=== PATIENT | male | born 1960 | race Caucasian/White ===

== ENCOUNTER 2020-06-23 13:44 | Inpatient (IN) | payer BC ==
[2020-06-23] MEDS ORDERED: Iopamidol-370 76% 500 ML 1 ML ONE (14:12)
[2020-06-23] MEDS ORDERED: Magnevist 469MG/ML 20 ML VIAL ONE ×3 (14:25)
[2020-06-23] MEDS ORDERED: Ondansetron PF 4 MG/2 ML Vial ONE (15:15)
[2020-06-23] MEDS ORDERED: Morphine 4 MG/ML VIAL ONE ×2 (15:15→17:52)
[2020-06-23 15:18] LABS: Hemoglobin 12.7 g/dL (14.0-18.0); Mean Corpuscular HGB CONC 31.9 g/dL (32.0-36.0); Mean Corpuscular Hemoglobin 28.1 pg (27.0-31.0); Mean Corpuscular Volume 87.8 fL (78.0-98.0); Mean Platelet Volume 9.3 fL (7.4-10.4); Platelet Count 174 thou/uL (130-400); RBC Distribution Width 12.9 % (11.5-14.5); Red Blood Cell (RBC) Count 4.51 mill/uL (4.70-6.10); White Blood Cell (WBC) Count 19.5 thou/uL (4.8-10.8)
[2020-06-23 15:38] LABS: ALT (SGPT) 32 U/L (8-55); AST (SGOT) 22 U/L (5-34); Albumin 2.5 g/dL (3.5-5.0); Alkaline Phosphatase 239 U/L (40-110); Anion Gap 23 mmol/L (10-20); BUN (Urea Nitrogen) 29 mg/dL (8.4-25.7); CK (CPK) 50 U/L (30-200); Calc. Creatinine Clearance 0 mL/min (70-130); Calcium 8.9 mg/dL (7.8-10.44); Carbon Dioxide 19 mmol/L (22-29); Chloride 93 mmol/L (98-107); Globulin 3.8 g/dL (2.4-3.5); Glucose 502 mg/dL (70-105); Potassium 4.1 mmol/L (3.5-5.1); Protein, Total 6.3 g/dL (6.0-8.3); Sodium 131 mmol/L (136-145)
[2020-06-23 15:40] LABS: Band 62 % (5-11); Lymphocytes 3 % (21-51); MDiff Complete? YES; Monocytes 1 % (0-10); Neutrophil 31 % (42-75); Platelet Morphology Comment Appears Adequate; Polychromasia SLIGHT = 2-3 cells (100X) (0-2/hpf); Reactive Lymphocytes 3 % (0-10); Reflex for Review?? YES; Target Cells SLIGHT = 2-5 cells (100X) (0-1/hpf)
--- NOTE | 2020-06-23 15:50 | RAD ---
Exam: Chest one view HISTORY:Sepsis workup. Fall Comparison: 08/18/2010 FINDINGS: Cardiac silhouette: Normal Aorta: Unremarkable Pulmonary vessels: Normal Costophrenic angles: Clear LUNGS: No masses or consolidation. Pneumothorax: None Osseous abnormalities: No acute osseous abnormalities. Low-grade chondroid lesion in the proximal lef t humerus IMPRESSION: No acute cardiopulmonary process.
[2020-06-23] MEDS ORDERED: Cefepime 2 GM VIAL ONE (15:59)
--- NOTE | 2020-06-23 16:00 | RAD ---
XR Foot Lt 3 View STANDARD INDICATION: Fall with left great toe pain COMPARISON: None. FINDINGS: Bones: There is diffuse osteopenia. No displaced fracture is evident. There is enthesopathic change o ff the calcaneus. Joints: There is scattered osteoarthrosis of the midfoot and forefoot. There is an accessory ossicle seen adjacent to the navicular. Lisfranc alignment: Lisfranc alignment appears within normal limits. Soft tissues: There is prominent soft tissue swelling of the left great toe. IMPRESSION: Prominent great toe soft tissue swelling. No acute fracture or subluxation demonstrated.
[2020-06-23 16:21] LABS: INR-International Normal Ratio 1.2; PTT 30.9 sec (22.9-36.1); Prothrombin Time 15.1 sec (12.0-14.7)
[2020-06-23 16:37] LABS: Bacteria/HPF None Seen HPF (None Seen); Bilirubin Negative (Negative); Blood, Urine 1+ (Negative); Clarity Clear (Clear); Glucose, Urine (Dipstick) Greater than 1000 mg/dL (Negative); Ketone, Urine Greater than 150 mg/dL (Negative); Leukocyte Negative Leu/uL (Negative); Mucous/LPF Rare LPF (<2+); Nitrite Negative (Negative); Protein, Urine (Dipstick) 30 mg/dL (Neg-Trace); Specific Gravity, Urine 1.027 (1.002-1.036); Squamous Epithelial 0-3 HPF (0-3); Urobilinogen Normal mg/dL (Less than 2); WBC/HPF 0-3 HPF (0-3)
[2020-06-23] MEDS ORDERED: Heparin 1,000 UNITS/ML VIAL ONE (16:38)
[2020-06-23 16:50] LABS: CKMB 0.8 ng/mL (0-6.6)
--- NOTE | 2020-06-23 16:59 | CT ---
CT Brain WO Con: 06/23/2020 4:56 PM CLINICAL HISTORY: History of fall with head injury. IMAGING TECHNIQUE: Multiple CT images were obtained of the brain without IV contrast. COMPARISON: None. FINDINGS: BRAIN: Evidence of acute infarct: None. Evidence of chronic ischemic change:None. Evidence of intracranial hemorrhage: None. Evidence of brain volume loss:None. Evidence of midline shift: Third ventricle and septum pellucidum are midline. Ventricles: Normal. No hydrocephalus. SKULL: Intact. VISUALIZED PARANASAL SINUSES: Clear. MASTOID AIR CELLS: Clear. EXTRACRANIAL SOFT TISSUES: Normal. IMPRESSION: No acute intracranial abnormality.
--- NOTE | 2020-06-23 17:08 | CT ---
EXAM: CT of the thoracic spine without contrast HISTORY: Back pain after fall 5 days ago COMPARISON: None TECHNIQUE: Multiple contiguous axial images were obtained in a CT of the thoracic spine without contr ast. Sagittal and coronal reformats were performed. FINDINGS: Degenerative changes are seen throughout the thoracic spine with multiple bridging osteophy shoshana. Diffuse osteopenia is seen. The vertebral bodies and intervertebral discs demonstrate normal height and alignment without fracture or subluxation. . Atelectasis is seen in the dependent aspect of the lungs. The heart is enlarged. Calcifications are seen in the coronary arteries and aorta.. No prevertebral soft tissue swelling is seen. IMPRESSION: Degenerative changes without evidence of acute osseous abnormality of the thoracic spine.
[2020-06-23] MEDS ORDERED: Vancomycin 1.5 GRAM/300 ML BAG 1.5 GM in Premix Bag 1 BAG IVPB SCH (17:30)
--- NOTE | 2020-06-23 17:40 | CT ---
EXAM: CT neck with contrast HISTORY: Severe neck pain. Evaluate for abscess. COMPARISON: None TECHNIQUE: Multiple contiguous axial images were obtained and a CT of the neck with contrast. Sagitta l and coronal reformats were performed. FINDINGS: No mucosal abnormality is seen in the nasopharynx, oropharynx, hypopharynx, or subglottic regions. The parapharyngeal spaces are symmetric. No focal fluid collection is seen in the soft tissues of the neck. No cervical adenopathy is seen. The salivary glands are symmetric without focal abnormality. The thyroid is unremarkable. Moderate to severe degenerative changes are seen throughout cervical spine with multiple anterior mike dging osteophytes. There is no evidence of acute fracture or subluxation. The visualized intracranial structures are unremarkable. The lung apices are unremarkable. IMPRESSION: No significant soft tissue abnormality of the neck.
--- NOTE | 2020-06-23 18:00 | CT ---
EXAM: LUMBAR SPINE CT SCAN WITHOUT IV CONTRAST: 06/23/20 HISTORY: Pain following an injury, fall. FINDINGS: There is very severe bone demineralization. Fairly extensive multilevel disc osteophytosis and facet arthrosis changes. No evidence for acute lumbar spine fracture. There are several tiny punctate foci of gas adjacent to the left 11th rib probably related to a more superior adjacent rib fracture. Small right lobe of liver medial cyst. No significant lumbar spine significant canal, lateral recess, or f oraminal stenosis. IMPRESSION: Significant bone demineralization. Generalized spondylosis. No acute lumbar spine fracture or disloca tion or significant stenosis. POS: RRE
[2020-06-23] MEDS ORDERED: Lorazepam 2 MG/ML VIAL ONE (18:24)
--- NOTE | 2020-06-23 19:56 | PDOC.HHP ---
Hospitalist LEXI Back pain, weakness History of Present Illness: Patient is a 59 year old male with PMH DM who presents via EMS for back and neck pain. Patient spouse provided history to ED staff that patient had been weak recently and last weekend fell walking to restroom. Ambulation became more difficult over week and patient had to start using a walker. He reports hitting L ribs and foot when he fell 5 days ago. Neck pain and neck ROM has significantly worsened since falling. Patient reports he has difficulty using his arms and legs. He has He has had 1 episode of urinary incontinence. No reported fever or chills. He has reported some dizziness. Patient went to homeopathic doctor who tested patient positive for Saulo Tyson Virus. Patient described the weakness as ascending from feet upwards. He developed wound on foot 2 weeks ago which has progressed to involve the great toe and up to front of dorsum of foot. In ED, pulse 111, temperature 100.5. WBC 19.5, glucose elevated, CO2 low and anion gap elevated. UA positive for glucose and ketones. beta hydroxybutyrate positive. Patient to be admitted for sepsis, suspected secondary to toe osteomyelitis and also weakness. Allergies/Adverse Reactions: Allergy/AdvReac Type Severity Reaction Status Date / Time No Known Allergies Allergy Unverified 06/23/20 17:24 Past History: PMHx: no significant PMH PSHx: no significant PSH FHx: no significant FH Social: denies alcohol, drug, smoking history Hospitalist LEXI KLEIN Constitutional: reports: fever, chills, sweats, weakness, malaise Eyes: denies: pain, vision change, conjunctivae inflammation, eyelid inflammation, redness, other ENT: denies: ear pain, ear discharge, nose pain, nose discharge, nose congestion, mouth pain, mouth swelling, throat pain, throat swelling, other Respiratory: denies: cough, dry, shortness of breath, hemoptysis, SOB with excertion, pleuritic pain, sputum, wheezing, other Cardiovascular: denies: chest pain, palpitations, orthopnea, paroxysmal noc. dyspnea, edema, light headedness, other Genitourinary: reports: incontinence. denies: dysuria, frequency, hematuria, retention, other Musculoskeletal: reports: neck pain, shoulder pain, arm pain, back pain, leg pain Skin: reports: rash (L great tow), lesions Neurological: reports: weakness, numbness All other systems reviewed; all pertinent +/- noted in HPI/Subj Hospitalist Exam General Appearance: NAD, awake alert, ill appearing Eye: PERRL, anicteric sclera ENT: normocephalic atraumatic, no oropharyngeal lesions, moist mucosa Neck: supple, symmetric, no JVD, no thyromegaly, no lymphadenopathy, no carotid bruit Heart: RRR, no murmur, no gallops, no rubs, normal peripheral pulses Respiratory: CTAB, no wheezes, no rales, no ronchi, normal chest expansion, no tachypnea, normal percussion Gastrointestinal: soft, non-tender, non-distended, normal bowel sounds, no palpable masses, no hepatomegaly, no splenomegaly, no bruit Extremities: no cyanosis, no clubbing, no edema Skin: normal turgor Skin - other findings: 1cm ulcer L great toe w/ erythema to toe and foot Neurological: cranial nerve grossly intact, normal sensation to touch Neurological - other findings: flaccid paralysis of both legs, sensation preserved, arms 3/5 strength Musculoskeletal: normal tone, normal strength, no muscle wasting Psychiatric: normal affect, normal behavior, A&O x 3, lethargic Hospitalist Results Result Diagrams: 06/23/20 15:07 06/24/20 01:50 Lab results: Laboratory Last Values WBC 19.5 thou/uL (4.8-10.8) H 06/23/20 15:07 RBC 4.51 mill/uL (4.70-6.10) L 06/23/20 15:07 Hgb 12.7 g/dL (14.0-18.0) L 06/23/20 15:07 Hct 39.6 % (42.0-52.0) L 06/23/20 15:07 MCV 87.8 fL (78.0-98.0) 06/23/20 15:07 MCH 28.1 pg (27.0-31.0) 06/23/20 15:07 MCHC 31.9 g/dL (32.0-36.0) L 06/23/20 15:07 RDW 12.9 % (11.5-14.5) 06/23/20 15:07 Plt Count 174 thou/uL (130-400) 06/23/20 15:07 MPV 9.3 fL (7.4-10.4) 06/23/20 15:07 Neutrophils % (Manual) 31 % (42-75) L 06/23/20 15:07 Band Neuts % (Manual) 62 % (5-11) H 06/23/20 15:07 Lymphocytes % (Manual) 3 % (21-51) L 06/23/20 15:07 Reactive Lymphs % 3 % (0-10) 06/23/20 15:07 Monocytes % (Manual) 1 % (0-10) 06/23/20 15:07 Lymphocytes # Not Reportable 06/23/20 15:07 Plt Morphology Comment Appears Adequate 06/23/20 15:07 Polychromasia SLIGHT = 2-3 cells (100X) (0-2/hpf) 06/23/20 15:07 Target Cells SLIGHT = 2-5 cells (100X) (0-1/hpf) 06/23/20 15:07 ESR Westergren 68 mm/hr (Less than 20) H 06/23/20 15:51 PT 15.1 sec (12.0-14.7) H 06/23/20 15:51 INR 1.2 06/23/20 15:51 APTT 30.9 sec (22.9-36.1) 06/23/20 15:51 Sodium 131 mmol/L (136-145) L 06/23/20 15:08 Potassium 4.1 mmol/L (3.5-5.1) 06/23/20 15:08 Chloride 93 mmol/L (98-107) L 06/23/20 15:08 Carbon Dioxide 19 mmol/L (22-29) L 06/23/20 15:08 Anion Gap 23 mmol/L (10-20) H 06/23/20 15:08 BUN 29 mg/dL (8.4-25.7) H 06/23/20 15:08 Creatinine 0.95 mg/dL (0.7-1.3) 06/23/20 15:08 Estimated GFR (MDRD) 81 06/23/20 15:08 Glucose 502 mg/dL (70-105) H 06/23/20 15:08 POC Glucose 452 mg/dL (70-100) H 06/23/20 15:19 Lactic Acid 1.5 mmol/L (0.5-2.2) 06/23/20 15:07 Calcium 8.9 mg/dL (7.8-10.44) 06/23/20 15:08 Total Bilirubin 1.0 mg/dL (0.2-1.2) 06/23/20 15:08 AST 22 U/L (5-34) 06/23/20 15:08 ALT 32 U/L (8-55) 06/23/20 15:08 Alkaline Phosphatase 239 U/L (40-110) H 06/23/20 15:08 Creatine Kinase 50 U/L (30-200) 06/23/20 15:08 CK-MB (CK-2) 0.8 ng/mL (0-6.6) 06/23/20 15:51 Troponin I 0.087 ng/mL (< 0.028) H 06/23/20 15:51 C-Reactive Protein 30.52 mg/dL (= or < 0.5) H 06/23/20 15:51 Serum Total Protein 6.3 g/dL (6.0-8.3) 06/23/20 15:08 Albumin 2.5 g/dL (3.5-5.0) L 06/23/20 15:08 Globulin 3.8 g/dL (2.4-3.5) H 06/23/20 15:08 Albumin/Globulin Ratio 0.7 g/dL (1.2-2.2) L 06/23/20 15:08 Urine Color Light-Yellow (Yellow) 06/23/20 16:15 Urine Clarity Clear (Clear) 06/23/20 16:15 Urine pH 5.0 (5.0-9.0) 06/23/20 16:15 Ur Specific [place] 1.027 (1.002-1.036) 06/23/20 16:15 Urine Protein 30 mg/dL (Neg-Trace) A 06/23/20 16:15 Urine Glucose (UA) Greater than 1000 mg/dL (Negative) A 06/23/20 16:15 Urine Ketones Greater than 150 mg/dL (Negative) A 06/23/20 16:15 Urine Blood 1+ (Negative) A 06/23/20 16:15 Urine Nitrite Negative (Negative) 06/23/20 16:15 Urine Bilirubin Negative (Negative) 06/23/20 16:15 Urine Urobilinogen Normal mg/dL (Less than 2) 06/23/20 16:15 Ur Leukocyte Esterase Negative Az/uL (Negative) 06/23/20 16:15 Urine RBC 4-6 HPF (0-3) A 06/23/20 16:15 Urine WBC 0-3 HPF (0-3) 06/23/20 16:15 Ur Squamous Epith Cells 0-3 HPF (0-3) 06/23/20 16:15 Urine Bacteria None Seen HPF (None Seen) 06/23/20 16:15 Hyaline Casts 4-6 LPF (0-3) A 06/23/20 16:15 Urine Mucus Rare LPF (<2+) 06/23/20 16:15 B-Hydroxybutyrate 7.17 mmol/L (0.02-0.27) H 06/23/20 15:07 Blood Type O POSITIVE 06/23/20 16:14 Antibody Screen NEGATIVE 06/23/20 15:51 Additional comment: Radiology CT Thoracic Spine WO Con Observe DT: FriJun 23, 2020 15:30 IMPRESSION: Degenerative changes without evidence of acute osseous abnormality of the thoracic spine. CT Brain WO Con Observe DT: FriJun 23, 2020 15:30 IMPRESSION: No acute intracranial abnormality. XR Foot Lt 3 View STANDARD Observe DT: FriJun 23, 2020 15:27 IMPRESSION: Prominent great toe soft tissue swelling. No acute fracture or subluxation demonstrated. XR Chest 1 View Portable Observe DT: FriJun 23, 2020 15:22 IMPRESSION: No acute cardiopulmonary process. CT Neck Soft Tissue W Con Observe DT: FriJun 23, 2020 16:49 IMPRESSION: No significant soft tissue abnormality of the neck. L spine CT: no acute fx MRI w/ contrast of CTL spine: rib fractures, no evidence of epidural abscess EKG 107 sinus tachycardia FL 150 QTc [address] changes, no AVB Hospitalist H&P A/P Plan: Patient is a 59 year old male with PMH DM who presents via EMS for back and neck pain. # sepsis suspsected secondary to L 1st toe osteomyelitis - 2 weeks ago developed ulcer on L 1st toe, no pain, now w/ erythema extending up foot - consult orthopedic surgery - monitor vital signs - vancomycin/ceftriaxone - follow culture results # ascending flassid paralysis # recent dx of saulo tyson virus - patient had been weak recently, falling, had to start using a walker. patient positive for Saulo Tyson Virus this week. exam concerning for ascending paralysis which needs to be ruled out for guillain barre syndrome - discussed with Dr Gallagher and ED doctor, LP unsuccessful, IR order placed for LP, cultures/chemisries ordered - need to start empiric treatment with IVIG while awaiting LP in AM, ordered IVIG - neurology consult - RT to check vital capacity and NIF every 4 hours initially - consult critical care medicine in AM # L rib fracture - neurosurgery/orthopedics to consult, PRN pain medications # diabetes w/ DKA glucose elevated, CO2 low and anion gap elevated. UA positive for glucose and ketones. beta hydroxybutyrate positive - DKA protocol/insulin drip DVT/GI ppx 80 minutes critical care time
--- NOTE | 2020-06-23 20:13 | MRI ---
EXAM: MRI thoracic spine without and with contrast HISTORY: Back pain and fever COMPARISON: None TECHNIQUE: Multiplanar multisequence MR images were obtained of the thoracic spine without and with c ontrast. FINDINGS: Well-circumscribed foci of high T1 and T2 signal within the T4, T5, T8, and T9 vertebral bodies likel y represent hemangiomas. The vertebral bodies and intervertebral discs demonstrate normal height and alignment without fractur e or subluxation. The visualized cord demonstrates normal signal throughout. There is a small amount of soft tissue swelling surrounding the left posterior rib fractures seen on CT. There is a trace left pleural effusion. No paraspinal soft tissue abnormality is seen. No abnormal enhancement is seen in the central canal on this exam to suggest an epidural abscess. T1/2: No significant posterior bulge or protrusion. No posterior facet arthrosis. No central canal stenosis. No neural foraminal stenosis. T2/3: No significant posterior bulge or protrusion. No posterior facet arthrosis. No central canal stenosis. No neural foraminal stenosis. T3/4: No significant posterior bulge or protrusion. No posterior facet arthrosis. No central canal stenosis. No neural foraminal stenosis. T4/5: No significant posterior bulge or protrusion. No posterior facet arthrosis. No central canal stenosis. No neural foraminal stenosis. T5/6: No significant posterior bulge or protrusion. No posterior facet arthrosis. No central canal stenosis. No neural foraminal stenosis. T6/7: No significant posterior bulge or protrusion. No posterior facet arthrosis. No central canal stenosis. No neural foraminal stenosis. T7/8: No significant posterior bulge or protrusion. No posterior facet arthrosis. No central canal stenosis. No neural foraminal stenosis. T8/9: No significant posterior bulge or protrusion. No posterior facet arthrosis. No central canal stenosis. No neural foraminal stenosis. T9/10: No significant posterior bulge or protrusion. No posterior facet arthrosis. No central canal stenosis. No neural foraminal stenosis. T10/11: No significant posterior bulge or protrusion. No posterior facet arthrosis. No central nano l stenosis. No neural foraminal stenosis. T11/12: No significant posterior bulge or protrusion. No posterior facet arthrosis. No central nano l stenosis. No neural foraminal stenosis. T12/L1: No significant posterior bulge or protrusion. No posterior facet arthrosis. No central nano l stenosis. No neural foraminal stenosis. IMPRESSION: 1. No evidence of epidural abscess. 2. Left rib fractures with trace left pleural effusion
--- NOTE | 2020-06-23 20:14 | MRI ---
EXAM: MRI lumbar spine without and with contrast HISTORY: Back pain and fever COMPARISON: None TECHNIQUE: Multiple planar multisequence MR images were obtained of the lumbar spine without and with contrast. FINDINGS: The vertebral bodies and intervertebral discs demonstrate normal height and alignment without fractur e or subluxation. The prevertebral and paraspinal soft tissues are unremarkable. No marrow signal abnormality is present. The conus medullaris terminates normally at T12/L1. No abnormal enhancement is seen on this examination. T12/L1: No significant posterior bulge or protrusion. No posterior facet arthrosis. No central nano l stenosis. No neural foraminal stenosis L1/2: No significant posterior bulge or protrusion. No posterior facet arthrosis. No central canal stenosis. No neural foraminal stenosis L2/3: No significant posterior bulge or protrusion. No posterior facet arthrosis. No central canal stenosis. No neural foraminal stenosis L3/4: No significant posterior bulge or protrusion. No posterior facet arthrosis. No central canal stenosis. No neural foraminal stenosis L4/5: No significant posterior bulge or protrusion. No posterior facet arthrosis. No central canal stenosis. No neural foraminal stenosis L5/S1: No significant posterior bulge or protrusion. No posterior facet arthrosis. No central canal stenosis. No neural foraminal stenosis IMPRESSION: No evidence of epidural abscess in the lumbar spine
--- NOTE | 2020-06-23 20:18 | MRI ---
EXAM: MRI cervical spine without and with contrast HISTORY: Neck pain and fever COMPARISON: None TECHNIQUE: Multiplanar multisequence MR images were obtained of the cervical spine without and with c ontrast. FINDINGS: There is generalized disc desiccation in the cervical spine. Multiple bridging anterior osteophytes a re seen. The vertebral bodies and intervertebral discs demonstrate normal height and alignment without fractur e or subluxation. The visualized cord demonstrates normal signal throughout. The craniocervical junction is unremarkab le. No abnormal enhancement is seen on this examination. The prevertebral soft tissues are unremarkable. No paraspinal soft tissue abnormality is seen. C2/3: No significant posterior bulge or protrusion. No posterior facet arthrosis. No central canal stenosis. No neural foraminal stenosis. C3/4: No significant posterior bulge or protrusion. No posterior facet arthrosis. No central canal stenosis. No neural foraminal stenosis. C4/5: Small disc osteophyte complex. No posterior facet arthrosis. Mild central canal stenosis. No neural foraminal stenosis. C5/6: Small to moderate disc osteophyte complex. No posterior facet arthrosis. Moderate central can al stenosis. Mild bilateral neural foraminal stenosis. C6/7: Minimal discussed by complex. No posterior facet arthrosis. Mild central canal stenosis. No neural foraminal stenosis. C7/T1: No significant posterior bulge or protrusion. No posterior facet arthrosis. No central canal stenosis. No neural foraminal stenosis. IMPRESSION: 1. No evidence of epidural abscess in the cervical region. 2. Degenerative changes of the cervical spine as above
[2020-06-23] MEDS ORDERED: INSULIN REGULAR IN 0.9 % NACL 100 UNIT/100 ML BAG ONE (21:08)
[2020-06-23] MEDS ORDERED: Insulin Regular 300 UNITS/3 ML VIAL ONE (21:08)
[2020-06-23] MEDS ORDERED: hydrALAZINE 20 MG/ML VIAL SLOW IVP PRN (21:09)
[2020-06-23] MEDS ORDERED: Morphine 2 MG/ML VIAL SLOW IVP PRN (21:09)
[2020-06-23] MEDS ORDERED: cloNIDine 0.1 MG TAB PO PRN (21:09)
[2020-06-23] MEDS ORDERED: Labetalol HCl 100 MG/20 ML VIAL SLOW IVP PRN (21:09)
[2020-06-23] MEDS ORDERED: Acetaminophen 325 MG TAB PO PRN (21:09)
[2020-06-23] MEDS ORDERED: Guaifenesin DM 100-10/5 ML UDCUP PO PRN (21:09)
[2020-06-23] MEDS ORDERED: Promethazine HCl 12.5 MG in Sodium Chloride 0.9% 50 ML IVPB PRN (21:09)
[2020-06-23] MEDS ORDERED: Electrolyte Replacement Protocol 1 EACH FS SCH (21:15)
[2020-06-23] MEDS ORDERED: Electrolyte Replacement Protocol 1 EACH IVPB PRN (21:45)
[2020-06-23] MEDS ORDERED: D5 1/2 NS w/20 mEq KCL 1,000 ML IV PRN (21:45)
[2020-06-23] MEDS ORDERED: NS 0.9% w/ 20 MEQ KCL 1,000 ML IV PRN ×2 (21:45)
[2020-06-23] MEDS ORDERED: Sodium Chloride 0.9% 1,000 ML IV PRN ×4 (21:45)
[2020-06-23] MEDS ORDERED: HUMULIN R 100 UNITS in Sodium Chloride 0.9% 100 ML IVPB SCH (21:45)
[2020-06-23] MEDS ORDERED: Dextrose 5 %-0.45 % NaCl 1,000 ML IV PRN (21:45)
[2020-06-23] MEDS: Sodium Chloride 0.9% 1,000 ML IV SCH (21:47)
[2020-06-23] MEDS ORDERED: cefTRIAXone\\ROCEPHIN 2 GM in Sodium Chloride 0.9% 100 ML IVPB SCH (22:00)
[2020-06-23 22:25] LABS: Anion Gap 21 mmol/L (10-20); BUN (Urea Nitrogen) 32 mg/dL (8.4-25.7); Calc. Creatinine Clearance 0 mL/min (70-130); Calcium 8.5 mg/dL (7.8-10.44); Carbon Dioxide 18 mmol/L (22-29); Chloride 99 mmol/L (98-107); Glucose 476 mg/dL (70-105); Potassium 4.2 mmol/L (3.5-5.1); Sodium 134 mmol/L (136-145)
[2020-06-24 02:16] LABS: Anion Gap 13 mmol/L (10-20); BUN (Urea Nitrogen) 28 mg/dL (8.4-25.7); Calc. Creatinine Clearance 0 mL/min (70-130); Calcium 8.5 mg/dL (7.8-10.44); Carbon Dioxide 22 mmol/L (22-29); Chloride 104 mmol/L (98-107); Glucose 287 mg/dL (70-105); Potassium 3.8 mmol/L (3.5-5.1); Sodium 135 mmol/L (136-145)
[2020-06-24 05:04] LABS: Anion Gap 10 mmol/L (10-20); BUN (Urea Nitrogen) 28 mg/dL (8.4-25.7); Calc. Creatinine Clearance 0 mL/min (70-130); Calcium 8.4 mg/dL (7.8-10.44); Carbon Dioxide 22 mmol/L (22-29); Chloride 108 mmol/L (98-107); Glucose 197 mg/dL (70-105); Magnesium 1.5 mg/dL (1.6-2.6); Sodium 136 mmol/L (136-145)
[2020-06-24 05:13] LABS: Phosphorus 1.7 mg/dL (2.3-4.7)
[2020-06-24 06:04] LABS: SARS-CoV-2 NAA Rapid Test DETECTED (NotDetected)
[2020-06-24] MEDS: PHOS-NAK 1 PKT PACK PO SCH ×2 (06:15→12:51)
[2020-06-24 06:17] LABS: Band 23 % (5-11); Eosinophils 1 % (0-10); Hemoglobin 11.2 g/dL (14.0-18.0); Lymphocytes 9 % (21-51); MDiff Complete? YES; Mean Corpuscular HGB CONC 31.8 g/dL (32.0-36.0); Mean Corpuscular Hemoglobin 27.8 pg (27.0-31.0); Mean Corpuscular Volume 87.5 fL (78.0-98.0); Mean Platelet Volume 9.4 fL (7.4-10.4); Neutrophil 67 % (42-75); Platelet Count 156 thou/uL (130-400); RBC Distribution Width 12.9 % (11.5-14.5); Red Blood Cell (RBC) Count 4.01 mill/uL (4.70-6.10); White Blood Cell (WBC) Count 17.4 thou/uL (4.8-10.8)
[2020-06-24 06:51] LABS: Anion Gap 9 mmol/L (10-20); BUN (Urea Nitrogen) 27 mg/dL (8.4-25.7); Calc. Creatinine Clearance 0 mL/min (70-130); Calcium 8.4 mg/dL (7.8-10.44); Carbon Dioxide 25 mmol/L (22-29); Chloride 108 mmol/L (98-107); Glucose 171 mg/dL (70-105); Potassium 4.1 mmol/L (3.5-5.1); Sodium 138 mmol/L (136-145)
[2020-06-24 07:55] LABS: Anion Gap 10 mmol/L (10-20); BUN (Urea Nitrogen) 30 mg/dL (8.4-25.7); Calc. Creatinine Clearance 0 mL/min (70-130); Calcium 8.4 mg/dL (7.8-10.44); Carbon Dioxide 24 mmol/L (22-29); Chloride 108 mmol/L (98-107); Glucose 164 mg/dL (70-105); Potassium 4.2 mmol/L (3.5-5.1); Sodium 138 mmol/L (136-145)
[2020-06-24] MEDS ORDERED: Dextrose 5% in Water 1,000 ML IV PRN (09:00)
[2020-06-24] MEDS ORDERED: Insulin Glargine 15 UNITS in Pre-Filled Syringe 1 EACH SC SCH ×2 (09:00→21:00)
[2020-06-24] MEDS ORDERED: Dextrose 50% Abboject 50 ML SYRINGE SLOW IVP PRN (09:00)
[2020-06-24] MEDS ORDERED: Magnesium 2 GM/50 ML 2 GM in Premix Bag 1 BAG IVPB SCH (09:30)
[2020-06-24] MEDS ORDERED: Dexamethasone 4 mg/ml Vial SLOW IVP SCH (09:30)
[2020-06-24] MEDS ORDERED: VANCOMYCIN 1.75 GM/350 ML BAG 1.75 GM in Premix Bag 1 BAG IVPB SCH (10:00)
[2020-06-24] MEDS: Famotidine 20 MG TAB PO SCH ×2 (10:05→19:54)
[2020-06-24] MEDS: Sodium Chloride 0.9% 1,000 ML IV SCH ×2 (10:18→16:32)
--- NOTE | 2020-06-24 12:08 | MRI ---
MRI BRAIN WITH AND WITHOUT CONTRAST: DATE: 06/24/2020 HISTORY: 59-year-old male with "ascending weakness" At 12:02 PM, 06/24/2020 Dr. Powell reported the acute infarctions by telephone to nurse rose Valladares and COMPARISON: 08/21/2010 TECHNIQUE: Multiplanar, multisequence MRI of the brain performed pre- and post-IV injection of gadolinium based contrast agent. FINDINGS: New finding of multiple small foci of restricted diffusion representing acute infarctions, in the shelly ateral frontal and parietal cerebrum, in watershed zones between MCA and SYBIL. There is also a small acute infarction at the splenium of the corpus callosum, to the right of midline, as well as several in the right occipital lobe. There are also multiple small and tiny acute infarctions in the bilateral cerebellar hemispheres, rig ht greater than left. Many of these acute infarctions have mildly hyperintense signal intensity on FLAIR and T2 WI. No dural venous sinus thrombosis. No abnormal intra-axial enhancement, mass, mass effect, midline shift, obstructive hydrocephalus, or extra-axial fluid collection. No acute or remote intra-axial hemorrhage. Flow voids are grossly maintained in the central main arteries of [place] of [place]. IMPRESSION: 1) numerous small and tiny acute bilateral cerebral infarctions in watershed zones between middle cer ebral artery and anterior cerebral artery territories. 2) numerous small and tiny bilateral cerebellar acute infarctions.
[2020-06-24] MEDS: Polyethylene Glycol 3350 17 GM Packet PO SCH (12:48)
--- NOTE | 2020-06-24 13:07 | PDOC.HOSPP ---
- Subjective Subjective: Patient was seen examined at bedside. He complained of generalized weakness. His anion gap has closed. His blood glucose has been stable. Blood culture came back positive for strep. - Objective Vital Signs & Weight: Weight Weight 199 lb 8.293 oz Result Diagrams: 06/24/20 04:16 06/24/20 07:28 Additional Labs: Accuchecks 06/24/20 06/24/20 06/24/20 10:12 07:17 06:21 POC Glucose 193 H 145 H 151 H 06/24/20 06/24/20 06/24/20 05:04 04:15 03:03 POC Glucose 156 H 186 H 214 H 06/24/20 06/24/20 06/24/20 02:08 01:11 00:12 POC Glucose 244 H 283 H 317 H 06/23/20 06/23/20 06/23/20 22:22 21:16 15:19 POC Glucose 396 H 433 H 452 H Radiology Reviewed by me: Yes EKG Reviewed by me: Yes Hospitalist ROS - Medication Medications: Active Medications Generic Name Dose Route Start Last Admin Trade Name Freq PRN Reason Stop Dose Admin Famotidine 20 mg 06/24/20 09:00 06/24/20 10:05 Famotidine 20 Mg Tab PO 20 mg BID JULIÁN Administration Ceftriaxone Sodium 2 gm/ 100 mls @ 200 mls/hr 06/23/20 22:00 06/24/20 05:49 Sodium Chloride IVPB Not Given 2200 JULIÁN Sodium Chloride 1,000 mls @ 100 mls/hr 06/23/20 21:30 06/24/20 10:18 Normal Saline 0.9% IV 1,000 mls .Q10H JULIÁN Administration Insulin Glargine 15 units/ 0.15 mls @ 0 mls/hr 06/24/20 09:00 06/24/20 10:15 Miscellaneous Medication SC 0.15 mls QAM JULIÁN Administration Miscellaneous Medication 1 each 06/23/20 21:45 06/24/20 05:50 Electrolyte Replacement Protocol 1 Each IVPB 1 each PRN PRN Administration ELECTROLYTES Polyethylene Glycol 17 gm 06/24/20 09:00 06/24/20 12:48 Polyethylene Glycol 3350 17 Gm Packet PO Not Given DAILY JULIÁN Hospitalist Exam Vitals: Weight Weight 199 lb 8.293 oz General Appearance: NAD Eye: PERRL ENT: normocephalic atraumatic Neck: supple Heart: RRR Respiratory: CTAB Gastrointestinal: soft Extremities: no cyanosis Extremities - other findings: Left great toe ulcer. Skin: normal turgor Neurological - other findings: b/l LE weakness 2/5 Psychiatric: normal affect, normal behavior Hosp A/P - Plan Patient is a pleasant 59 years old gentleman who has significant past medical history of diabetes, who presented to ED with complaining of back and neck pain after status post fall about 5 days ago. He had problem with ambulation, and weakness over the past week. Acute CVA - concerned for septic emboli vs other etiology --cont tele monitor for arrhythmias --Continue with stroke work-up including CTA of the head and neck, 2D echo, PT/SP eval --Continue neurochecks. Neurology consult. --Check fasting lipid panel, hemoglobin A1c for further risk factor modifications Sepsis, POA, likely secondary to left great toe osteomyelitis --Continue Rocephin/vancomycin, add meropenem given history of uncontrolled diabetes --follow cultures --ID consult Strep bacterememia --check 2 Echo, may need ROBB --ID consult, mgt as above Left great toe osteomyelitis --Continue IV antibiotic as above. Ortho consult appreciated Acute hypoxic respiratory failure secondary to Covid 19 infection - unclear onset of symptoms, but weakness started about a week ago --Start Decadron, continue O2 supplement. Vitamin C/D/zinc. --Start convalescent plasma. Consult ID to see if patient is a candidate for remdesivir --cont Lovenox for DVT ppx Uncontrolled diabetes with DKA --Anion gap closed. Transition to subcu insulin. Monitor blood glucose closely as patient is on Decadron. --Check hemoglobin A1c Generalized weakness - ? Ascending paralysis --Initially there was concern for possible Guillain-Tyson syndrome given the fact that patient had history of EBV infection few months ago. --However, his MRI came back confirmed patient has CVA. Patient had a LP done, will follow culture and CSF analysis --Cont neurocheck.
[2020-06-24] MEDS ORDERED: MEROPENEM 1 GM/50 ML 1 GM in Premix Bag 1 BAG IVPB SCH (14:00)
[2020-06-24 14:14] LABS: CSF, Glucose 115 mg/dl (40-70); CSF, Protein 33 mg/dL (15-40)
[2020-06-24 14:28] VITALS: BMI 27.0
[2020-06-24] MEDS ORDERED: Iopamidol-370 76% 500 ML 1 ML ONE (14:34)
[2020-06-24] MEDS ORDERED: Magnevist 469MG/ML 20 ML VIAL ONE (14:44)
[2020-06-24 14:54] LABS: CSF Source CSF; Clarity Clear (Clear); Tube # 4
[2020-06-24 15:00] LABS: Cell Count Non Hematic 2 %; Lymphocytes 13 %; Segmented Neutrophils 85 %
[2020-06-24] MEDS ORDERED: OCTAGAM 10% 30 GM in Admixture Fee 1 EACH IVPB SCH (15:00)
--- NOTE | 2020-06-24 16:09 | CT ---
CT ANGIOGRAM NECK WITH CONTRAST CT ANGIOGRAM BRAIN WITH AND WITHOUT CONTRAST: DATE: 06/24/2020 HISTORY: 59-year-old male with acute watershed infarctions TECHNIQUE: After IV contrast injection, arterial bolus chasing technique scan performed from AP window to vertex of head. Coronal and sagittal 3-D MIP reconstructions. FINDINGS: No high-grade calcified atheromatous plaque visualized in any artery. Noncalcified mild plaque causing mild stenoses at origins of bilateral vertebral arteries. Otherwise, the rest of the bilateral vertebral, brachiocephalic, bilateral subclavian, bilateral comm on carotid, bilateral internal carotid, arteries, are normal. Minimal calcified plaque at bilateral carotid siphons without stenosis. The M1 and M2 segments of the bilateral MCAs, A1 and A2 segments of bilateral ACAs, basilar, bilatera l rehabilitation worker, arteries, are normal. Bilateral PICAs and AICAs are patent. Bilateral pleural effusions almost reached the apices. Nonspecific hazy groundglass densities in bilateral upper lobes. Small focal consolidations in upper lobes medially, left greater than right. Bridging osteophytes protruding the prevertebral space throughout almost the entire cervical spine. No dural venous sinus thrombosis. IMPRESSION: 1) please note that watershed infarctions are in general, due to drops in systemic blood pressure. 2) mild stenoses at origins of bilateral vertebral arteries. 3) Otherwise Essentially normal major arteries of head and neck 4) bilateral pleural effusions and nonspecific infiltrates at bilateral lung apices. 5.) DISH (diffuse idiopathic skeletal hyperostosis).
--- NOTE | 2020-06-24 16:46 | RAD ---
Radiograph left great toe 3 views: 06/24/2020 HISTORY: Soft tissue swelling of big toe FINDINGS: There is diffuse soft tissue swelling. No evidence of permeative, osteolytic, or osteoblastic lesion. Joint spaces are maintained without erosions or significant osteophytes. No periostitis or fracture. No subcutaneous emphysema or soft tissue calcification. IMPRESSION: 1. Diffuse soft tissue edema of the first digit of the left foot. 2. No destructive osseous lesion or fracture identified
--- NOTE | 2020-06-24 16:56 | CON ---
DATE OF CONSULTATION: 06/24/2020 Mr. Jett is a 59-year-old gentleman with a history of diabetes, who presented to the emergency department yesterday for increased weakness and difficulty walking. His weakness is reported throughout his extremities. He also has neck and back pain. Cranial and spinal CTs and MRIs were negative for obvious neurosurgical pathology. There was no significant stenosis or evidence of epidural hematoma seen on cervical, thoracic, or lumbar imaging. MRI of the thoracic spine demonstrated signal changes consistent with CSF pulsations, but again there was no evidence of epidural hematoma or spinal cord compression. CT of the brain was negative for acute intracranial abnormalities. There is no evidence of cranial or spinal source for infection, and there is no neurosurgical intervention indicated at this time. Job ID: [id number] [facility]
--- NOTE | 2020-06-24 17:16 | CON ---
NEUROLOGY CONSULTATION DATE OF CONSULTATION: 06/24/2020 REASON FOR CONSULTATION: Bilateral lower extremity weakness, back and neck pain. HISTORY OF PRESENT ILLNESS: Mr. Av Jett is a 59-year-old male with a history significant for diabetes mellitus, who presented to the emergency room with lower back and neck pain with inability to move the legs. History is obtained from the patient and also from review of the medical records. Per patient's spouse, the patient has been weaker recently since the last week and he fell while going to the restroom and since then, he has difficulty ambulation and he has started using a walker. He went to the homeopathic doctor and tested positive for Saulo Tyson virus. There was some concern about weakness in the feet and the legs since he was unable to raise both legs without urinary or bowel incontinence. In the emergency room, MRI of the spine was done, which includes cervical, thoracic and lumbar spine, which was essentially unremarkable. Urinalysis was positive for glucose and ketone, and the patient was admitted for sepsis, suspected secondary to osteomyelitis and also for bilateral lower extremity weakness. ALLERGIES: NO KNOWN DRUG ALLERGIES. PAST MEDICAL HISTORY: No significant past medical history. PAST SURGICAL HISTORY: No significant past surgical history. FAMILY HISTORY: No significant family history. SOCIAL HISTORY: , lives with his . Denies smoking, alcohol, or illegal drug use. REVIEW OF SYSTEMS: All systems reviewed and were negative except for the pertinent positives and negatives mentioned in the HPI. Vital Signs & Weight: Weight Weight 199 lb 8.293 oz Result Diagrams: 06/24/20 04:16 06/24/20 07:28 Additional Labs: Accuchecks 06/24/20 06/24/20 06/24/20 10:12 07:17 06:21 POC Glucose 193 H 145 H 151 H 06/24/20 06/24/20 06/24/20 05:04 04:15 03:03 POC Glucose 156 H 186 H 214 H 06/24/20 06/24/20 06/24/20 02:08 01:11 00:12 POC Glucose 244 H 283 H 317 H 06/23/20 06/23/20 06/23/20 22:22 21:16 15:19 POC Glucose 396 H 433 H 452 H Active Medications Generic Name Dose Route Start Last Admin Trade Name Freq PRN Reason Stop Dose Admin Famotidine 20 mg 06/24/20 09:00 06/24/20 10:05 Famotidine 20 Mg Tab PO 20 mg BID JULIÁN Administration Ceftriaxone Sodium 2 gm/ 100 mls @ 200 mls/hr 06/23/20 22:00 06/24/20 05:49 Sodium Chloride IVPB Not Given 2200 JULIÁN Sodium Chloride 1,000 mls @ 100 mls/hr 06/23/20 21:30 06/24/20 10:18 Normal Saline 0.9% IV 1,000 mls .Q10H JULIÁN Administration Insulin Glargine 15 units/ 0.15 mls @ 0 mls/hr 06/24/20 09:00 06/24/20 10:15 Miscellaneous Medication SC 0.15 mls QAM JULIÁN Administration Miscellaneous Medication 1 each 06/23/20 21:45 06/24/20 05:50 Electrolyte Replacement Protocol 1 Each IVPB 1 each PRN PRN Administration ELECTROLYTES Polyethylene Glycol 17 gm 06/24/20 09:00 06/24/20 12:48 Polyethylene Glycol 3350 17 Gm Packet PO Not Given DAILY JULIÁN PHYSICAL EXAMINATION: General Appearance: NAD, awake alert, ill appearing Eye: PERRL, anicteric sclera ENT: normocephalic atraumatic, no oropharyngeal lesions, moist mucosa Neck: supple, symmetric, no JVD, no thyromegaly, no lymphadenopathy, no carotid bruit Heart: RRR, no murmur, no gallops, no rubs, normal peripheral pulses Respiratory: CTAB, no wheezes, no rales, no ronchi, normal chest expansion, no tachypnea, normal percussion Gastrointestinal: soft, non-tender, non-distended, normal bowel sounds, no palpable masses, no hepatomegaly, no splenomegaly, no bruit Extremities: no cyanosis, no clubbing, no edema Skin: normal turgor Skin - other findings: 1cm ulcer L great toe w/ erythema to toe and foot Neurological: Mental status, the patient is alert and oriented to person, place, and time. Speech is clear. Cranial nerves 2 through 12 intact. Motor muscle tone is decreased in the lower extremity. Bulk is normal. Strength 3/5 in the upper extremity and 2/5 in the lower extremity. Cerebellar, finger-nose testing intact. Gait deferred due to the patient's safety. LABORATORY DATA: I reviewed the labs which are significant for white count of 19.5, hemoglobin of 12.7, hematocrit of 39.6, and mild hyponatremia at 135 and hyperglycemia at 287 glucose. Further testing included Radiology, which was essentially unremarkable. EKG showed sinus tachycardia. Laboratory Last Values WBC 19.5 thou/uL (4.8-10.8) H 06/23/20 15:07 RBC 4.51 mill/uL (4.70-6.10) L 06/23/20 15:07 Hgb 12.7 g/dL (14.0-18.0) L 06/23/20 15:07 Hct 39.6 % (42.0-52.0) L 06/23/20 15:07 MCV 87.8 fL (78.0-98.0) 06/23/20 15:07 MCH 28.1 pg (27.0-31.0) 06/23/20 15:07 MCHC 31.9 g/dL (32.0-36.0) L 06/23/20 15:07 RDW 12.9 % (11.5-14.5) 06/23/20 15:07 Plt Count 174 thou/uL (130-400) 06/23/20 15:07 MPV 9.3 fL (7.4-10.4) 06/23/20 15:07 Neutrophils % (Manual) 31 % (42-75) L 06/23/20 15:07 Band Neuts % (Manual) 62 % (5-11) H 06/23/20 15:07 Lymphocytes % (Manual) 3 % (21-51) L 06/23/20 15:07 Reactive Lymphs % 3 % (0-10) 06/23/20 15:07 Monocytes % (Manual) 1 % (0-10) 06/23/20 15:07 Lymphocytes # Not Reportable 06/23/20 15:07 Plt Morphology Comment Appears Adequate 06/23/20 15:07 Polychromasia SLIGHT = 2-3 cells (100X) (0-2/hpf) 06/23/20 15:07 Target Cells SLIGHT = 2-5 cells (100X) (0-1/hpf) 06/23/20 15:07 ESR Westergren 68 mm/hr (Less than 20) H 06/23/20 15:51 PT 15.1 sec (12.0-14.7) H 06/23/20 15:51 INR 1.2 06/23/20 15:51 APTT 30.9 sec (22.9-36.1) 06/23/20 15:51 Sodium 131 mmol/L (136-145) L 06/23/20 15:08 Potassium 4.1 mmol/L (3.5-5.1) 06/23/20 15:08 Chloride 93 mmol/L (98-107) L 06/23/20 15:08 Carbon Dioxide 19 mmol/L (22-29) L 06/23/20 15:08 Anion Gap 23 mmol/L (10-20) H 06/23/20 15:08 BUN 29 mg/dL (8.4-25.7) H 06/23/20 15:08 Creatinine 0.95 mg/dL (0.7-1.3) 06/23/20 15:08 Estimated GFR (MDRD) 81 06/23/20 15:08 Glucose 502 mg/dL (70-105) H 06/23/20 15:08 POC Glucose 452 mg/dL (70-100) H 06/23/20 15:19 Lactic Acid 1.5 mmol/L (0.5-2.2) 06/23/20 15:07 Calcium 8.9 mg/dL (7.8-10.44) 06/23/20 15:08 Total Bilirubin 1.0 mg/dL (0.2-1.2) 06/23/20 15:08 AST 22 U/L (5-34) 06/23/20 15:08 ALT 32 U/L (8-55) 06/23/20 15:08 Alkaline Phosphatase 239 U/L (40-110) H 06/23/20 15:08 Creatine Kinase 50 U/L (30-200) 06/23/20 15:08 CK-MB (CK-2) 0.8 ng/mL (0-6.6) 06/23/20 15:51 Troponin I 0.087 ng/mL (< 0.028) H 06/23/20 15:51 C-Reactive Protein 30.52 mg/dL (= or < 0.5) H 06/23/20 15:51 Serum Total Protein 6.3 g/dL (6.0-8.3) 06/23/20 15:08 Albumin 2.5 g/dL (3.5-5.0) L 06/23/20 15:08 Globulin 3.8 g/dL (2.4-3.5) H 06/23/20 15:08 Albumin/Globulin Ratio 0.7 g/dL (1.2-2.2) L 06/23/20 15:08 Urine Color Light-Yellow (Yellow) 06/23/20 16:15 Urine Clarity Clear (Clear) 06/23/20 16:15 Urine pH 5.0 (5.0-9.0) 06/23/20 16:15 Ur Specific Walls 1.027 (1.002-1.036) 06/23/20 16:15 Urine Protein 30 mg/dL (Neg-Trace) A 06/23/20 16:15 Urine Glucose (UA) Greater than 1000 mg/dL (Negative) A 06/23/20 16:15 Urine Ketones Greater than 150 mg/dL (Negative) A 06/23/20 16:15 Urine Blood 1+ (Negative) A 06/23/20 16:15 Urine Nitrite Negative (Negative) 06/23/20 16:15 Urine Bilirubin Negative (Negative) 06/23/20 16:15 Urine Urobilinogen Normal mg/dL (Less than 2) 06/23/20 16:15 Ur Leukocyte Esterase Negative Az/uL (Negative) 06/23/20 16:15 Urine RBC 4-6 HPF (0-3) A 06/23/20 16:15 Urine WBC 0-3 HPF (0-3) 06/23/20 16:15 Ur Squamous Epith Cells 0-3 HPF (0-3) 06/23/20 16:15 Urine Bacteria None Seen HPF (None Seen) 06/23/20 16:15 Hyaline Casts 4-6 LPF (0-3) A 06/23/20 16:15 Urine Mucus Rare LPF (<2+) 06/23/20 16:15 B-Hydroxybutyrate 7.17 mmol/L (0.02-0.27) H 06/23/20 15:07 Blood Type O POSITIVE 06/23/20 16:14 Antibody Screen NEGATIVE 06/23/20 15:51 Additional comment: Radiology CT Thoracic Spine WO Con Observe DT: FriJun 23, 2020 15:30 IMPRESSION: Degenerative changes without evidence of acute osseous abnormality of the thoracic spine. CT Brain WO Con Observe DT: FriJun 23, 2020 15:30 IMPRESSION: No acute intracranial abnormality. XR Foot Lt 3 View STANDARD Observe DT: FriJun 23, 2020 15:27 IMPRESSION: Prominent great toe soft tissue swelling. No acute fracture or subluxation demonstrated. XR Chest 1 View Portable Observe DT: FriJun 23, 2020 15:22 IMPRESSION: No acute cardiopulmonary process. CT Neck Soft Tissue W Con Observe DT: FriJun 23, 2020 16:49 IMPRESSION: No significant soft tissue abnormality of the neck. L spine CT: no acute fx MRI w/ contrast of CTL spine: rib fractures, no evidence of epidural abscess EKG 107 sinus tachycardia SC 150 QTc [address] changes, no AVB ASSESSMENT AND PLAN: Mr. Av Jett is a 59-year-old male, who presented via EMS because of lower back and neck pain and bilateral lower extremity via lower extremity weakness and pain in the first toe secondary to left first toe osteomyelitis and was admitted for sepsis. There was a concern about ascending flaccid paralysis, so he received one dose of IVIG empirically. MRI of the spine did not reveal any structural abnormalities or acute process. MRI of the brain reviewed which shows multiple embolic infarcts in the middle cerebral artery and anterior cerebral artery distribution, which may explain his symptoms. The patient was also tested positive for COVID. Discontinue IVIG. LP done. We will follow up on the results. ID has already been contacted regarding further recommendations. We will proceed with stroke workup including 2D echocardiogram. CTA of the head and neck did not reveal hemodynamically significant stenosis, and the chest x-ray did show bilateral pleural effusion. Continue medical treatment per primary team and ID. 2D echo pending to evaluate for cardioembolic source for stroke. Neuro checks every 4 hours. Telemetry to rule out arrhythmias. Permissive control of blood pressure at this time. Strict control of blood glucose. PT/speech. We will continue medical management per primary team and ID. We will continue to follow. Thank you for the consult. Plan discussed in detail with the patient. Job ID: [id number] [facility]
--- NOTE | 2020-06-24 17:48 | OP ---
DATE OF PROCEDURE: 06/24/2020 PREPROCEDURAL DIAGNOSIS: Diffuse neuromuscular deterioration with COVID-19 infection active as well as concerns over encephalitis/meningitis. PROCEDURE PERFORMED: Diagnostic lumbar puncture with manometry. [employer] CONSULTANT: DONTE Sosa FINDINGS: Approximately 3 mL of clear CSF fluid were removed in four separate containers labeled #1, #2, #3, and #4. Diagnostics will be ordered by Dr. Martinez. DRAINS: None. BLOOD LOSS: Negligible. ANESTHESIA: 1% Xylocaine. Skin wheal anesthesia in the midline. DESCRIPTION OF PROCEDURE: After informed consent was obtained, the patient was positioned appropriately in the right lateral decubitus position. The low back was then prepped and draped in usual sterile fashion. Landmarks were identified. The midline was identified, and anesthesia was then administered into the interlaminar space. A 22-gauge beveled-tip needle was then introduced into the interlaminar space, advanced slowly, encountering the ligamentum flavum clinically and advanced approximately another centimeter until a release was felt. The stylus was removed. We had immediate return of clear CSF fluid. Four specimen bottles were filled after obtaining manometry with an opening pressure of 24 cm of water. After the appropriate specimens were obtained, the needle was withdrawn. Again, this was a single try and did not require repetitive attempts. Sterile dressing was applied. The procedure was terminated without any complication. The patient tolerated well. He did complain of some neck pain and back pain upon removal of CSF fluid, but he tolerated this well, and upon recheck approximately an hour later, was still doing well. PLAN: 1. Empiric antibiotics to include meropenem and vancomycin per Dr. Martinez. 2. We will recheck the patient tomorrow. Plain radiographs will be obtained of the toe. Job ID: [id number]
[2020-06-24] MEDS: Atorvastatin Calcium 40 MG TAB PO SCH (19:54)
[2020-06-24] MEDS: Enoxaparin Sodium 40 MG/0.4 ML SYRINGE SC SCH (19:54)
[2020-06-24] MEDS: Penicillin G Potassium 4 MILL.UNITS in Sodium Chloride 0.9% 100 ML IVPB SCH (19:54)
[2020-06-24] MEDS ORDERED: OCTAGAM 10% 40 GM in Premix Bag 1 BAG IVPB SCH (20:00)
--- NOTE | 2020-06-24 21:09 | CON ---
DATE OF CONSULTATION: 06/24/2020 REQUESTING PHYSICIAN: Umair Martinez M.D. CONSULTING PHYSICIAN: Gt Caal MD REASON FOR CONSULTATION: Left great toe cellulitis and infection accompanying other constitutional symptoms which appeared to be neuromuscular in origin. Concerns for epidural abscess and other septic process. BRIEF CLINICAL HISTORY: Av is a 59-year-old male, who was in his usual state of high functioning health for his age until about a week and a half ago he started with little dysarthria according to his who accompanies him. Symptoms progressed to profound weakness subacutely and he has been unable to walk. Therefore, he was brought to [facility] where the Medicine team has admitted the patient for further workup and evaluation of what appears to be a very debilitating profound diffuse muscular weakness and dysarthria as well as stiffness in the neck and back. He has had fevers, chills, sweats, malaise, and weakness. His COVID test came back positive today while still in the ER. White blood cell count was 19.5 with a temperature of over 100 degrees. His left foot has had an ulcer on the plantar aspect. They have been treating this at home. It has not been seen by a physician. PHYSICAL EXAMINATION: Visual inspection of the patient demonstrates him to be supine in the hospital bed. He speaks and converses, but he does have profound dysarthria. He is difficult to understand. He cannot fully open his mouth or protrude the tongue in the midline. He does not have a deviating gaze or nystagmus. I see no fasciculations grossly. Motor strength both upper and lower extremities demonstrate profound weakness, but he has full range of motion but with 3/5 strength in all extremities. Bilateral resident medical officer strength is weakened also. Wolfe's is negative bilaterally. Again, no hyperreflexia is identified, but more of a flaccid weakness throughout both upper and lower extremities and centrally. He cannot rotate the neck back and forth, but he has provocative concordant pain with maneuvers of this . His Kernig's sign is strongly positive as well. Otherwise normal muscular build for a man of his age is noted, but again he has very poor muscle tone throughout. There is no limitation of range of motion. No spasticity identified. Grossly nonfocal on his cranial nerves and he converses appropriately and there was good cognition and global function appreciated. I see no nystagmus. The left toe does have an ulcer and it is circumferentially erythematous and appears to be infected. I do not know if it has osteomyelitis underlying this, but certainly circumferential swelling is appreciated with exfoliation around the cuticle and also limited range of motion with provocative discomfort. IMPRESSION: 1. Diffuse neuromuscular weakness with profound flaccidity in an otherwise healthy man. 2. Coronavirus disease 2019 positive. This may be the underlying issue, but he did have Streptococcus in both blood cultures. 3. Microvascular changes noted on brain MRI. PLAN: 1. The risks, benefits, options, alternatives, and rationale proceeding with a lumbar puncture for specimen and diagnostics has been explained in great detail with the patient and his and they are ready to proceed. All questions were answered. No guarantee of outcome has been stated or implied. 2. I have discussed the plan with Dr. Martinez and due to the patient being COVID negative, the lumbar puncture will be performed by myself on the floor and please see procedure note. Otherwise, the infected toe, we will treat with empiric antibiotics. Also, Dr. Fang will be consulted for evaluation. 3. For sake of thoroughness, we will go ahead and obtain radiographs of the great toe, but I have been concerned this has very little do with the patient's overall severe clinical condition and deterioration of neurological status. We will proceed with lumbar puncture for diagnostic purposes and treat the toe closed with antibiotics but I do not think that amputation at this point for 59-year-old male is in his best interest currently. We will recheck the patient tomorrow. Please see procedure note. Job ID: [id number]
[2020-06-24] MEDS: Clindamycin/D5W 900 MG in Premix Bag 1 BAG IVPB SCH (21:41)
[2020-06-24] MEDS: HumaLOG 300 UNITS/3 ML VIAL SC PRN (22:03)
[2020-06-24] MEDS: OCTAGAM 10% 40 GM in Premix Bag 1 BAG IVPB SCH (22:04)
--- NOTE | 2020-06-24 23:16 | CON ---
DATE OF CONSULTATION: 06/24/2020 REASON: COVID-19, leukocytosis, fever. HISTORY OF PRESENT ILLNESS: A 59-year-old whom I had seen many years ago when he had an episode of Staphylococcus aureus bacteremia. At that time, he was treated with protracted antimicrobial therapy, unfortunately the databases have been changed to ASYM III, and he had been admitted to [facility] at that time, so I do not have access to that information. I have not seen him in many years, and he presented yesterday to the hospital with a 1-week to 2-week history of progressively worsening fever, chills, general malaise, and myalgias, particularly in the back area and neck to the point that he is having difficulty in walking and staying upright. He denies any headaches. No visual symptoms, sore throat, odynophagia, or dysphagia. No dyspnea or cough. No abdominal pain. Voiding without difficulty. No diarrhea. Movement of his lower extremities elicits a lot of pain in the back area. He also has pain in the neck area and in the shoulders. He has been started on broad-spectrum antimicrobial coverage, and cultures are pending, actually some of the cultures resulted as noted below. PAST MEDICAL HISTORY: Includes type 2 diabetes, MSSA bacteremia many years ago, treated with protracted antimicrobial therapy. He has chronic heart murmur and apparently had diagnosed episode of endocarditis in the past, but that has to be confirmed. PAST SURGICAL HISTORY: Negative. SOCIAL HISTORY: He denies smoking. He is and is employed. ALLERGIES: NONE. CURRENT MEDICATION LIST: Includes, 1. Vitamin C. 2. Ecotrin. 3. Lipitor. 4. Had been on vancomycin, meropenem, and Rocephin, those antimicrobials have been discontinued and have been switched to clindamycin, penicillin. He is also on Decadron and has been started on immunoglobulin as well. 5. Insulin. 6. Labetalol. PHYSICAL EXAMINATION: VITAL SIGNS: Temperature 97.5, BP 130/70, heart rate 87, O2 sats 93, now 99, 2 L nasal cannula. SKIN: Normal. The patient has a peripheral IV access. No Castorena catheter. No lymphadenopathy. HEENT: Ocular movements conjugate. MUSCULOSKELETAL: Marked limitation of range of motion of neck, torso, lower back, and lower extremities due to pain elicited whenever he moves those segments. LUNGS: Clear to auscultation and percussion. HEART: S1, S2 with a very harsh, 3 to 4/6 murmur at the aortic area, possible diastolic murmur as well. ABDOMEN: Soft, not distended or tender. No ascites. No bladder distention. EXTREMITIES: No joint inflammatory activity. He has marked limitation of range of motion of lower extremity because it elicits pain in the lower back muscles. He has tenderness in the right sternoclavicular joint. There is marked limitation of range of motion of the neck. NEUROLOGIC: Cognitive function appears to be intact though. He recognized me from prior treatment. LABORATORY STUDIES: White cell count on arrival 19.5 and now 17.4, hemoglobin 12.7, platelets 174, 62% bands, now 22%. INR is 1.2. Chemistry with sodium 138, creatinine 0.65, and liver profile, alkaline phosphatase 239. Transaminases and bilirubin normal. Albumin 2.5. CRP 30. Troponin 0.087, globulin 3.8. Urinalysis, 0-3 wbcs'. Glucose greater than 1000, ketones greater than 150. The patient had spinal fluid taken out and it showed total nucleated cells of 40 with predominance of 2 segmented neutrophils. Glucose 115 and protein 33. SARS-CoV-2 detected. Beta-hydroxybutyrate 7.17. We have 2 sets of blood cultures, had Streptococcus pyogenes isolated by the time that I went to see the patient. He has had a brain MRI and MRI of the entire spine. Brain MRI showed numerous small and acute bilateral cerebral infarctions and watershed zones between middle cerebral artery, anterior cerebral artery territory, bilateral cerebellar acute infarctions as well. Lumbar, cervical, and thoracic spine MRI done did not show any evidence of diskitis or osteomyelitis. No epidural abscess either. Did have some rib fractures, they are old, that he sustained because of this current illness. He also has a toe ulcer in the left first toe bottom aspect. X-ray did not show any osteolytic lesions. The opening pressure was 240 mm of water of the CSF procedure. ASSESSMENT: 1. Type 2 diabetes, prior episode of MSSA bacteremia many years ago, possible endocarditis. Records are not available at this time. Treatment was carried out at [facility], but due to change in the EMR system, the previous records have not been made available. 2. New onset of fever, chills with group A strep bacteremia with likely myositis, which is diffuse, may be concentrated in the paraspinal musculature. There is also evidence of sternoclavicular joint involvement or at least sternoclavicular muscle on the right side. There is evidence of multiple areas of infarction in the brain, which could be embolic phenomena from likely endocarditis as the mechanism and pathophysiology, an intraabdominal inflammatory process is not apparent at this time, seems to be able to eliminate, no other joint inflammatory process is noted. At this point, we will switch him to clindamycin and penicillin G high doses and add gammaglobulin. Continue Decadron. With COVID-19, I think it is playing less of a role in his clinical presentation at this time, although it is uncertain what the duration of illness is. We will submit SARS-CoV-2 antibody profile to help determine duration of illness. Job ID: [id number] MTDD
[2020-06-25] MEDS: Penicillin G Potassium 4 MILL.UNITS in Sodium Chloride 0.9% 100 ML IVPB SCH ×6 (00:54→20:54)
[2020-06-25] MEDS: Sodium Chloride 0.9% 1,000 ML IV SCH ×3 (04:43→09:55)
[2020-06-25] MEDS: Clindamycin/D5W 900 MG in Premix Bag 1 BAG IVPB SCH ×3 (05:43→23:39)
[2020-06-25] MEDS: HumaLOG 300 UNITS/3 ML VIAL SC PRN ×2 (05:50→21:01)
[2020-06-25 06:06] LABS: #Monocytes 0.7 thou/uL (0.11-0.59); #Neutrophils 9.2 thou/uL (1.40-6.50); %Basophils 0.2 % (0.0-1.0); %Eosinophils 0.1 % (0.0-10.0); %Lymphocytes 9.3 % (21.0-51.0); %Monocytes 6.3 % (0.0-10.0); %Neutrophils 84.1 % (42.0-75.0); Hemoglobin 10.5 g/dL (14.0-18.0); Mean Corpuscular HGB CONC 32.2 g/dL (32.0-36.0); Mean Corpuscular Hemoglobin 28.5 pg (27.0-31.0); Mean Corpuscular Volume 88.6 fL (78.0-98.0); Mean Platelet Volume 9.5 fL (7.4-10.4); Platelet Count 167 thou/uL (130-400); RBC Distribution Width 13.2 % (11.5-14.5); Red Blood Cell (RBC) Count 3.69 mill/uL (4.70-6.10); White Blood Cell (WBC) Count 10.9 thou/uL (4.8-10.8)
[2020-06-25 06:11] LABS: Hemoglobin A1c 13.5 % (4.0-6.0)
[2020-06-25 06:26] LABS: Anion Gap 13 mmol/L (10-20); BUN (Urea Nitrogen) 28 mg/dL (8.4-25.7); Calc. Creatinine Clearance 127 mL/min (70-130); Calcium 8.5 mg/dL (7.8-10.44); Carbon Dioxide 19 mmol/L (22-29); Chloride 104 mmol/L (98-107); Glucose 413 mg/dL (70-105); Magnesium 1.7 mg/dL (1.6-2.6); Potassium 4.9 mmol/L (3.5-5.1); Sodium 131 mmol/L (136-145)
[2020-06-25 06:32] LABS: CRP (Inflammatory) 17.99 mg/dL (= or < 0.5); Cholesterol 92 mg/dl (< 200 Desired); HDL Cholesterol Less than 8 mg/dL (>60 Neg Risk); Triglycerides 114 mg/dL (Less than 150)
[2020-06-25] MEDS ORDERED: Magnesium 2 GM/50 ML 2 GM in Premix Bag 1 BAG IVPB SCH (06:45)
[2020-06-25] MEDS: Ascorbic Acid 500 mg Chewable Tablet PO SCH (07:52)
[2020-06-25] MEDS: Aspirin 81 mg Enteric Coated Tablet PO SCH (07:53)
[2020-06-25] MEDS: Dexamethasone 4 mg/ml Vial SLOW IVP SCH (07:53)
[2020-06-25] MEDS: Cholecalciferol (Vitamin D3) 400 UNITS TAB PO SCH (07:53)
[2020-06-25] MEDS: Famotidine 20 MG TAB PO SCH ×2 (07:54→20:53)
[2020-06-25] MEDS: Zinc Sulfate 220 MG CAP PO SCH (07:55)
[2020-06-25] MEDS: Polyethylene Glycol 3350 17 GM Packet PO SCH (07:55)
[2020-06-25] MEDS ORDERED: Lidocaine 5% Patch TD SCH (09:00)
[2020-06-25] MEDS: HYDROcodone/Acetaminophen 5/325 mg Tablet PO PRN (10:00)
[2020-06-25] MEDS: Insulin Glargine 30 UNITS in Pre-Filled Syringe 1 EACH SC SCH ×2 (10:00→20:54)
--- NOTE | 2020-06-25 10:50 | PDOC.HOSPP ---
- Subjective Subjective: Patient was seen examined at bedside. No acute events overnight. Patient stated she is feeling better. His strength is much better, he is able to raise his legs off the table, and also his upper extremity strength much improved. No fever. Appreciate input from other specialist. - Objective Vital Signs & Weight: Vital Signs (12 hours) Temp Pulse Resp BP Pulse Ox 06/25/20 10:00 97.7 F 95 17 138/69 95 06/25/20 08:15 97.7 F 96 17 142/75 H 94 L 06/25/20 06:00 98.3 F 98 18 133/84 96 06/25/20 03:31 97.4 F L 100 18 139/73 92 L 06/25/20 02:00 98.3 F 102 H 20 128/77 95 06/24/20 23:30 97.6 F 101 H 25 H 137/70 92 L Weight Admit Weight 199 lb 8.293 oz Weight 199 lb 8.293 oz I&O: 06/24/20 06/25/20 06/26/20 06:59 06:59 06:59 Intake Total 3380 Output Total 3075 Balance 305 Result Diagrams: 06/25/20 05:54 06/25/20 05:54 Additional Labs: Accuchecks 06/25/20 06/25/20 06/24/20 10:37 05:32 20:49 POC Glucose 356 H 367 H 380 H 06/24/20 17:08 POC Glucose 287 H Radiology Reviewed by me: Yes EKG Reviewed by me: Yes Hospitalist ROS - Medication Medications: Active Medications Generic Name Dose Route Start Last Admin Trade Name Freq PRN Reason Stop Dose Admin Hydrocodone Bitart/Acetaminophen 1 tab 06/23/20 21:09 06/25/20 10:00 Hydrocodone/Acetaminophen 5/325 Mg Tablet PO 1 tab Q4H PRN Administration Moderate Pain (4-6) Ascorbic Acid 1,000 mg 06/25/20 09:00 06/25/20 07:52 Ascorbic Acid 500 Mg Chewable Tablet PO 1,000 mg DAILY JULIÁN Administration Aspirin 81 mg 06/25/20 09:00 06/25/20 07:53 Aspirin 81 Mg Enteric Coated Tablet PO 81 mg DAILY JULIÁN Administration Atorvastatin Calcium 40 mg 06/24/20 21:00 06/24/20 19:54 Atorvastatin Calcium 40 Mg Tab PO 40 mg HS JULIÁN Administration Cholecalciferol 400 units 06/25/20 09:00 06/25/20 07:53 Cholecalciferol (Vitamin D3) 400 Units Tab PO 400 units DAILY JULIÁN Administration Dexamethasone 6 mg 06/25/20 09:00 06/25/20 07:53 Dexamethasone 4 Mg/Ml Vial SLOW IVP 6 mg DAILY JULIÁN Administration Enoxaparin Sodium 40 mg 06/24/20 21:00 06/24/20 19:54 Enoxaparin Sodium 40 Mg/0.4 Ml Syringe SC 40 mg 2100 JULIÁN Administration Famotidine 20 mg 06/24/20 09:00 06/25/20 07:54 Famotidine 20 Mg Tab PO 20 mg BID JULIÁN Administration Penicillin G Potassium 4 mill. 100 mls @ 200 mls/hr 06/24/20 21:00 06/25/20 10:00 units/ Sodium Chloride IVPB 100 mls Q4HR JULIÁN Administration Clindamycin Phosphate/Dextrose 50 mls @ 100 mls/hr 06/24/20 22:00 06/25/20 05:43 900 mg/ Device IVPB 50 mls Q8HR JULIÁN Administration Immune Globulin 40 gm/ Device 400 mls @ 0 mls/hr 06/24/20 22:00 06/24/20 22:04 IVPB 06/26/20 22:01 400 mls 2200 JULIÁN Administration As Directed Insulin Glargine 30 units/ 0.3 mls @ 0 mls/hr 06/25/20 09:00 06/25/20 10:00 Miscellaneous Medication SC 0.3 mls QAM JULIÁN Administration Sodium Chloride 1,000 mls @ 50 mls/hr 06/25/20 08:32 06/25/20 09:55 Normal Saline 0.9% IV Not Given .Q20H JULIÁN Insulin Human Lispro 0 units 06/24/20 09:00 06/25/20 05:50 Humalog 300 Units/3 Ml Vial SC 13 units .AGGRESSIVE SLIDING PRN Administration Aggressive Correctional Scale Insulin Human Lispro 0 units 06/24/20 21:34 06/24/20 22:03 Humalog 300 Units/3 Ml Vial SC 5 unit .BEDTIME SLIDING SC PRN Administration Bedtime Correctional Scale Lidocaine 2 patch 06/25/20 09:00 06/25/20 10:00 Lidocaine 5% Patch TD 06/25/20 21:00 2 patch DAILY JULIÁN Administration Miscellaneous Medication 1 each 06/23/20 21:45 06/24/20 05:50 Electrolyte Replacement Protocol 1 Each IVPB 1 each PRN PRN Administration ELECTROLYTES Polyethylene Glycol 17 gm 06/24/20 09:00 06/25/20 07:55 Polyethylene Glycol 3350 17 Gm Packet PO 17 gm DAILY JULIÁN Administration Zinc Sulfate 220 mg 06/25/20 09:00 06/25/20 07:55 Zinc Sulfate 220 Mg Cap PO 220 mg DAILY JULIÁN Administration Hospitalist Exam Vitals: Vital Signs (12 hours) Temp Pulse Resp BP Pulse Ox 06/25/20 10:00 97.7 F 95 17 138/69 95 06/25/20 08:15 97.7 F 96 17 142/75 H 94 L 06/25/20 06:00 98.3 F 98 18 133/84 96 06/25/20 03:31 97.4 F L 100 18 139/73 92 L 06/25/20 02:00 98.3 F 102 H 20 128/77 95 06/24/20 23:30 97.6 F 101 H 25 H 137/70 92 L Weight Admit Weight 199 lb 8.293 oz Weight 199 lb 8.293 oz General Appearance: NAD Eye: PERRL ENT: normocephalic atraumatic Neck: supple Heart: RRR Respiratory: CTAB Gastrointestinal: soft Extremities: no cyanosis Skin: normal turgor Neurological - other findings: Bilateral lower extremity weakness, 3/5 in strength Musculoskeletal: normal tone, generalized weakness Psychiatric: normal affect, normal behavior, A&O x 3 Hosp A/P - Plan Patient is a pleasant 59 years old gentleman who has significant past medical history of diabetes, who presented to ED with complaining of back and neck pain after status post fall about 5 days ago. He had problem with ambula tion, and weakness over the past week. Acute CVA - concerned for septic emboli vs other etiology --cont tele monitor for arrhythmias - no evidence of arrhythmias so far --CTA reviewed - no significant stenosis. Echo pending. Cont PT/OT/SP --Continue neurochecks. Neurology consult. --Cont ASA/Statin. tight glycemic control Sepsis, POA, likely secondary to left great toe osteomyelitis --Abx changed to Pen G and Clinda. Appreciate ID input Strep bacterememia --check 2 Echo, may need ROBB --ID consult, mgt as above Left great toe osteomyelitis --Continue IV antibiotic as above. Ortho consult appreciated Acute hypoxic respiratory failure secondary to Covid 19 infection - unclear onset of symptoms, but weakness started about a week ago --cont Decadron, continue O2 supplement. Vitamin C/D/zinc. --s/p convalescent plasma. --cont Lovenox for DVT ppx Uncontrolled diabetes with DKA --Anion gap closed. Transition to subcu insulin. Monitor blood glucose closely as patient is on Decadron. --A1C 13. Adjust basal insulin, add prandial insulin, cont ISS Generalized weakness - much improved. may have component of myositis --Initially there was concern for possible Guillain-Tyson syndrome given the fact that patient had history of EBV infection few months ago. --However, his MRI came back confirmed patient has CVA. Patient had a LP done, will follow culture and CSF analysis --Cont neurocheck. --PT jos
[2020-06-25] MEDS: HumaLOG 300 UNITS/3 ML VIAL SC SCH ×2 (12:11→16:55)
[2020-06-25 15:37] LABS: SARS-CoV-2 IgG Ab Reactive (NonReactive); SARS-CoV-2 IgG Index 1.86 S/CO (< 1.40)
--- NOTE | 2020-06-25 17:55 | PRG ---
DATE OF SERVICE: 06/25/2020 SUBJECTIVE: Av is a 59-year-old male we were consulted on yesterday for evaluation of great toe ulcer on the left. Radiographs did not demonstrate any osteomyelitis. Dr. Fang has also been consulted and was noted. CSF studies were essentially positive for neutrophils, but otherwise did not demonstrate a bacterial encephalitis. Cultures are pending. OBJECTIVE: GENERAL: He is responsive. He still has dysarthria, but overall he since I saw him yesterday. VITAL SIGNS: Temperature 97.2, pulse 97, respiratory rate 14, O2 saturation is 95% on 2 L nasal cannula, blood pressure 144/71. NEUROLOGIC: He is alert, responsive, and appropriate examiner and still has dysarthria, profound weakness in all four extremities. IMPRESSION: 1. This is a 59-year-old male with profound weakness, etiology unclear at this time. 2. Ulcer cellulitis, left great toe but with negative x-ray for osteomyelitis. PLAN: Continue current care. Continue to follow. We will recheck on the patient tomorrow. Job ID: [id number]
[2020-06-25] MEDS: Atorvastatin Calcium 40 MG TAB PO SCH (20:52)
[2020-06-25] MEDS: Enoxaparin Sodium 40 MG/0.4 ML SYRINGE SC SCH (20:53)
[2020-06-25] MEDS ORDERED: Transdermal Patch Removal TOP SCH (21:00)
[2020-06-25] MEDS: OCTAGAM 10% 40 GM in Premix Bag 1 BAG IVPB SCH (22:16)
[2020-06-26] MEDS: Penicillin G Potassium 4 MILL.UNITS in Sodium Chloride 0.9% 100 ML IVPB SCH ×6 (01:32→20:52)
[2020-06-26] MEDS: Sodium Chloride 0.9% 1,000 ML IV SCH (04:14)
[2020-06-26] MEDS: HumaLOG 300 UNITS/3 ML VIAL SC PRN ×2 (05:00→21:14)
[2020-06-26] MEDS: HYDROcodone/Acetaminophen 5/325 mg Tablet PO PRN ×2 (05:07→08:16)
[2020-06-26 05:16] LABS: #Monocytes 0.7 thou/uL (0.11-0.59); #Neutrophils 9.6 thou/uL (1.40-6.50); %Basophils 0.1 % (0.0-1.0); %Eosinophils 0.3 % (0.0-10.0); %Lymphocytes 9.2 % (21.0-51.0); %Monocytes 5.8 % (0.0-10.0); %Neutrophils 84.6 % (42.0-75.0); Hemoglobin 10.8 g/dL (14.0-18.0); Mean Corpuscular HGB CONC 31.2 g/dL (32.0-36.0); Mean Corpuscular Hemoglobin 27.6 pg (27.0-31.0); Mean Corpuscular Volume 88.5 fL (78.0-98.0); Mean Platelet Volume 9.6 fL (7.4-10.4); Platelet Count 173 thou/uL (130-400); RBC Distribution Width 13.2 % (11.5-14.5); Red Blood Cell (RBC) Count 3.93 mill/uL (4.70-6.10); White Blood Cell (WBC) Count 11.3 thou/uL (4.8-10.8)
[2020-06-26 05:27] LABS: ALT (SGPT) 20 U/L (8-55); AST (SGOT) 18 U/L (5-34); Albumin 1.9 g/dL (3.5-5.0); Alkaline Phosphatase 132 U/L (40-110); Anion Gap 9 mmol/L (10-20); BUN (Urea Nitrogen) 22 mg/dL (8.4-25.7); Bilirubin, Total 0.7 mg/dL (0.2-1.2); Calc. Creatinine Clearance 127 mL/min (70-130); Calcium 8.4 mg/dL (7.8-10.44); Carbon Dioxide 26 mmol/L (22-29); Chloride 102 mmol/L (98-107); Globulin 5.6 g/dL (2.4-3.5); Glucose 392 mg/dL (70-105); Magnesium 1.8 mg/dL (1.6-2.6); Potassium 4.3 mmol/L (3.5-5.1); Protein, Total 7.5 g/dL (6.0-8.3); Sodium 133 mmol/L (136-145)
[2020-06-26] MEDS ORDERED: Magnesium 2 GM/50 ML 2 GM in Premix Bag 1 BAG IVPB SCH (06:00)
[2020-06-26] MEDS: Clindamycin/D5W 900 MG in Premix Bag 1 BAG IVPB SCH ×3 (06:06→22:08)
[2020-06-26] MEDS: HumaLOG 300 UNITS/3 ML VIAL SC SCH ×4 (07:56→18:09)
[2020-06-26] MEDS: Ascorbic Acid 500 mg Chewable Tablet PO SCH (07:57)
[2020-06-26] MEDS: Cholecalciferol (Vitamin D3) 400 UNITS TAB PO SCH (07:58)
[2020-06-26] MEDS: Aspirin 81 mg Enteric Coated Tablet PO SCH (07:58)
[2020-06-26] MEDS: Dexamethasone 4 mg/ml Vial SLOW IVP SCH (07:58)
[2020-06-26] MEDS: Famotidine 20 MG TAB PO SCH ×2 (08:00→20:01)
[2020-06-26] MEDS: Insulin Glargine 30 UNITS in Pre-Filled Syringe 1 EACH SC SCH ×3 (08:01→22:00)
[2020-06-26] MEDS: Polyethylene Glycol 3350 17 GM Packet PO SCH ×2 (08:05→08:58)
[2020-06-26] MEDS: Zinc Sulfate 220 MG CAP PO SCH (08:16)
[2020-06-26 08:36] LABS: Base Excess-Venous -4.5 mmol/L (-2.0 to 3.0); Bicarbonate (HCO3v) 21.1 mmol/L (22.0-28.0); Chloride 96 mmol/L (98-107); Hemoglobin - Calc 12.6 g/dL (14.0-18.0); Sodium 130 mmol/L (138-145); T. Carbon Dioxide 22.3 mmol/L (22.0-28.0); vO2 Saturation-calc 86.2 % (60.0-85.0)
[2020-06-26 08:37] LABS: Calcium, Ionized 1.24 mmol/L (1.15-1.33)
--- NOTE | 2020-06-26 11:18 | CON ---
DATE OF CONSULTATION: HISTORY OF PRESENT ILLNESS: Av Jett is a 59-year-old male patient, knew he had diabetes, but had been trying to treat it on his own. He is admitted without any medications. Apparently, he took a fall, tripped over some exercise equipment and has been able to walk since that time. During this hospitalization, he has been admitted 06/23/2020, had MRI of the brain, CT scan of the brain, CT scan and MRIs of the cervical and thoracolumbar spine without evident findings. CT [place] [facility] [place] [facility]io was unremarkable. Spinal tap has been performed. Dr. Fang is seeing the patient. Neurosurgery, Dr. Owens and STEPHEN Montesinos are seeing the patient. Etiologies weakness that is uncertain to point. No neurosurgical intervention was noted. Dr. Fang saw the patient and with his group A strep bacteremia, fever, chills, myositis with concern about paraspinal musculature problem. Rapid COVID test PCR is positive 06/24/2020, probably playing a less of a role in this process. I have been asked to see him regarding his left great toe. He has an ulceration. X-rays do not reveal osteomyelitis, but he has an ulcer with tracking into the joint of the phalanx. Recommendation would be amputation of left great toe with wound VAC application. We will plan that today. ALLERGIES: NONE. SOCIAL HISTORY: Tobacco: None. Alcohol: Rarely. MEDICATIONS: None on admission. Antibiotics in diabetes control medications currently. PAST SURGICAL HISTORY: Noncontributory. PAST MEDICAL HISTORY: Diabetes, weakness, bacteremia as noted above. REVIEW OF SYSTEMS: Noncontributory. FAMILY HISTORY: Noncontributory. PHYSICAL EXAMINATION: VITAL SIGNS: 6 feet, 199 pounds, 27 BMI. 97.5, 23, 150/88. LUNGS: Clear to auscultation. CARDIAC: Regular rate and rhythm without murmur or gallop. ABDOMEN: Soft. EXTREMITIES: Palpable pedal pulses. Ulceration, plantar neuropathic. Left great toe reveals an ulceration extending down to the phalanx. LABORATORY DATA: White count 11, hemoglobin 10.8. Hemoglobin A1c 13, 133 sodium, potassium 4.3, BUN 22, creatinine 0.79. ASSESSMENT AND PLAN: 1. Neuropathic ulcer left great toe from poorly controlled diabetes. We would recommend amputation of the left great toe, healing by second intention with a wound VAC. He does have palpable pulses without evidence of pedal edema. 2. Generalized weakness. Workup per Medical and Dr. Fang. 3. Complete MRI, CAT scan brain and cervical thoracic lumbar spine performed without evident etiology of his weakness. 4. Noncompliant diabetes. Job ID: [id number]
--- NOTE | 2020-06-26 11:34 | CT ---
CT ANGIOGRAM NECK WITH CONTRAST CT ANGIOGRAM BRAIN WITH AND WITHOUT CONTRAST: DATE: 06/24/2020 HISTORY: 59-year-old male with acute watershed infarctions TECHNIQUE: After IV contrast injection, arterial bolus chasing technique scan performed from AP window to vertex of head. Coronal and sagittal 3-D MIP reconstructions. FINDINGS: No high-grade calcified atheromatous plaque visualized in any artery. Noncalcified mild plaque causing mild stenoses at origins of bilateral vertebral arteries. Otherwise, the rest of the bilateral vertebral, brachiocephalic, bilateral subclavian, bilateral comm on carotid, bilateral internal carotid, arteries, are normal. Minimal calcified plaque at bilateral carotid siphons without stenosis. The M1 and M2 segments of the bilateral MCAs, A1 and A2 segments of bilateral ACAs, basilar, bilatera l end polisher, arteries, are normal. Bilateral PICAs and AICAs are patent. Bilateral pleural effusions almost reached the apices. Nonspecific hazy groundglass densities in bilateral upper lobes. Small focal consolidations in upper lobes medially, left greater than right. Bridging osteophytes protruding the prevertebral space throughout almost the entire cervical spine. No dural venous sinus thrombosis. IMPRESSION: 1) please note that watershed infarctions are in general, due to drops in systemic blood pressure. 2) mild stenoses at origins of bilateral vertebral arteries. 3) Otherwise Essentially normal major arteries of head and neck 4) bilateral pleural effusions and nonspecific infiltrates at bilateral lung apices. 5.) DISH (diffuse idiopathic skeletal hyperostosis). Transcribed Date/Time: 06/26/2020 11:34 AM
[2020-06-26] MEDS ORDERED: Midazolam HCl 2 mg/2 ml Vial ONE (14:19)
[2020-06-26] MEDS ORDERED: Fentanyl 100 MCG/2 ML VIAL ONE (14:19)
[2020-06-26] MEDS ORDERED: PROPOFOL 40 ML ONE (14:20)
[2020-06-26] MEDS ORDERED: traMADol HCl 50 MG TAB PO PRN (14:52)
[2020-06-26] MEDS ORDERED: Naloxone HCl 0.4 mg/ml Vial ONE (15:48)
[2020-06-26] MEDS ORDERED: Ondansetron HCl/PF 4 MG/2 ML Vial IVP PRN (15:51)
[2020-06-26] MEDS ORDERED: Promethazine HCl 25 MG/ML VIAL IM PRN (15:51)
[2020-06-26] MEDS ORDERED: Promethazine HCl 25 MG/ML VIAL SLOW IVP PRN (15:51)
--- NOTE | 2020-06-26 15:57 | PDOC.HOSPP ---
- Subjective Subjective: Patient was seen examined at bedside. No acute events overnight. Patient complained of back pain. Patient was seen by splinter surgery today. Recommend toe amputation. No fever. Patient remained in normal sinus rhythm. Blood culture positive for strep biology. He is currently is on clindamycin and penicillin G. ID is following. I have updated his on the phone. - Objective Vital Signs & Weight: Vital Signs (12 hours) Temp Pulse Resp BP Pulse Ox 06/26/20 14:20 97.5 F L 85 20 125/73 96 06/26/20 12:00 97.6 F 85 20 123/73 95 06/26/20 09:57 91 19 150/88 H 95 06/26/20 08:05 94 L 06/26/20 08:00 97.5 F L 97 23 H 149/79 H 94 L 06/26/20 06:48 94 L 06/26/20 05:48 98.7 F 96 22 H 150/88 H 94 L 06/26/20 04:00 98.5 F 95 20 145/81 H 94 L Weight Admit Weight 199 lb 8.293 oz Weight 199 lb 8.293 oz I&O: 06/25/20 06/26/20 06/27/20 06:59 06:59 06:59 Intake Total 3380 3320 0 Output Total 3071 3797 680 Balance 227 -311 -245 Result Diagrams: 06/26/20 04:53 06/26/20 04:53 Additional Labs: Accuchecks 06/26/20 06/26/20 06/25/20 12:17 04:52 20:58 POC Glucose 264 H 299 H 379 H 06/25/20 16:50 POC Glucose 355 H Radiology Reviewed by me: Yes EKG Reviewed by me: Yes Hospitalist ROS - Medication Medications: Active Medications Generic Name Dose Route Start Last Admin Trade Name Freq PRN Reason Stop Dose Admin Hydrocodone Bitart/Acetaminophen 1 tab 06/23/20 21:09 06/26/20 08:16 Hydrocodone/Acetaminophen 5/325 Mg Tablet PO 1 tab Q4H PRN Administration Moderate Pain (4-6) Ascorbic Acid 1,000 mg 06/25/20 09:00 06/26/20 07:57 Ascorbic Acid 500 Mg Chewable Tablet PO 1,000 mg DAILY JULIÁN Administration Aspirin 81 mg 06/25/20 09:00 06/26/20 07:58 Aspirin 81 Mg Enteric Coated Tablet PO 81 mg DAILY JULIÁN Administration Atorvastatin Calcium 40 mg 06/24/20 21:00 06/25/20 20:52 Atorvastatin Calcium 40 Mg Tab PO 40 mg HS JULIÁN Administration Cholecalciferol 400 units 06/25/20 09:00 06/26/20 07:58 Cholecalciferol (Vitamin D3) 400 Units Tab PO 400 units DAILY JULIÁN Administration Dexamethasone 6 mg 06/25/20 09:00 06/26/20 07:58 Dexamethasone 4 Mg/Ml Vial SLOW IVP 6 mg DAILY JULIÁN Administration Enoxaparin Sodium 40 mg 06/24/20 21:00 06/25/20 20:53 Enoxaparin Sodium 40 Mg/0.4 Ml Syringe SC 40 mg 2100 JULIÁN Administration Famotidine 20 mg 06/24/20 09:00 06/26/20 08:00 Famotidine 20 Mg Tab PO 20 mg BID JULIÁN Administration Penicillin G Potassium 4 mill. 100 mls @ 200 mls/hr 06/24/20 21:00 06/26/20 13:26 units/ Sodium Chloride IVPB 100 mls Q4HR JULIÁN Administration Clindamycin Phosphate/Dextrose 50 mls @ 100 mls/hr 06/24/20 22:00 06/26/20 14:10 900 mg/ Device IVPB 50 mls Q8HR JULIÁN Administration Insulin Glargine 30 units/ 0.3 mls @ 0 mls/hr 06/25/20 21:00 06/25/20 20:54 Miscellaneous Medication SC 0.3 mls HS JULIÁN Administration Insulin Glargine 30 units/ 0.3 mls @ 0 mls/hr 06/25/20 09:00 06/26/20 08:58 Miscellaneous Medication SC Not [facility] [place] Sodium Chloride 1,000 mls @ 50 mls/hr 06/25/20 08:32 06/26/20 04:14 Normal Saline 0.9% IV Not Given .Q20H JULIÁN Insulin Human Lispro 0 units 06/24/20 09:00 06/26/20 05:00 Humalog 300 Units/3 Ml Vial SC 9 units .AGGRESSIVE SLIDING PRN Administration Aggressive Correctional Scale Insulin Human Lispro 0 units 06/24/20 21:34 06/25/20 21:01 Humalog 300 Units/3 Ml Vial SC 5 unit .BEDTIME SLIDING SC PRN Administration Bedtime Correctional Scale Insulin Human Lispro 8 units 06/25/20 12:00 06/26/20 11:10 Humalog 300 Units/3 Ml Vial SC Not Given TID-WM JULIÁN Miscellaneous Medication 1 each 06/23/20 21:45 06/24/20 05:50 Electrolyte Replacement Protocol 1 Each IVPB 1 each PRN PRN Administration ELECTROLYTES Polyethylene Glycol 17 gm 06/24/20 09:00 06/26/20 08:58 Polyethylene Glycol 3350 17 Gm Packet PO Not Given DAILY JULIÁN Zinc Sulfate 220 mg 06/25/20 09:00 06/26/20 08:16 Zinc Sulfate 220 Mg Cap PO 220 mg DAILY JULIÁN Administration Hospitalist Exam Vitals: Vital Signs (12 hours) Temp Pulse Resp BP Pulse Ox 06/26/20 14:20 97.5 F L 85 20 125/73 96 06/26/20 12:00 97.6 F 85 20 123/73 95 06/26/20 09:57 91 19 150/88 H 95 06/26/20 08:05 94 L 06/26/20 08:00 97.5 F L 97 23 H 149/79 H 94 L 06/26/20 06:48 94 L 06/26/20 05:48 98.7 F 96 22 H 150/88 H 94 L 06/26/20 04:00 98.5 F 95 20 145/81 H 94 L Weight Admit Weight 199 lb 8.293 oz Weight 199 lb 8.293 oz General Appearance: NAD, awake alert Eye: PERRL ENT: normocephalic atraumatic Neck: supple Heart: RRR Respiratory: CTAB Gastrointestinal: soft Extremities: no cyanosis Skin: normal turgor Neurological: cranial nerve grossly intact Psychiatric: normal affect, normal behavior, A&O x 3 Hosp A/P - Plan Patient is a pleasant 59 years old gentleman who has significant past medical history of diabetes, who presented to ED with complaining of back and neck pain after status post fall about 5 days ago. He had problem with ambulation, and weakness over the past week. Acute CVA - concerned for septic emboli vs other etiology --cont tele monitor for arrhythmias - no evidence of arrhythmias so far --CTA reviewed - no significant stenosis. Echo pending. Cont PT/OT/SP --Continue neurochecks. Neurology consult. --Cont ASA/Statin. tight glycemic control Sepsis, POA, likely secondary to left great toe osteomyelitis --Abx changed to Pen G and Clinda. Appreciate ID input Strep bacterememia --check 2 Echo, may need ROBB --ID consult, mgt as above --rpt cultures in AM Left great toe osteomyelitis --Continue IV antibiotic as above. Ortho consult appreciated --plan for amputation this pm. Acute hypoxic respiratory failure secondary to Covid 19 infection - unclear onset of symptoms, but weakness started about a week ago --cont Decadron, continue O2 supplement. Vitamin C/D/zinc. --s/p convalescent plasma. --cont Lovenox for DVT ppx Uncontrolled diabetes with DKA --Anion gap closed. Transition to subcu insulin. Monitor blood glucose closely as patient is on Decadron. --A1C 13. Adjust basal insulin, add prandial insulin, cont ISS Generalized weakness - much improved. may have component of myositis --Initially there was concern for possible Guillain-Tyson syndrome given the fact that patient had history of EBV infection few months ago. --However, his MRI came back confirmed patient has CVA. Patient had a LP done, CSF analysis - elevated nutrophils but no WBC. Culture so far no growth --Cont neurocheck. --PT eval
[2020-06-26] MEDS ORDERED: Naloxone HCl 0.4 mg/ml Vial IV SCH (16:00)
[2020-06-26 16:22] LABS: Base Excess (BEa) 2.3 mEq/L (-2.0 to +3.0); Calcium, Ionized (arterial) 1.29 mmol/L (1.12-1.30); Carboxyhemoglobin (COHb) 1.1 gm% (0.0-3.0); Hemoglobin (Hb) 11.9 g/dL (14.0-18.0); O2 Tension (PaO2), arterial 91.3 mmHg (> 80.0); Potassium - ABG Lab 4.83 mmol/L (3.70-5.30)
[2020-06-26 16:24] LABS: CO2 Tension 62.2 mmHg (35.0-45.0)
[2020-06-26 16:25] LABS: Puncture Site RRA
--- NOTE | 2020-06-26 17:56 | PRG ---
DATE OF SERVICE: 06/26/2020 SUBJECTIVE: The patient had toe amputation, developed some respiratory difficulty, most likely due to opioids reverse with Narcan, still in PACU, but getting better. OBJECTIVE: VITAL SIGNS: Saturating 96% on nasal cannula, he has been afebrile, and blood pressure 120/73. LUNGS: Clear. HEART: S1 and S2, regular rate. ABDOMEN: Soft. EXTREMITIES: Toe is dressed. LABORATORY DATA: White cell count is 11.3, bands are down, and hemoglobin 10.8. Creatinine is holding at 0.79. Group A strep is present in the hand abscess in 2 sets of blood cultures. ASSESSMENT AND DISCUSSION: Type 2 diabetes and group A strep invasive infection with bacteremia, likely myositis, and abscess in the right hand. His toe has been amputated. He also probably has sternoclavicular joint involvement on the right side. We may have to re-image him depending on the persistence of areas of localized pain. Go ahead and I discontinue Decadron. Job ID: [id number] [facility]
[2020-06-26 18:13] LABS: VDRL, CSF Non Reactive (Non Rea:<1:1)
[2020-06-26] MEDS: Enoxaparin Sodium 40 MG/0.4 ML SYRINGE SC SCH (20:01)
[2020-06-26] MEDS: Atorvastatin Calcium 40 MG TAB PO SCH (20:01)
[2020-06-27] MEDS: Penicillin G Potassium 4 MILL.UNITS in Sodium Chloride 0.9% 100 ML IVPB SCH ×7 (00:05→23:58)
[2020-06-27] MEDS: Sodium Chloride 0.9% 1,000 ML IV SCH ×2 (00:56→22:06)
[2020-06-27] MEDS: HYDROcodone/Acetaminophen 5/325 mg Tablet PO PRN (03:57)
[2020-06-27 05:14] LABS: #Eosinphils 0.1 thou/uL (0.0-0.7); #Lymphocytes 1.2 thou/uL (1.20-3.40); #Monocytes 0.6 thou/uL (0.11-0.59); #Neutrophils 8.4 thou/uL (1.40-6.50); %Basophils 0.2 % (0.0-1.0); %Eosinophils 0.6 % (0.0-10.0); %Lymphocytes 11.2 % (21.0-51.0); Hemoglobin 11.3 g/dL (14.0-18.0); Mean Corpuscular HGB CONC 31.3 g/dL (32.0-36.0); Mean Corpuscular Hemoglobin 27.9 pg (27.0-31.0); Mean Corpuscular Volume 89.1 fL (78.0-98.0); Mean Platelet Volume 9.8 fL (7.4-10.4); Platelet Count 173 thou/uL (130-400); RBC Distribution Width 13.2 % (11.5-14.5); Red Blood Cell (RBC) Count 4.06 mill/uL (4.70-6.10); White Blood Cell (WBC) Count 10.2 thou/uL (4.8-10.8)
[2020-06-27] MEDS: Clindamycin/D5W 900 MG in Premix Bag 1 BAG IVPB SCH ×3 (05:30→21:01)
[2020-06-27] MEDS: HumaLOG 300 UNITS/3 ML VIAL SC PRN (05:32)
[2020-06-27 08:38] LABS: Myelin Basic Protein, CSF 2.9 ng/mL (0.0-4.7)
--- NOTE | 2020-06-27 08:42 | OP ---
DATE OF PROCEDURE: 06/26/2020 PREOPERATIVE DIAGNOSES: Diabetic infection, left great toe; neuropathic plantar ulcer; osteomyelitis; COVID illness. POSTOPERATIVE DIAGNOSES: Diabetic infection, left great toe; neuropathic plantar ulcer; osteomyelitis; COVID illness. PROCEDURES PERFORMED: Amputation of left great toe through the proximal phalanx, wound left open for healing by secondary intention. Wound Care placed a wound VAC intraop. INDICATIONS: 59-year-old male, noncompliant, diabetic, admitted, found to be COVID positive with diffuse weakness, undergoing CAT scan. MRI scan of brain, cervical, thoracic, lumbar spine is noted to be negative, awaiting further evaluation. Has a neuropathic ulcer of left plantar toe tracking into the phalanx. Note; good bleeding, palpable pedal pulses. DESCRIPTION OF PROCEDURE: The patient was taken to the operating room, where under intravenous sedation, left foot was prepared with Betadine and draped in routine fashion. Left great toe amputated through the proximal phalanx, resecting the phalanx proximally with rongeurs after cutting with bone cutters. Good hemostasis noted. Good bleeding occurred in the soft tissue. Connective tissue debrided. Wound Care Team arrived to place a wound VAC. Patient tolerated the procedure well. Job ID: [id number]
[2020-06-27] MEDS: Insulin Glargine 30 UNITS in Pre-Filled Syringe 1 EACH SC SCH ×2 (09:04→22:15)
[2020-06-27] MEDS: Cholecalciferol (Vitamin D3) 400 UNITS TAB PO SCH (09:05)
[2020-06-27] MEDS: Ascorbic Acid 500 mg Chewable Tablet PO SCH (09:05)
[2020-06-27] MEDS: HumaLOG 300 UNITS/3 ML VIAL SC SCH ×3 (09:05→16:55)
[2020-06-27] MEDS: Polyethylene Glycol 3350 17 GM Packet PO SCH (09:05)
[2020-06-27] MEDS: Famotidine 20 MG TAB PO SCH ×2 (09:06→20:07)
[2020-06-27] MEDS: Zinc Sulfate 220 MG CAP PO SCH (09:06)
[2020-06-27] MEDS: Aspirin 81 mg Enteric Coated Tablet PO SCH (09:06)
--- NOTE | 2020-06-27 14:46 | PDOC.HOSPP ---
- Subjective Subjective: Patient was seen examined at bedside. Patient appeared to be slightly more lethargic today. He remained comfortable on 4 L via nasal cannula. Blood pressure stable. Patient underwent left toe amputation yesterday. Patient tolerated procedure well. His leukocytosis resolved. Patient had no fever. - Objective Vital Signs & Weight: Vital Signs (12 hours) Temp Pulse Resp BP BP BP BP 06/27/20 11:00 97.6 F 88 16 147/82 H 06/27/20 10:14 150/86 H 147/82 H 06/27/20 09:15 97.6 F 89 16 145/77 H 06/27/20 08:13 06/27/20 06:00 98.2 F 90 18 144/85 H 06/27/20 04:00 98.0 F 89 18 147/85 H Pulse Ox Pulse Ox Pulse Ox 06/27/20 11:00 96 06/27/20 10:14 91 L 94 L 06/27/20 09:15 94 L 06/27/20 08:13 95 06/27/20 06:00 92 L 06/27/20 04:00 93 L Weight Admit Weight 199 lb 8.293 oz Weight 199 lb 8.293 oz I&O: 06/26/20 06/27/20 06/28/20 06:59 06:59 06:59 Intake Total 3320 180 113 Output Total 3597 1475 Balance -277 -1295 113 Result Diagrams: 06/27/20 04:35 06/26/20 04:53 Additional Labs: Accuchecks 06/27/20 06/27/20 06/26/20 11:21 05:29 21:12 POC Glucose 109 H 200 H 274 H 06/26/20 20:54 POC Glucose 273 H Radiology Reviewed by me: Yes EKG Reviewed by me: Yes Hospitalist ROS - Medication Medications: Active Medications Generic Name Dose Route Start Last Admin Trade Name Freq PRN Reason Stop Dose Admin Hydrocodone Bitart/Acetaminophen 1 tab 06/23/20 21:09 06/27/20 03:57 Hydrocodone/Acetaminophen 5/325 Mg Tablet PO 1 tab Q4H PRN Administration Moderate Pain (4-6) Ascorbic Acid 1,000 mg 06/25/20 09:00 06/27/20 09:05 Ascorbic Acid 500 Mg Chewable Tablet PO 1,000 mg DAILY JULIÁN Administration Aspirin 81 mg 06/25/20 09:00 06/27/20 09:06 Aspirin 81 Mg Enteric Coated Tablet PO 81 mg DAILY JULIÁN Administration Atorvastatin Calcium 40 mg 06/24/20 21:00 06/26/20 20:01 Atorvastatin Calcium 40 Mg Tab PO 40 mg HS JULIÁN Administration Cholecalciferol 400 units 06/25/20 09:00 06/27/20 09:05 Cholecalciferol (Vitamin D3) 400 Units Tab PO 400 units DAILY JULIÁN Administration Enoxaparin Sodium 40 mg 06/24/20 21:00 06/26/20 20:01 Enoxaparin Sodium 40 Mg/0.4 Ml Syringe SC 40 mg 2100 JULIÁN Administration Famotidine 20 mg 06/24/20 09:00 06/27/20 09:06 Famotidine 20 Mg Tab PO 20 mg BID JULIÁN Administration Penicillin G Potassium 4 mill. 100 mls @ 200 mls/hr 06/24/20 21:00 06/27/20 13:10 units/ Sodium Chloride IVPB 100 mls Q4HR JULIÁN Administration Clindamycin Phosphate/Dextrose 50 mls @ 100 mls/hr 06/24/20 22:00 06/27/20 05:30 900 mg/ Device IVPB 50 mls Q8HR JULIÁN Administration Insulin Glargine 30 units/ 0.3 mls @ 0 mls/hr 06/25/20 21:00 06/26/20 22:00 Miscellaneous Medication SC 0.3 mls HS JULIÁN Administration Insulin Glargine 30 units/ 0.3 mls @ 0 mls/hr 06/25/20 09:00 06/27/20 09:04 Miscellaneous Medication SC 0.3 mls QA JULIÁN Administration Sodium Chloride 1,000 mls @ 50 mls/hr 06/25/20 08:32 06/27/20 00:56 Normal Saline 0.9% IV Not Given .Q20H JULIÁN Insulin Human Lispro 0 units 06/24/20 09:00 06/27/20 05:32 Humalog 300 Units/3 Ml Vial SC 3 units .AGGRESSIVE SLIDING PRN Administration Aggressive Correctional Scale Insulin Human Lispro 0 units 06/24/20 21:34 06/26/20 21:14 Humalog 300 Units/3 Ml Vial SC 3 unit .BEDTIME SLIDING SC PRN Administration Bedtime Correctional Scale Insulin Human Lispro 8 units 06/25/20 12:00 06/27/20 13:07 Humalog 300 Units/3 Ml Vial SC Not Given TID-WM JULIÁN Miscellaneous Medication 1 each 06/23/20 21:45 06/24/20 05:50 Electrolyte Replacement Protocol 1 Each IVPB 1 each PRN PRN Administration ELECTROLYTES Polyethylene Glycol 17 gm 06/24/20 09:00 06/27/20 09:05 Polyethylene Glycol 3350 17 Gm Packet PO 17 gm DAILY JULIÁN Administration Zinc Sulfate 220 mg 06/25/20 09:00 06/27/20 09:06 Zinc Sulfate 220 Mg Cap PO 220 mg DAILY JULIÁN Administration Hospitalist Exam Vitals: Vital Signs (12 hours) Temp Pulse Resp BP BP BP BP 06/27/20 11:00 97.6 F 88 16 147/82 H 06/27/20 10:14 150/86 H 147/82 H 06/27/20 09:15 97.6 F 89 16 145/77 H 06/27/20 08:13 06/27/20 06:00 98.2 F 90 18 144/85 H 06/27/20 04:00 98.0 F 89 18 147/85 H Pulse Ox Pulse Ox Pulse Ox 06/27/20 11:00 96 06/27/20 10:14 91 L 94 L 06/27/20 09:15 94 L 06/27/20 08:13 95 06/27/20 06:00 92 L 06/27/20 04:00 93 L Weight Admit Weight 199 lb 8.293 oz Weight 199 lb 8.293 oz General Appearance: NAD Eye: PERRL ENT: normocephalic atraumatic Neck: supple Heart: RRR Respiratory: CTAB Gastrointestinal: soft Extremities: no cyanosis Extremities - other findings: left foot with wound vac in place Skin: normal turgor Musculoskeletal: normal tone, generalized weakness Psychiatric: normal affect, normal behavior, A&O x 3 Hosp A/P - Plan Patient is a pleasant 59 years old gentleman who has significant past medical history of diabetes, who presented to ED with complaining of back and neck pain after status post fall about 5 days ago. He had problem with ambulation, and weakness over the past week. Acute CVA - concerned for septic emboli vs other etiology --cont tele monitor for arrhythmias - no evidence of arrhythmias so far --CTA reviewed - no significant stenosis. Echo pending. Cont PT/OT/SP --Continue neurochecks. Neurology consult. --Cont ASA/Statin. tight glycemic control Sepsis, POA, likely secondary to left great toe osteomyelitis, s/p amputation on 06/26/20 --Abx changed to Pen G and Clinda. Appreciate ID input Strep bacterememia --check 2 Echo, may need ROBB --ID consult, mgt as above --rpt cultures in AM Left great toe osteomyelitis --Continue IV antibiotic as above. Ortho consult appreciated --s/p amputation on 06/26 - wound vac in place. cont routine post cares Acute hypoxic respiratory failure secondary to Covid 19 infection - unclear onset of symptoms, but weakness started about a week ago --continue O2 supplement. Vitamin C/D/zinc. Decadron was discontinued by ID --s/p convalescent plasma. --cont Lovenox for DVT ppx Uncontrolled diabetes with DKA --Anion gap closed. Transition to subcu insulin. Monitor blood glucose closely as patient is on Decadron. --A1C 13. Adjust basal insulin, add prandial insulin, cont ISS Generalized weakness - much improved. may have component of myositis --Initially there was concern for possible Guillain-Tyson syndrome given the fact that patient had history of EBV infection few months ago. --However, his MRI came back confirmed patient has CVA. Patient had a LP done, CSF analysis - elevated nutrophils but no WBC. Culture so far no growth --Cont neurocheck. --PT jos
--- NOTE | 2020-06-27 15:11 | RAD ---
Exam: Chest one view HISTORY:Worsening dyspnea. Altered mental status. COVID. Comparison: 06/23/2020 FINDINGS: Cardiac silhouette: Normal Aorta: Unremarkable Pulmonary vessels: Normal Costophrenic angles: Small bilateral effusions LUNGS: Worsening bilateral interstitial and alveolar opacities. Pneumothorax: None Osseous abnormalities: None IMPRESSION: Worsening bilateral interstitial and alveolar opacities. Bilateral effusions. Progression COVID pneumonia.
--- NOTE | 2020-06-27 15:19 | CT ---
Exam: Head CT without contrast HISTORY: Head neck and back pain. Increased NIH score. COMPARISON: 06/23/2020 FINDINGS: Hemorrhage: No intraparenchymal hemorrhage or extra-axial hematoma. Brain parenchyma: Cortical willard-white matter differentiation is preserved. No mass effect or midline shift. Basilar cisterns are patent. Ventricular system: Ventricles and sulci are patent and symmetric. Calvarium: Intact. Sinuses and mastoid air cells: Adequate aeration. IMPRESSION: No acute intracranial process.
[2020-06-27] MEDS: Ondansetron PF 4 MG/2 ML Vial IVP PRN (15:24)
--- NOTE | 2020-06-27 15:59 | PRG ---
DATE OF SERVICE: 06/27/2020 SUBJECTIVE: Feeling better today. He is still with pain in the neck in the right side but not as much as before. No abdominal pain. He was able to eat breakfast and lunch. Appetite is fair. OBJECTIVE: VITAL SIGNS: He is afebrile. His sat is 96 on 4 L. GENERAL: He does not appear in distress. LUNGS: Symmetric air entry. HEART: Still with that loud 3/6 to 4/6 murmur at the left parasternal border. ABDOMEN: Soft, not distended. No bladder distention. EXTREMITIES: Foot dressing not removed. LABORATORY DATA: His SARS-CoV-2 IgG antibody was 1.86. He is probably right around 10 days or so of illness approximately. White cell count 10.2, hemoglobin 11.3, platelets 173. Creatinine 0.79. Liver profile normal. Cultures with beta-hemolytic strep and all the different samples submitted. He had a chest x-ray with COVID pneumonia that seems to be some worsening. ASSESSMENT AND DISCUSSION: Type 2 diabetes, group A strep invasive infection, bacteremia and likely myositis in multiple sites, sternoclavicular joint is a concern. Endocarditis is a concern as well. He is going to need an echocardiogram as soon as we can clear him from the COVID regarding the echocardiogram tech. Now, he is on Cleocin and penicillin. I think we need to restart Decadron vis-a-vis his COVID. Job ID: [id number] [facility]
[2020-06-27] MEDS: Enoxaparin Sodium 40 MG/0.4 ML SYRINGE SC SCH (20:07)
[2020-06-27] MEDS: Atorvastatin Calcium 40 MG TAB PO SCH (20:07)
[2020-06-27] MEDS: Lidocaine 5% Patch TD SCH (22:05)
[2020-06-28] MEDS: Clindamycin/D5W 900 MG in Premix Bag 1 BAG IVPB SCH ×3 (07:53→21:38)
[2020-06-28] MEDS: Penicillin G Potassium 4 MILL.UNITS in Sodium Chloride 0.9% 100 ML IVPB SCH ×5 (07:53→22:54)
[2020-06-28 08:28] LABS: #Eosinphils 0.1 thou/uL (0.0-0.7); #Monocytes 0.6 thou/uL (0.11-0.59); #Neutrophils 12.3 thou/uL (1.40-6.50); %Basophils 0.1 % (0.0-1.0); %Eosinophils 0.6 % (0.0-10.0); %Lymphocytes 6.9 % (21.0-51.0); %Monocytes 4.1 % (0.0-10.0); %Neutrophils 88.3 % (42.0-75.0); Mean Corpuscular HGB CONC 30.4 g/dL (32.0-36.0); Mean Corpuscular Hemoglobin 27.2 pg (27.0-31.0); Mean Corpuscular Volume 89.5 fL (78.0-98.0); Mean Platelet Volume 9.8 fL (7.4-10.4); Platelet Count 187 thou/uL (130-400); RBC Distribution Width 13.3 % (11.5-14.5); White Blood Cell (WBC) Count 13.9 thou/uL (4.8-10.8)
[2020-06-28] MEDS: HumaLOG 300 UNITS/3 ML VIAL SC SCH ×2 (09:03→12:37)
[2020-06-28] MEDS: Cholecalciferol (Vitamin D3) 400 UNITS TAB PO SCH (09:07)
[2020-06-28] MEDS: Famotidine 20 MG TAB PO SCH (09:07)
[2020-06-28] MEDS: Zinc Sulfate 220 MG CAP PO SCH (09:07)
[2020-06-28] MEDS: Ascorbic Acid 500 mg Chewable Tablet PO SCH (09:07)
[2020-06-28] MEDS: Dexamethasone 4 mg/ml Vial SLOW IVP SCH (09:08)
[2020-06-28] MEDS: Polyethylene Glycol 3350 17 GM Packet PO SCH (09:08)
[2020-06-28] MEDS: Aspirin 81 mg Enteric Coated Tablet PO SCH (09:08)
[2020-06-28] MEDS: Insulin Glargine 30 UNITS in Pre-Filled Syringe 1 EACH SC SCH (11:29)
[2020-06-28] MEDS: Transdermal Patch Removal TOP SCH (12:06)
[2020-06-28] MEDS ORDERED: tiZANidine HCl 4 MG TAB PO SCH ×2 (12:45→21:00)
--- NOTE | 2020-06-28 12:46 | PDOC.HOSPP ---
- Subjective Subjective: Patient was seen examined at bedside. Patient stated he is doing better today. He still complaining of shoulder pain, and back pain. He appeared to be stable from his respiratory whyte on 4 L via nasal cannula. Patient was reevaluated by Dr. Fang last night restart him back on. - Objective Vital Signs & Weight: Vital Signs (12 hours) Temp Pulse Resp BP Pulse Ox 06/28/20 12:25 98.3 F 94 16 149/76 H 100 06/28/20 11:35 97.6 F 90 18 158/74 H 96 06/28/20 09:05 97.4 F L 92 16 143/73 H 98 Weight Admit Weight 199 lb 8.293 oz Weight 199 lb 8.293 oz I&O: 06/27/20 06/28/20 06/29/20 06:59 06:59 06:59 Intake Total 180 113 600 Output Total 1475 1100 500 Balance -1295 -987 100 Result Diagrams: 06/28/20 04:34 06/26/20 04:53 Additional Labs: Accuchecks 06/28/20 06/28/20 06/27/20 10:32 08:32 19:39 POC Glucose 91 72 106 H 06/27/20 16:48 POC Glucose 91 Radiology Reviewed by me: Yes EKG Reviewed by me: Yes Hospitalist ROS - Medication Medications: Active Medications Generic Name Dose Route Start Last Admin Trade Name Freq PRN Reason Stop Dose Admin Hydrocodone Bitart/Acetaminophen 1 tab 06/23/20 21:09 06/27/20 03:57 Hydrocodone/Acetaminophen 5/325 Mg Tablet PO 1 tab Q4H PRN Administration Moderate Pain (4-6) Ascorbic Acid 1,000 mg 06/25/20 09:00 06/28/20 09:07 Ascorbic Acid 500 Mg Chewable Tablet PO 1,000 mg DAILY JULIÁN Administration Aspirin 81 mg 06/25/20 09:00 06/28/20 09:08 Aspirin 81 Mg Enteric Coated Tablet PO 81 mg DAILY JULIÁN Administration Atorvastatin Calcium 40 mg 06/24/20 21:00 06/27/20 20:07 Atorvastatin Calcium 40 Mg Tab PO 40 mg HS JULIÁN Administration Cholecalciferol 400 units 06/25/20 09:00 06/28/20 09:07 Cholecalciferol (Vitamin D3) 400 Units Tab PO 400 units DAILY JULIÁN Administration Dexamethasone 6 mg 06/28/20 09:00 06/28/20 09:08 Dexamethasone 4 Mg/Ml Vial SLOW IVP 6 mg DAILY JULIÁN Administration Enoxaparin Sodium 40 mg 06/24/20 21:00 06/27/20 20:07 Enoxaparin Sodium 40 Mg/0.4 Ml Syringe SC 40 mg 2100 JULIÁN Administration Penicillin G Potassium 4 mill. 100 mls @ 200 mls/hr 06/24/20 21:00 06/28/20 09:08 units/ Sodium Chloride IVPB 100 mls Q4HR JULIÁN Administration Clindamycin Phosphate/Dextrose 50 mls @ 100 mls/hr 06/24/20 22:00 06/28/20 07:53 900 mg/ Device IVPB Not Given Q8HR JULIÁN Sodium Chloride 1,000 mls @ 50 mls/hr 06/25/20 08:32 06/27/20 22:06 Normal Saline 0.9% IV 1,000 mls .Q20H JULIÁN Administration Insulin Human Lispro 0 units 06/24/20 09:00 06/27/20 05:32 Humalog 300 Units/3 Ml Vial SC 3 units .AGGRESSIVE SLIDING PRN Administration Aggressive Correctional Scale Insulin Human Lispro 0 units 06/24/20 21:34 06/26/20 21:14 Humalog 300 Units/3 Ml Vial SC 3 unit .BEDTIME SLIDING SC PRN Administration Bedtime Correctional Scale Lidocaine 1 patch 06/27/20 22:00 06/27/20 22:05 Lidocaine 5% Patch TD 1 patch 2200 JULIÁN Administration Miscellaneous Medication 1 each 06/23/20 21:45 06/24/20 05:50 Electrolyte Replacement Protocol 1 Each IVPB 1 each PRN PRN Administration ELECTROLYTES Miscellaneous Medication 1 each 06/28/20 10:00 06/28/20 12:06 Lidocaine Patch Removal 1 Each TOP 1 each 1000 JULIÁN Administration Ondansetron HCl 4 mg 06/23/20 21:09 06/27/20 15:24 Ondansetron Pf 4 Mg/2 Ml Vial IVP 4 mg Q6H PRN Administration Nausea/Vomiting use 1st Polyethylene Glycol 17 gm 06/24/20 09:00 06/28/20 09:08 Polyethylene Glycol 3350 17 Gm Packet PO 17 gm DAILY JULIÁN Administration Zinc Sulfate 220 mg 06/25/20 09:00 06/28/20 09:07 Zinc Sulfate 220 Mg Cap PO 220 mg DAILY JULIÁN Administration Hospitalist Exam Vitals: Vital Signs (12 hours) Temp Pulse Resp BP Pulse Ox 06/28/20 12:25 98.3 F 94 16 149/76 H 100 06/28/20 11:35 97.6 F 90 18 158/74 H 96 06/28/20 09:05 97.4 F L 92 16 143/73 H 98 Weight Admit Weight 199 lb 8.293 oz Weight 199 lb 8.293 oz General Appearance: NAD Eye: PERRL ENT: normocephalic atraumatic Neck: supple Heart: RRR Respiratory: CTAB Gastrointestinal: soft Extremities: no cyanosis Skin: normal turgor Skin - other findings: Left foot wrapped in Roderick bandage, wound VAC in place Musculoskeletal: generalized weakness Hosp A/P - Plan Patient is a pleasant 59 years old gentleman who has significant past medical history of diabetes, who presented to ED with complaining of back and neck pain after status post fall about 5 days ago. He had problem with ambulation, and weakness over the past week. Strep bacterememia --check 2 Echo - pending, may need ROBB --ID consult, mgt as above --rpt cultures in AM Acute CVA - likely d/t septic emboli --cont tele monitor for arrhythmias - no evidence of arrhythmias so far --CTA reviewed - no significant stenosis. Echo pending. Cont PT/OT/SP --Continue neurochecks. Neurology consult appreciated. --Cont ASA/Statin. tight glycemic control Sepsis, POA, likely secondary to left great toe osteomyelitis, s/p amputation on 06/26/20 --Abx changed to Pen G and Clinda. Appreciate ID input Left great toe osteomyelitis --Continue IV antibiotic as above. Ortho consult appreciated --s/p amputation on 06/26 - wound vac in place. cont routine post cares Acute hypoxic respiratory failure secondary to Covid 19 infection - unclear onset of symptoms, but weakness started about a week ago --continue O2 supplement. Vitamin C/D/zinc, and Decadron --s/p convalescent plasma. --cont Lovenox for DVT ppx Uncontrolled diabetes with DKA --Anion gap closed. Transition to subcu insulin. Monitor blood glucose closely as patient is on Decadron. --A1C 13. He has episode of hypoglycemia. will hold of on basal for now and continue ISS Generalized weakness - much improved. may have component of myositis --Initially there was concern for possible Guillain-Tyson syndrome given the fact that patient had history of EBV infection few months ago. --However, his MRI came back confirmed patient has CVA. Patient had a LP done, CSF analysis - elevated nutrophils but no WBC. Culture so far no growth --Cont neurocheck. --PT eval
--- NOTE | 2020-06-28 15:23 | PRG ---
DATE OF SERVICE: 06/28/2020 Av Jett is a 59-year-old male patient, followed up today after undergoing amputation on 06/26/2020 two days ago. Amputation of left great toe to the proximal phalanx wound, left open for healing by secondary intention. Wound Care placed a wound VAC. At this point, the wound VAC was changed. The wound is granulating and looks healthy. It should heal without problems. At this point, the patient can be discharged home on oral antibiotics. Cultures grew out Streptococcus. I can see him in my office in 2 to 3 weeks. Outpatient wound VAC will be arranged. I will see him as needed this hospitalization. Job ID: [id number]
[2020-06-28] MEDS: HumaLOG 300 UNITS/3 ML VIAL SC PRN ×2 (17:40→21:01)
[2020-06-28] MEDS: Acetaminophen 500 MG TAB PO PRN (17:42)
[2020-06-28] MEDS: Sodium Chloride 0.9% 1,000 ML IV SCH (17:43)
[2020-06-28] MEDS: Atorvastatin Calcium 40 MG TAB PO SCH (20:35)
[2020-06-28] MEDS: Enoxaparin Sodium 40 MG/0.4 ML SYRINGE SC SCH (20:35)
[2020-06-28 20:36] LABS: Neuron Specific Enolase-CSF 2.2 ug/L (1.0-7.0)
[2020-06-28] MEDS: Lidocaine 5% Patch TD SCH (21:16)
[2020-06-28] MEDS ORDERED: Lidocaine 5% Patch TD SCH (22:00)
[2020-06-28] MEDS: HYDROcodone/Acetaminophen 5/325 mg Tablet PO PRN (22:57)
[2020-06-29] MEDS: Penicillin G Potassium 4 MILL.UNITS in Sodium Chloride 0.9% 100 ML IVPB SCH ×6 (01:13→20:31)
[2020-06-29 05:00] LABS: #Eosinphils 0.1 thou/uL (0.0-0.7); #Lymphocytes 0.8 thou/uL (1.20-3.40); #Monocytes 0.7 thou/uL (0.11-0.59); #Neutrophils 11.9 thou/uL (1.40-6.50); %Basophils 0.1 % (0.0-1.0); %Eosinophils 0.8 % (0.0-10.0); %Monocytes 4.8 % (0.0-10.0); %Neutrophils 88.3 % (42.0-75.0); Hemoglobin 11.3 g/dL (14.0-18.0); Mean Corpuscular HGB CONC 31.5 g/dL (32.0-36.0); Mean Platelet Volume 9.1 fL (7.4-10.4); Platelet Count 217 thou/uL (130-400); RBC Distribution Width 13.3 % (11.5-14.5); Red Blood Cell (RBC) Count 4.03 mill/uL (4.70-6.10); White Blood Cell (WBC) Count 13.5 thou/uL (4.8-10.8)
[2020-06-29] MEDS: HumaLOG 300 UNITS/3 ML VIAL SC PRN ×3 (05:32→17:37)
[2020-06-29 05:48] LABS: Anion Gap 7 mmol/L (10-20); BUN (Urea Nitrogen) 16 mg/dL (8.4-25.7); Calc. Creatinine Clearance 162 mL/min (70-130); Calcium 8.2 mg/dL (7.8-10.44); Carbon Dioxide 36 mmol/L (22-29); Chloride 94 mmol/L (98-107); Glucose 234 mg/dL (70-105); Magnesium 1.6 mg/dL (1.6-2.6); Potassium 4.6 mmol/L (3.5-5.1); Sodium 132 mmol/L (136-145)
[2020-06-29] MEDS: Clindamycin/D5W 900 MG in Premix Bag 1 BAG IVPB SCH ×3 (06:06→22:04)
[2020-06-29] MEDS: Cholecalciferol (Vitamin D3) 400 UNITS TAB PO SCH (08:55)
[2020-06-29] MEDS: Dexamethasone 4 mg/ml Vial SLOW IVP SCH (08:55)
[2020-06-29] MEDS: Ascorbic Acid 500 mg Chewable Tablet PO SCH (08:55)
[2020-06-29] MEDS: Zinc Sulfate 220 MG CAP PO SCH (08:55)
[2020-06-29] MEDS: Aspirin 81 mg Enteric Coated Tablet PO SCH (08:55)
[2020-06-29] MEDS: Polyethylene Glycol 3350 17 GM Packet PO SCH (08:57)
[2020-06-29] MEDS: Transdermal Patch Removal TOP SCH (08:57)
[2020-06-29] MEDS: Sodium Chloride 0.9% 1,000 ML IV SCH (11:22)
[2020-06-29] MEDS: Ondansetron PF 4 MG/2 ML Vial IVP PRN (13:18)
[2020-06-29] MEDS: Acetaminophen 500 MG TAB PO PRN (14:46)
--- NOTE | 2020-06-29 15:42 | PDOC.HOSPP ---
- Subjective Subjective: Patient was seen examined at bedside. Patient stated he is feeling better. Pain is better controlled, he actually sitting up working with physical therapy. No fever. Repeat blood cultures so far no growth. He remained normal sinus rhythm. He is satting well on 3 L. - Objective Vital Signs & Weight: Vital Signs (12 hours) Temp Pulse Pulse Pulse Resp BP BP 06/29/20 13:31 06/29/20 11:46 97.4 F L 94 18 06/29/20 10:35 94 94 167/83 H 155/86 H 06/29/20 09:10 97.5 F L 88 18 06/29/20 04:00 98.0 F 91 18 BP BP Pulse Ox 06/29/20 13:31 151/82 H 06/29/20 11:46 167/85 H 92 L 06/29/20 10:35 06/29/20 09:10 145/82 H 95 06/29/20 04:00 139/75 95 Weight Admit Weight 199 lb 8.293 oz Weight 199 lb 8.293 oz I&O: 06/28/20 06/29/20 06/30/20 06:59 06:59 06:59 Intake Total 113 2023 107 Output Total 1100 1550 300 Balance -987 473 -193 Result Diagrams: 06/29/20 04:52 06/29/20 04:52 Additional Labs: Accuchecks 06/29/20 06/29/20 06/28/20 10:58 05:17 20:35 POC Glucose 183 H 224 H 204 H 06/28/20 16:50 POC Glucose 235 H Radiology Reviewed by me: Yes EKG Reviewed by me: Yes Hospitalist ROS - Medication Medications: Active Medications Generic Name Dose Route Start Last Admin Trade Name Freq PRN Reason Stop Dose Admin Acetaminophen 1,000 mg 06/26/20 14:52 06/29/20 14:46 Acetaminophen 500 Mg Tab PO 1,000 mg Q6H PRN Administration Mild Pain (1-3) Hydrocodone Bitart/Acetaminophen 1 tab 06/23/20 21:09 06/28/20 22:57 Hydrocodone/Acetaminophen 5/325 Mg Tablet PO 1 tab Q4H PRN Administration Moderate Pain (4-6) Ascorbic Acid 1,000 mg 06/25/20 09:00 06/29/20 08:55 Ascorbic Acid 500 Mg Chewable Tablet PO 1,000 mg DAILY JULIÁN Administration Aspirin 81 mg 06/25/20 09:00 06/29/20 08:55 Aspirin 81 Mg Enteric Coated Tablet PO 81 mg DAILY JULIÁN Administration Atorvastatin Calcium 40 mg 06/24/20 21:00 06/28/20 20:35 Atorvastatin Calcium 40 Mg Tab PO 40 mg HS JULIÁN Administration Cholecalciferol 400 units 06/25/20 09:00 06/29/20 08:55 Cholecalciferol (Vitamin D3) 400 Units Tab PO 400 units DAILY JULIÁN Administration Dexamethasone 6 mg 06/28/20 09:00 06/29/20 08:55 Dexamethasone 4 Mg/Ml Vial SLOW IVP 6 mg DAILY JULIÁN Administration Enoxaparin Sodium 40 mg 06/24/20 21:00 06/28/20 20:35 Enoxaparin Sodium 40 Mg/0.4 Ml Syringe SC 40 mg 2100 JULIÁN Administration Penicillin G Potassium 4 mill. 100 mls @ 200 mls/hr 06/24/20 21:00 06/29/20 13:08 units/ Sodium Chloride IVPB 100 mls Q4HR JULIÁN Administration Clindamycin Phosphate/Dextrose 50 mls @ 100 mls/hr 06/24/20 22:00 06/29/20 14:31 900 mg/ Device IVPB 50 mls Q8HR JULIÁN Administration Sodium Chloride 1,000 mls @ 50 mls/hr 06/25/20 08:32 06/29/20 11:22 Normal Saline 0.9% IV 1,000 mls .Q20H JULIÁN Administration Insulin Human Lispro 0 units 06/24/20 09:00 06/29/20 11:22 Humalog 300 Units/3 Ml Vial SC 3 units .AGGRESSIVE SLIDING PRN Administration Aggressive Correctional Scale Insulin Human Lispro 0 units 06/24/20 21:34 06/28/20 21:01 Humalog 300 Units/3 Ml Vial SC 2 unit .BEDTIME SLIDING SC PRN Administration Bedtime Correctional Scale Lidocaine 1 patch 06/27/20 22:00 06/28/20 21:16 Lidocaine 5% Patch TD 1 patch 2200 JULIÁN Administration Miscellaneous Medication 1 each 06/23/20 21:45 06/24/20 05:50 Electrolyte Replacement Protocol 1 Each IVPB 1 each PRN PRN Administration ELECTROLYTES Miscellaneous Medication 1 each 06/28/20 10:00 06/29/20 08:57 Lidocaine Patch Removal 1 Each TOP 1 each 1000 JULIÁN Administration Ondansetron HCl 4 mg 06/23/20 21:09 06/29/20 13:18 Ondansetron Pf 4 Mg/2 Ml Vial IVP 4 mg Q6H PRN Administration Nausea/Vomiting use 1st Pantoprazole Sodium 40 mg 06/29/20 09:00 06/29/20 08:55 Pantoprazole 40 Mg Tab PO 40 mg DAILY JULIÁN Administration Polyethylene Glycol 17 gm 06/24/20 09:00 06/29/20 08:57 Polyethylene Glycol 3350 17 Gm Packet PO 17 gm DAILY JULIÁN Administration Zinc Sulfate 220 mg 06/25/20 09:00 06/29/20 08:55 Zinc Sulfate 220 Mg Cap PO 220 mg DAILY JULIÁN Administration Hospitalist Exam Vitals: Vital Signs (12 hours) Temp Pulse Pulse Pulse Resp BP BP 06/29/20 13:31 06/29/20 11:46 97.4 F L 94 18 06/29/20 10:35 94 94 167/83 H 155/86 H 06/29/20 09:10 97.5 F L 88 18 06/29/20 04:00 98.0 F 91 18 BP BP Pulse Ox 06/29/20 13:31 151/82 H 06/29/20 11:46 167/85 H 92 L 06/29/20 10:35 06/29/20 09:10 145/82 H 95 06/29/20 04:00 139/75 95 Weight Admit Weight 199 lb 8.293 oz Weight 199 lb 8.293 oz General Appearance: NAD Eye: PERRL ENT: normocephalic atraumatic Neck: supple Heart: RRR Respiratory: CTAB Extremities: no cyanosis Musculoskeletal: generalized weakness Psychiatric: normal affect, normal behavior, A&O x 3 Hosp A/P - Plan Patient is a pleasant 59 years old gentleman who has significant past medical history of diabetes, who presented to ED with complaining of back and neck pain after status post fall about 5 days ago. He had problem with ambulation, and weakness over the past week. Strep bacterememia --check 2 Echo - pending, may need ROBB --Cont IV abx as per ID with Pen G and Clindamycin - pending duration. --rpt blood culture no growth so far Acute CVA - likely d/t septic emboli --cont tele monitor for arrhythmias - no evidence of arrhythmias so far --CTA reviewed - no significant stenosis. Echo pending. Cont PT/OT/SP --Continue neurochecks. Neurology consult appreciated. --Cont ASA/Statin. tight glycemic control Sepsis, POA, likely secondary to left great toe osteomyelitis, s/p amputation on 06/26/20 --Abx changed to Pen G and Clinda. Appreciate ID input Left great toe osteomyelitis --Continue IV antibiotic as above. Ortho consult appreciated --s/p amputation on 06/26 - wound vac in place. cont routine post cares. Follow up with Dr. Chiang for post op follow up kina 2-3 wks Acute hypoxic respiratory failure secondary to Covid 19 infection - unclear onset of symptoms, but weakness started about a week ago --continue O2 supplement. Vitamin C/D/zinc, and Decadron --s/p convalescent plasma. --cont Lovenox for DVT ppx Uncontrolled diabetes with DKA --Anion gap closed. Transition to subcu insulin. Monitor blood glucose closely as patient is on Decadron. --A1C 13. He has episode of hypoglycemia. will hold of on basal for now and continue ISS Generalized weakness - much improved. may have component of myositis --Initially there was concern for possible Guillain-Tyson syndrome given the fact that patient had history of EBV infection few months ago. --However, his MRI came back confirmed patient has CVA. Patient had a LP done, CSF analysis - elevated nutrophils but no WBC. Culture so far no growth. No evidence of meningitsi --Cont neurocheck. --Cont PT
--- NOTE | 2020-06-29 16:05 | PRG ---
DATE OF SERVICE: 06/29/2020 SUBJECTIVE: He was able to stand up today, but feels very exhausted right now. He is not coughing. Still with the same limitation in range of motion of the right sternocleidomastoid area and sternoclavicular joint and does not have headaches. He is able to swallow without problems. No abdominal pain. He is voiding in the urinal. OBJECTIVE: VITAL SIGNS: His temperature is normal, blood pressure 150/82, heart rate 94, respirations 18, and O2 saturation 92% to 95% on nasal cannula O2 at 3 L. LUNGS: Symmetric air entry. Few crackles at the bases. HEART: S1 and S2, regular rate. ABDOMEN: Soft. Not distended. EXTREMITIES: He has trouble moving the right upper extremity due to pain mostly. I think it is related to the sternoclavicular joint inflammatory process. He is able to move the other extremities well. LABORATORY DATA: White cell count 13.5, hemoglobin 11, platelets 217, 88% neutrophils. Creatinine 0.62. His COVID antibody again was 1.86. ASSESSMENT AND DISCUSSION: Type 2 diabetes, group A strep invasive infection with bacteremia, myositis, mostly centered around the right sternoclavicular joint and muscle. Endocarditis is a concern and he is going to need an echocardiogram as soon as possible and he is on Decadron. We will go ahead and repeat this chest x-ray since his COVID may be worsening right now. Job ID: [id number]
--- NOTE | 2020-06-29 19:11 | RAD ---
PORTABLE CHEST: 06/29/20 HISTORY: COVID follow-up. COMPARISON: 06/27/20 study. Heart size is enlarged. Bilateral lung infiltrates are fairly similar to the prior exam. Some of the right upper lobe parenchymal changes appear slightly improved. Pleural effusions are unchanged. IMPRESSION: Minimal improvement to the infiltrative changes specifically some very slight improvement to the righ t upper lobe changes. POS: XAVIER
[2020-06-29] MEDS: Atorvastatin Calcium 40 MG TAB PO SCH (20:31)
[2020-06-29] MEDS: Enoxaparin Sodium 40 MG/0.4 ML SYRINGE SC SCH (20:32)
[2020-06-29] MEDS: traMADol HCl 50 MG TAB PO PRN (22:04)
[2020-06-29] MEDS: Lidocaine 5% Patch TD SCH (22:04)
[2020-06-30] MEDS: Penicillin G Potassium 4 MILL.UNITS in Sodium Chloride 0.9% 100 ML IVPB SCH ×6 (00:14→21:21)
[2020-06-30] MEDS: Clindamycin/D5W 900 MG in Premix Bag 1 BAG IVPB SCH ×3 (05:57→21:54)
[2020-06-30] MEDS: HumaLOG 300 UNITS/3 ML VIAL SC PRN ×4 (05:57→21:22)
[2020-06-30] MEDS ORDERED: Electrolyte Replacement Protocol FS PRN (07:30)
[2020-06-30] MEDS ORDERED: Magnesium 2 GM/50 ML 2 GM in Premix Bag 1 BAG IVPB SCH (08:00)
[2020-06-30] MEDS: Insulin Glargine 15 UNITS in Pre-Filled Syringe 1 EACH SC SCH ×2 (09:40→21:21)
[2020-06-30] MEDS: Aspirin 81 mg Enteric Coated Tablet PO SCH (09:40)
[2020-06-30] MEDS: Cholecalciferol (Vitamin D3) 400 UNITS TAB PO SCH (09:40)
[2020-06-30] MEDS: Ascorbic Acid 500 mg Chewable Tablet PO SCH (09:40)
[2020-06-30] MEDS: Zinc Sulfate 220 MG CAP PO SCH (09:40)
[2020-06-30] MEDS: Dexamethasone 4 mg/ml Vial SLOW IVP SCH (09:40)
[2020-06-30] MEDS: Sodium Chloride 0.9% 1,000 ML IV SCH (09:40)
[2020-06-30] MEDS: Transdermal Patch Removal TOP SCH (09:40)
[2020-06-30] MEDS: Polyethylene Glycol 3350 17 GM Packet PO SCH (10:43)
--- NOTE | 2020-06-30 14:13 | PDOC.HOSPP ---
- Subjective Subjective: He is feeling better today, pain is better control. working with PT. His O2 requirement weaned down to 3L. CXR showed improvement. Updated his on the phone. - Objective Vital Signs & Weight: Vital Signs (12 hours) Temp Pulse Resp BP Pulse Ox 06/30/20 12:00 96.1 F L 86 24 H 136/74 96 06/30/20 04:59 97.8 F 87 18 138/75 94 L Weight Admit Weight 199 lb 8.293 oz Weight 199 lb 8.293 oz I&O: 06/29/20 06/30/20 07/01/20 06:59 06:59 06:59 Intake Total 2022 2102 Output Total 1550 1650 Balance 473 453 Result Diagrams: 06/29/20 04:52 06/29/20 04:52 Additional Labs: Accuchecks 06/30/20 06/29/20 06/29/20 06:00 20:34 16:10 POC Glucose 240 H 193 H 194 H Radiology Reviewed by me: Yes EKG Reviewed by me: Yes Hospitalist ROS - Medication Medications: Active Medications Generic Name Dose Route Start Last Admin Trade Name Freq PRN Reason Stop Dose Admin Acetaminophen 1,000 mg 06/26/20 14:52 06/29/20 14:46 Acetaminophen 500 Mg Tab PO 1,000 mg Q6H PRN Administration Mild Pain (1-3) Hydrocodone Bitart/Acetaminophen 1 tab 06/23/20 21:09 06/28/20 22:57 Hydrocodone/Acetaminophen 5/325 Mg Tablet PO 1 tab Q4H PRN Administration Moderate Pain (4-6) Ascorbic Acid 1,000 mg 06/25/20 09:00 06/30/20 09:40 Ascorbic Acid 500 Mg Chewable Tablet PO 1,000 mg DAILY JULIÁN Administration Aspirin 81 mg 06/25/20 09:00 06/30/20 09:40 Aspirin 81 Mg Enteric Coated Tablet PO 81 mg DAILY JULIÁN Administration Atorvastatin Calcium 40 mg 06/24/20 21:00 06/29/20 20:31 Atorvastatin Calcium 40 Mg Tab PO 40 mg HS JULIÁN Administration Cholecalciferol 400 units 06/25/20 09:00 06/30/20 09:40 Cholecalciferol (Vitamin D3) 400 Units Tab PO 400 units DAILY JULIÁN Administration Dexamethasone 6 mg 06/28/20 09:00 06/30/20 09:40 Dexamethasone 4 Mg/Ml Vial SLOW IVP 6 mg DAILY JULIÁN Administration Enoxaparin Sodium 40 mg 06/24/20 21:00 06/29/20 20:32 Enoxaparin Sodium 40 Mg/0.4 Ml Syringe SC 40 mg 2100 JULIÁN Administration Penicillin G Potassium 4 mill. 100 mls @ 200 mls/hr 06/24/20 21:00 06/30/20 12:47 units/ Sodium Chloride IVPB 100 mls Q4HR JULIÁN Administration Clindamycin Phosphate/Dextrose 50 mls @ 100 mls/hr 06/24/20 22:00 06/30/20 05:57 900 mg/ Device IVPB 50 mls Q8HR JULIÁN Administration Sodium Chloride 1,000 mls @ 50 mls/hr 06/25/20 08:32 06/30/20 09:40 Normal Saline 0.9% IV 1,000 mls .Q20H JULIÁN Administration Insulin Glargine 15 units/ 0.15 mls @ 0 mls/hr 06/30/20 09:00 06/30/20 09:40 Miscellaneous Medication SC 0.15 mls QAM JULIÁN Administration Insulin Human Lispro 0 units 06/24/20 09:00 06/30/20 05:57 Humalog 300 Units/3 Ml Vial SC 6 units .AGGRESSIVE SLIDING PRN Administration Aggressive Correctional Scale Insulin Human Lispro 0 units 06/24/20 21:34 06/28/20 21:01 Humalog 300 Units/3 Ml Vial SC 2 unit .BEDTIME SLIDING SC PRN Administration Bedtime Correctional Scale Lidocaine 1 patch 06/27/20 22:00 06/29/20 22:04 Lidocaine 5% Patch TD 1 patch 2200 JULIÁN Administration Miscellaneous Medication 1 each 06/28/20 10:00 06/30/20 09:40 Lidocaine Patch Removal 1 Each TOP 1 each 1000 JULIÁN Administration Ondansetron HCl 4 mg 06/23/20 21:09 06/29/20 13:18 Ondansetron Pf 4 Mg/2 Ml Vial IVP 4 mg Q6H PRN Administration Nausea/Vomiting use 1st Pantoprazole Sodium 40 mg 06/29/20 09:00 06/30/20 09:40 Pantoprazole 40 Mg Tab PO 40 mg DAILY JULIÁN Administration Polyethylene Glycol 17 gm 06/24/20 09:00 06/30/20 10:43 Polyethylene Glycol 3350 17 Gm Packet PO 17 gm DAILY JULIÁN Administration Tramadol HCl 50 mg 06/26/20 14:52 06/29/20 22:04 Tramadol Hcl 50 Mg Tab PO 50 mg Q6H PRN Administration Moderate Pain (4-6) Zinc Sulfate 220 mg 06/25/20 09:00 06/30/20 09:40 Zinc Sulfate 220 Mg Cap PO 220 mg DAILY JULIÁN Administration Hospitalist Exam Vitals: Vital Signs (12 hours) Temp Pulse Resp BP Pulse Ox 06/30/20 12:00 96.1 F L 86 24 H 136/74 96 06/30/20 04:59 97.8 F 87 18 138/75 94 L Weight Admit Weight 199 lb 8.293 oz Weight 199 lb 8.293 oz General Appearance: NAD Eye: PERRL ENT: normocephalic atraumatic Neck: supple Heart: RRR Respiratory: rhonchi Gastrointestinal: soft Extremities: no cyanosis Skin: normal turgor Neurological - other findings: b/l weakness Musculoskeletal: generalized weakness Psychiatric: normal affect, normal behavior, A&O x 3 Hosp A/P (1) Acute CVA (cerebrovascular accident) Code(s): I63.9 - CEREBRAL INFARCTION, UNSPECIFIED Status: Acute (2) Bacteremia Code(s): R78.81 - BACTEREMIA Status: Acute (3) DM type 2 (diabetes mellitus, type 2) Status: Acute (4) Myositis Code(s): M60.9 - MYOSITIS, UNSPECIFIED Status: Acute (5) Osteomyelitis of toe Code(s): M86.9 - OSTEOMYELITIS, UNSPECIFIED Status: Acute (6) Pneumonia due to COVID-19 virus Code(s): U07.1 - COVID-19; J12.82 - PNEUMONIA DUE TO CORONAVIRUS DISEASE 2019 Status: Acute (7) Acute respiratory failure due to COVID-19 Code(s): U07.1 - COVID-19; J96.00 - ACUTE RESPIRATORY FAILURE, UNSP W HYPOXIA OR HYPERCAPNIA Status: Acute - Plan Patient is a pleasant 59 years old gentleman who has significant past medical history of diabetes, who presented to ED with complaining of back and neck pain after status post fall about 5 days ago. He had problem with ambulation, and weakness over the past week. Strep bacterememia --check 2 Echo - pending, may need ROBB; unable to obtain until out of isolation. Waiting for Dr Fang to clear --Cont IV abx as per ID with Pen G and Clindamycin - pending duration. --rpt blood culture no growth so far Acute CVA - likely d/t septic emboli --cont tele monitor for arrhythmias - no evidence of arrhythmias so far --CTA reviewed - no significant stenosis. Echo pending. Cont PT/OT/SP --Continue neurochecks. Neurology consult appreciated. --Cont ASA/Statin. tight glycemic control --Cont PT Sepsis, POA, likely secondary to left great toe osteomyelitis, s/p amputation on 06/26/20 --Abx changed to Pen G and Clinda. Appreciate ID input Left great toe osteomyelitis --Continue IV antibiotic as above. Ortho consult appreciated --s/p amputation on 06/26 - wound vac in place. cont routine post cares. Follow up with Dr. Chiang for post op follow up kina 2-3 wks Acute hypoxic respiratory failure secondary to Covid 19 infection - unclear onset of symptoms, but weakness started about a week ago --continue O2 supplement. Vitamin C/D/zinc, and Decadron --s/p convalescent plasma. --cont Lovenox for DVT ppx Uncontrolled diabetes with DKA --Anion gap closed. Transition to subcu insulin. Monitor blood glucose closely as patient is on Decadron. --A1C 13. He has episodes of hypoglycemia. Now eating better, will resume basal insulin and monitor BG/adjust prn Generalized weakness - much improved. may have component of myositis --Initially there was concern for possible Guillain-Tyson syndrome given the fact that patient had history of EBV infection few months ago. --However, his MRI came back confirmed patient has CVA. Patient had a LP done, CSF analysis - elevated nutrophils but no WBC. Culture so far no growth. No evidence of meningitis --Cont neurocheck. --Cont PT, likely need inpt rehab - pending duration of abx from ID HTN, essential --start Norvasc
[2020-06-30] MEDS ORDERED: Amlodipine 10 MG TAB PO SCH (14:15)
[2020-06-30] MEDS: Enoxaparin Sodium 40 MG/0.4 ML SYRINGE SC SCH (21:21)
[2020-06-30] MEDS: Atorvastatin Calcium 40 MG TAB PO SCH (21:21)
[2020-06-30] MEDS: Lidocaine 5% Patch TD SCH (21:24)
[2020-06-30] MEDS: Acetaminophen 500 MG TAB PO PRN (21:36)
[2020-06-30] MEDS: Melatonin 3 MG TAB PO PRN (23:24)
[2020-07-01] MEDS: Penicillin G Potassium 4 MILL.UNITS in Sodium Chloride 0.9% 100 ML IVPB SCH ×6 (01:07→20:12)
[2020-07-01] MEDS: traMADol HCl 50 MG TAB PO PRN (01:14)
[2020-07-01] MEDS: Clindamycin/D5W 900 MG in Premix Bag 1 BAG IVPB SCH ×3 (06:29→22:13)
[2020-07-01] MEDS ORDERED: Magnesium 2 GM/50 ML 2 GM in Premix Bag 1 BAG IVPB SCH ×2 (06:30→08:00)
[2020-07-01] MEDS: HumaLOG 300 UNITS/3 ML VIAL SC PRN ×3 (06:31→20:11)
[2020-07-01] MEDS: Ascorbic Acid 500 mg Chewable Tablet PO SCH (09:29)
[2020-07-01] MEDS: Polyethylene Glycol 3350 17 GM Packet PO SCH (09:29)
[2020-07-01] MEDS: Zinc Sulfate 220 MG CAP PO SCH (09:29)
[2020-07-01] MEDS: Dexamethasone 4 mg/ml Vial SLOW IVP SCH (09:30)
[2020-07-01] MEDS: Aspirin 81 mg Enteric Coated Tablet PO SCH (09:30)
[2020-07-01] MEDS: Amlodipine 5 MG TAB PO SCH (09:30)
[2020-07-01] MEDS: Cholecalciferol (Vitamin D3) 400 UNITS TAB PO SCH (09:30)
[2020-07-01] MEDS: Insulin Glargine 15 UNITS in Pre-Filled Syringe 1 EACH SC SCH ×2 (09:30→20:11)
[2020-07-01] MEDS: Transdermal Patch Removal TOP SCH (09:31)
[2020-07-01] MEDS: Sodium Chloride 0.9% 1,000 ML IV SCH ×2 (12:35→20:12)
[2020-07-01] MEDS ORDERED: Bisacodyl 5 MG TAB PO PRN (13:29)
--- NOTE | 2020-07-01 17:23 | PDOC.HOSPP ---
- Subjective Encounter Date: 07/01/20 Encounter Time: 07:30 Subjective: Patient seen for follow-up regarding CVA. He reports pain over the right side of his neck. - Objective Vital Signs & Weight: Vital Signs (12 hours) Temp Pulse Resp BP BP BP Pulse Ox 07/01/20 16:13 96.8 F L 91 20 142/76 H 92 L 07/01/20 12:02 96.7 F L 85 18 126/69 95 07/01/20 10:38 138/79 138/76 07/01/20 09:45 97.6 F 89 20 135/71 92 L Weight Admit Weight 199 lb 8.293 oz Weight 199 lb 8.293 oz I&O: 06/30/20 07/01/20 07/02/20 06:59 06:59 06:59 Intake Total 2103 2894 Output Total 1650 2100 400 Balance 453 794 -400 Result Diagrams: 06/29/20 04:52 06/29/20 04:52 Additional Labs: Accuchecks 07/01/20 07/01/20 06/30/20 16:04 10:40 20:05 POC Glucose 212 H 143 H 295 H I reviewed patient's labs and MAR EKG Reviewed by me: Yes (Normal sinus rhythm on telemetry) Hospitalist ROS - Review of Systems Cardiovascular: denies: chest pain, palpitations, orthopnea, paroxysmal noc. dyspnea, edema, light headedness Gastrointestinal: denies: nausea, vomiting, abdominal pain, diarrhea, constipation, melena, hematochezia Musculoskeletal: reports: neck pain - Medication Medications: Active Medications Generic Name Dose Route Start Last Admin Trade Name Mikyq PRN Reason Stop Dose Admin Acetaminophen 1,000 mg 06/26/20 14:52 06/30/20 21:36 Acetaminophen 500 Mg Tab PO 1,000 mg Q6H PRN Administration Mild Pain (1-3) Hydrocodone Bitart/Acetaminophen 1 tab 06/23/20 21:09 06/28/20 22:57 Hydrocodone/Acetaminophen 5/325 Mg Tablet PO 1 tab Q4H PRN Administration Moderate Pain (4-6) Amlodipine Besylate 5 mg 07/01/20 09:00 07/01/20 09:30 Amlodipine 5 Mg Tab PO 5 mg DAILY JULIÁN Administration Ascorbic Acid 1,000 mg 06/25/20 09:00 07/01/20 09:29 Ascorbic Acid 500 Mg Chewable Tablet PO 1,000 mg DAILY JULIÁN Administration Aspirin 81 mg 06/25/20 09:00 07/01/20 09:30 Aspirin 81 Mg Enteric Coated Tablet PO 81 mg DAILY JULIÁN Administration Atorvastatin Calcium 40 mg 06/24/20 21:00 06/30/20 21:21 Atorvastatin Calcium 40 Mg Tab PO 40 mg HS JULIÁN Administration Cholecalciferol 400 units 06/25/20 09:00 07/01/20 09:30 Cholecalciferol (Vitamin D3) 400 Units Tab PO 400 units DAILY JULIÁN Administration Dexamethasone 6 mg 06/28/20 09:00 07/01/20 09:30 Dexamethasone 4 Mg/Ml Vial SLOW IVP 6 mg DAILY JULIÁN Administration Enoxaparin Sodium 40 mg 06/24/20 21:00 06/30/20 21:21 Enoxaparin Sodium 40 Mg/0.4 Ml Syringe SC 40 mg 2100 JULIÁN Administration Penicillin G Potassium 4 mill. 100 mls @ 200 mls/hr 06/24/20 21:00 07/01/20 12:36 units/ Sodium Chloride IVPB 100 mls Q4HR JULIÁN Administration Clindamycin Phosphate/Dextrose 50 mls @ 100 mls/hr 06/24/20 22:00 07/01/20 06:29 900 mg/ Device IVPB 50 mls Q8HR JULIÁN Administration Sodium Chloride 1,000 mls @ 50 mls/hr 06/25/20 08:32 07/01/20 12:35 Normal Saline 0.9% IV Not Given .Q20H JULIÁN Insulin Glargine 15 units/ 0.15 mls @ 0 mls/hr 06/30/20 09:00 07/01/20 09:30 Miscellaneous Medication SC 0.15 mls QAM JULIÁN Administration Insulin Glargine 15 units/ 0.15 mls @ 0 mls/hr 06/30/20 21:00 06/30/20 21:21 Miscellaneous Medication SC 0.15 mls HS JULIÁN Administration Insulin Human Lispro 0 units 06/24/20 09:00 07/01/20 06:31 Humalog 300 Units/3 Ml Vial SC 6 units .AGGRESSIVE SLIDING PRN Administration Aggressive Correctional Scale Insulin Human Lispro 0 units 06/24/20 21:34 06/30/20 21:22 Humalog 300 Units/3 Ml Vial SC 3 unit .BEDTIME SLIDING SC PRN Administration Bedtime Correctional Scale Lidocaine 1 patch 06/27/20 22:00 06/30/20 21:24 Lidocaine 5% Patch TD 1 patch 2200 JULIÁN Administration Melatonin 6 mg 06/30/20 23:08 06/30/20 23:24 Melatonin 3 Mg Tab PO 6 mg HS PRN Administration Insomnia Miscellaneous Medication 1 each 06/28/20 10:00 07/01/20 09:31 Lidocaine Patch Removal 1 Each TOP 1 each 1000 JULIÁN Administration Ondansetron HCl 4 mg 06/23/20 21:09 06/29/20 13:18 Ondansetron Pf 4 Mg/2 Ml Vial IVP 4 mg Q6H PRN Administration Nausea/Vomiting use 1st Pantoprazole Sodium 40 mg 06/29/20 09:00 07/01/20 09:30 Pantoprazole 40 Mg Tab PO 40 mg DAILY JULIÁN Administration Polyethylene Glycol 17 gm 06/24/20 09:00 07/01/20 09:29 Polyethylene Glycol 3350 17 Gm Packet PO 17 gm DAILY JULIÁN Administration Tramadol HCl 50 mg 06/26/20 14:52 07/01/20 01:14 Tramadol Hcl 50 Mg Tab PO 50 mg Q6H PRN Administration Moderate Pain (4-6) Zinc Sulfate 220 mg 06/25/20 09:00 07/01/20 09:29 Zinc Sulfate 220 Mg Cap PO 220 mg DAILY JULIÁN Administration Hospitalist Exam Vitals: Vital Signs (12 hours) Temp Pulse Resp BP BP BP Pulse Ox 07/01/20 16:13 96.8 F L 91 20 142/76 H 92 L 07/01/20 12:02 96.7 F L 85 18 126/69 95 07/01/20 10:38 138/79 138/76 07/01/20 09:45 97.6 F 89 20 135/71 92 L Weight Admit Weight 199 lb 8.293 oz Weight 199 lb 8.293 oz General Appearance: awake alert Eye: anicteric sclera ENT: moist mucosa Neck: supple Heart: RRR Respiratory: CTAB Gastrointestinal: soft, non-tender Skin: no rashes Psychiatric: normal affect, normal behavior Hosp A/P - Plan -Assessment (1) Acute CVA (cerebrovascular accident) Code(s): I63.9 - CEREBRAL INFARCTION, UNSPECIFIED Status: Acute (2) Bacteremia Code(s): R78.81 - BACTEREMIA Status: Acute (3) DM type 2 (diabetes mellitus, type 2) Status: Acute (4) Myositis Code(s): M60.9 - MYOSITIS, UNSPECIFIED Status: Acute (5) Osteomyelitis of toe Code(s): M86.9 - OSTEOMYELITIS, UNSPECIFIED Status: Acute (6) Pneumonia due to COVID-19 virus Code(s): U07.1 - COVID-19; J12.82 - PNEUMONIA DUE TO CORONAVIRUS DISEASE 2019 Status: Acute (7) Acute respiratory failure due to COVID-19 Code(s): U07.1 - COVID-19; J96.00 - ACUTE RESPIRATORY FAILURE, UNSP W HYPOXIA OR HYPERCAPNIA Status: Acute - Plan Strep bacterememia --Continue clindamycin and penicillin G. --2D echo pending. --rpt blood culture no growth so far Acute CVA - likely d/t septic emboli --Cont ASA/Statin. tight glycemic control --Cont PT Sepsis, POA, likely secondary to left great toe osteomyelitis, s/p amputation on 06/26/20 --Continue penicillin G and clindamycin Left great toe osteomyelitis --Continue penicillin G and clindamycin --s/p amputation on 06/26 - wound vac in place. cont routine post cares. Follow up with Dr. Chiang for post op follow up kina 2-3 wks Acute hypoxic respiratory failure secondary to Covid 19 infection - unclear onset of symptoms, but weakness started about a week ago --continue O2 supplement. Vitamin C/D/zinc, and Decadron --s/p convalescent plasma. --cont Lovenox for DVT ppx Uncontrolled diabetes with DKA --Continue insulin sliding scale Generalized weakness - much improved. may have component of myositis HTN, essential --Continue Norvasc
[2020-07-01] MEDS ORDERED: Digoxin 0.5 MG/2 ML AMP SLOW IVP SCH ×2 (18:45→19:15)
[2020-07-01] MEDS: Enoxaparin Sodium 40 MG/0.4 ML SYRINGE SC SCH (20:12)
[2020-07-01] MEDS: Atorvastatin Calcium 40 MG TAB PO SCH (20:13)
[2020-07-01] MEDS: Lidocaine 5% Patch TD SCH (20:13)
[2020-07-01 21:32] LABS: ALT (SGPT) 17 U/L (8-55); AST (SGOT) 26 U/L (5-34); Albumin 1.8 g/dL (3.5-5.0); Alkaline Phosphatase 120 U/L (40-110); Bilirubin, Direct 0.3 mg/dL (0.1-0.3); Bilirubin, Total 0.4 mg/dL (0.2-1.2); Potassium 4.9 mmol/L (3.5-5.1); Protein, Total 6.4 g/dL (6.0-8.3)
[2020-07-01] MEDS ORDERED: Amiodarone 150 MG in Dextrose 5% in Water 100 ML IVPB SCH (21:45)
[2020-07-02] MEDS: Penicillin G Potassium 4 MILL.UNITS in Sodium Chloride 0.9% 100 ML IVPB SCH ×6 (01:04→20:44)
[2020-07-02] MEDS: Amiodarone 450 MG in Dextrose 5% in Water 250 ML IVPB SCH ×2 (05:14→21:56)
[2020-07-02] MEDS: Clindamycin/D5W 900 MG in Premix Bag 1 BAG IVPB SCH ×3 (05:14→20:46)
[2020-07-02] MEDS: HYDROcodone/Acetaminophen 5/325 mg Tablet PO PRN ×2 (05:20→12:17)
[2020-07-02] MEDS ORDERED: Magnesium 2 GM/50 ML 2 GM in Premix Bag 1 BAG IVPB SCH (07:30)
[2020-07-02] MEDS: Insulin Glargine 15 UNITS in Pre-Filled Syringe 1 EACH SC SCH ×2 (09:37→20:45)
[2020-07-02] MEDS: Polyethylene Glycol 3350 17 GM Packet PO SCH (09:38)
[2020-07-02] MEDS: Dexamethasone 4 mg/ml Vial SLOW IVP SCH (09:44)
[2020-07-02] MEDS: Cholecalciferol (Vitamin D3) 400 UNITS TAB PO SCH (09:45)
[2020-07-02] MEDS: Aspirin 81 mg Enteric Coated Tablet PO SCH (09:45)
[2020-07-02] MEDS: Amlodipine 5 MG TAB PO SCH (09:45)
[2020-07-02] MEDS: Transdermal Patch Removal TOP SCH (09:45)
[2020-07-02] MEDS: Ascorbic Acid 500 mg Chewable Tablet PO SCH (09:45)
[2020-07-02] MEDS: Zinc Sulfate 220 MG CAP PO SCH (09:45)
--- NOTE | 2020-07-02 11:58 | PDOC.HOSPP ---
- Subjective Encounter Date: 07/02/20 Encounter Time: 07:00 Subjective: Patient seen in follow-up for acute ischemic cerebrovascular accident. He denies chest pain or shortness of breath. - Objective Vital Signs & Weight: Vital Signs (12 hours) Temp Pulse Resp BP Pulse Ox 07/02/20 09:45 84 07/02/20 07:40 97.9 F 84 20 150/71 H 99 07/02/20 04:00 97.6 F 88 20 144/78 H 94 L 07/02/20 00:00 94 L Weight Admit Weight 199 lb 8.293 oz Weight 199 lb 8.293 oz I&O: 07/01/20 07/02/20 07/03/20 06:59 06:59 06:59 Intake Total 2894 2480 537 Output Total 2100 2200 Balance 794 280 537 Result Diagrams: 06/29/20 04:52 07/01/20 20:54 Additional Labs: Accuchecks 07/02/20 07/02/20 07/01/20 10:48 05:00 16:04 POC Glucose 108 H 107 H 212 H Labs and MAR reviewed by me EKG Reviewed by me: Yes (Normal sinus rhythm on telemetry) Hospitalist ROS - Review of Systems Genitourinary: denies: dysuria, frequency, incontinence, hematuria, retention Musculoskeletal: reports: neck pain Skin: denies: rash, lesions, jose, bruising - Medication Medications: Active Medications Generic Name Dose Route Start Last Admin Trade Name Freq PRN Reason Stop Dose Admin Acetaminophen 1,000 mg 06/26/20 14:52 06/30/20 21:36 Acetaminophen 500 Mg Tab PO 1,000 mg Q6H PRN Administration Mild Pain (1-3) Hydrocodone Bitart/Acetaminophen 1 tab 06/23/20 21:09 07/02/20 05:20 Hydrocodone/Acetaminophen 5/325 Mg Tablet PO 1 tab Q4H PRN Administration Moderate Pain (4-6) Amlodipine Besylate 5 mg 07/01/20 09:00 07/02/20 09:45 Amlodipine 5 Mg Tab PO 5 mg DAILY JULIÁN Administration Ascorbic Acid 1,000 mg 06/25/20 09:00 07/02/20 09:45 Ascorbic Acid 500 Mg Chewable Tablet PO 1,000 mg DAILY JULIÁN Administration Aspirin 81 mg 06/25/20 09:00 07/02/20 09:45 Aspirin 81 Mg Enteric Coated Tablet PO 81 mg DAILY JULIÁN Administration Atorvastatin Calcium 40 mg 06/24/20 21:00 07/01/20 20:13 Atorvastatin Calcium 40 Mg Tab PO 40 mg HS JULIÁN Administration Cholecalciferol 400 units 06/25/20 09:00 07/02/20 09:45 Cholecalciferol (Vitamin D3) 400 Units Tab PO 400 units DAILY JULIÁN Administration Dexamethasone 6 mg 06/28/20 09:00 07/02/20 09:44 Dexamethasone 4 Mg/Ml Vial SLOW IVP 6 mg DAILY JULIÁN Administration Enoxaparin Sodium 40 mg 06/24/20 21:00 07/01/20 20:12 Enoxaparin Sodium 40 Mg/0.4 Ml Syringe SC 40 mg 2100 JULIÁN Administration Penicillin G Potassium 4 mill. 100 mls @ 200 mls/hr 06/24/20 21:00 07/02/20 09:34 units/ Sodium Chloride IVPB 100 mls Q4HR JULIÁN Administration Clindamycin Phosphate/Dextrose 50 mls @ 100 mls/hr 06/24/20 22:00 07/02/20 05:14 900 mg/ Device IVPB 50 mls Q8HR JULIÁN Administration Sodium Chloride 1,000 mls @ 50 mls/hr 06/25/20 08:32 07/01/20 20:12 Normal Saline 0.9% IV 1,000 mls .Q20H JULIÁN Administration Insulin Glargine 15 units/ 0.15 mls @ 0 mls/hr 06/30/20 09:00 07/02/20 09:37 Miscellaneous Medication SC 0.15 mls QAM JULIÁN Administration Insulin Glargine 15 units/ 0.15 mls @ 0 mls/hr 06/30/20 21:00 07/01/20 20:11 Miscellaneous Medication SC 0.15 mls HS JULIÁN Administration Amiodarone HCl 450 mg/ 259 mls @ 0 mls/hr 07/01/20 20:00 07/02/20 05:14 Dextrose/Water IVPB 259 mls INF JULIÁN Administration Protocol Per Protocol Insulin Human Lispro 0 units 06/24/20 09:00 07/01/20 17:24 Humalog 300 Units/3 Ml Vial SC 6 units .AGGRESSIVE SLIDING PRN Administration Aggressive Correctional Scale Insulin Human Lispro 0 units 06/24/20 21:34 07/01/20 20:11 Humalog 300 Units/3 Ml Vial SC 3 unit .BEDTIME SLIDING SC PRN Administration Bedtime Correctional Scale Lidocaine 1 patch 06/27/20 22:00 07/01/20 20:13 Lidocaine 5% Patch TD 1 patch 2200 JULIÁN Administration Melatonin 6 mg 06/30/20 23:08 06/30/20 23:24 Melatonin 3 Mg Tab PO 6 mg HS PRN Administration Insomnia Miscellaneous Medication 1 each 06/28/20 10:00 07/02/20 09:45 Lidocaine Patch Removal 1 Each TOP 1 each 1000 JULIÁN Administration Ondansetron HCl 4 mg 06/23/20 21:09 06/29/20 13:18 Ondansetron Pf 4 Mg/2 Ml Vial IVP 4 mg Q6H PRN Administration Nausea/Vomiting use 1st Pantoprazole Sodium 40 mg 06/29/20 09:00 07/02/20 09:45 Pantoprazole 40 Mg Tab PO 40 mg DAILY JULIÁN Administration Polyethylene Glycol 17 gm 06/24/20 09:00 07/02/20 09:38 Polyethylene Glycol 3350 17 Gm Packet PO 17 gm DAILY JULIÁN Administration Tramadol HCl 50 mg 06/26/20 14:52 07/01/20 01:14 Tramadol Hcl 50 Mg Tab PO 50 mg Q6H PRN Administration Moderate Pain (4-6) Zinc Sulfate 220 mg 06/25/20 09:00 07/02/20 09:45 Zinc Sulfate 220 Mg Cap PO 220 mg DAILY JULIÁN Administration Hospitalist Exam Vitals: Vital Signs (12 hours) Temp Pulse Resp BP Pulse Ox 07/02/20 09:45 84 07/02/20 07:40 97.9 F 84 20 150/71 H 99 07/02/20 04:00 97.6 F 88 20 144/78 H 94 L 07/02/20 00:00 94 L Weight Admit Weight 199 lb 8.293 oz Weight 199 lb 8.293 oz General Appearance: awake alert Eye: anicteric sclera ENT: moist mucosa Neck: supple Heart: RRR Respiratory: CTAB, no wheezes Gastrointestinal: soft, non-tender Skin: normal turgor, no rashes Psychiatric: normal affect, normal behavior Hosp A/P - Plan -Assessment (1) Acute CVA (cerebrovascular accident) Code(s): I63.9 - CEREBRAL INFARCTION, UNSPECIFIED Status: Acute (2) Bacteremia Code(s): R78.81 - BACTEREMIA Status: Acute (3) DM type 2 (diabetes mellitus, type 2) Status: Chronic (4) Myositis Code(s): M60.9 - MYOSITIS, UNSPECIFIED Status: Acute (5) Osteomyelitis of toe Code(s): M86.9 - OSTEOMYELITIS, UNSPECIFIED Status: Acute (6) Pneumonia due to COVID-19 virus Code(s): U07.1 - COVID-19; J12.82 - PNEUMONIA DUE TO CORONAVIRUS DISEASE 2018 Status: Acute (7) Acute respiratory failure due to COVID-19 Code(s): U07.1 - COVID-19; J96.00 - ACUTE RESPIRATORY FAILURE, UNSP W HYPOXIA OR HYPERCAPNIA Status: Acute (8) a. fib with RVR Status: Acute - Plan Strep bacterememia --Patient is on clindamycin and penicillin G. --rpt blood culture no growth so far Acute CVA - likely d/t septic emboli --Cont ASA/Statin. --Cont PT Sepsis, POA, likely secondary to left great toe osteomyelitis, s/p amputation on 06/26/20 --continue penicillin G and clindamycin Left great toe osteomyelitis --Continue penicillin G and clindamycin --s/p amputation on 06/26 - wound vac in place. cont routine post cares. Follow up with Dr. Chiang for post op follow up kina 2-3 wks Acute hypoxic respiratory failure secondary to Covid 19 infection - unclear onset of symptoms, but weakness started about a week ago --continue O2 supplement. --Vitamin C/D/zinc, and Decadron --s/p convalescent plasma. --cont Lovenox for DVT ppx Uncontrolled diabetes with DKA --Continue insulin sliding scale Generalized weakness - much improved. HTN, essential --Continue Norvasc A. fib with RVR --Patient had an episode of A. fib with RVR yesterday, now resolved. Currently on amiodarone drip.
--- NOTE | 2020-07-02 13:28 | CON ---
DATE OF CONSULTATION: HISTORY OF PRESENT ILLNESS: Av Jett is a 59-year-old male, who has been followed by Dr. Bourgeois since February 1998. He has had a long history of atypical chest discomfort with negative noninvasive studies. He was last seen in May 2016. He most recently has been followed for severe mitral valve prolapse and severe mitral regurgitation. Most recent echo in May 2016 revealed ejection fraction of 60% to 65%, normal left atrial size, myxomatous degeneration of the mitral valve, severe mitral valve prolapse, severe mitral regurgitation and mild tricuspid regurgitation. He now is admitted for back and neck pain and has been found to have multiple problems. He is COVID positive and has been treated with Decadron. He apparently has toe osteomyelitis, and blood cultures have been positive for group A strep. He also has had leg weakness and underwent brain MRI which revealed numerous small and tiny acute bilateral cerebral infarctions and watershed zone between the middle cerebral artery and the anterior cerebral artery territories. There are numerous small bilateral cerebellar acute infarcts. Cerebral vessel CTA revealed mild stenosis at the origin of both vertebral arteries, but otherwise unremarkable. [place] of Shankar angio was unremarkable. He then had an episode of atrial fibrillation last night with fast ventricular response with EKG showing a rate of 153 per minute. He was treated with digoxin 0.5 mg IV, then 0.25 mg IV and placed on amiodarone drip. He has since converted back to sinus rhythm. At the present time, he has no complaints. PAST MEDICAL HISTORY: Severe mitral regurgitation, severe mitral valve prolapse on echocardiograms in the past. SOCIAL HISTORY: He does not smoke or drink. FAMILY HISTORY: Negative for coronary artery disease. REVIEW OF SYSTEMS: Otherwise unremarkable. PHYSICAL EXAMINATION: VITAL SIGNS: Blood pressure 150/71, pulse of 84. Physical exam is deferred due to COVID. LABORATORY DATA: Hemoglobin 11.3, hematocrit 35.8, white count 08515, platelets 217,000. On June 26, pH was 7.30, pCO2 of 62.2, PO2 of 91.3. TSH is normal. Sodium 132, potassium 4.6, chloride 94, carbon dioxide 36, BUN 16, creatinine 0.62. IMPRESSION: 1. New onset atrial fibrillation with heart rates in the 150s, which is converted with intravenous digoxin and intravenous amiodarone. 2. Multiple small bilateral cerebral infarcts seen on MRI. 3. COVID positive. 4. Beta-hemolytic strep positive. Echocardiogram certainly needs to be repeated once he is out of COVID protocol due to his mitral valvular disease. 5. History of severe mitral valve prolapse and severe mitral regurgitation. PLAN: The patient will be maintained on intravenous amiodarone at this time and will be transitioned to p.o. in 1 or 2 days. Also with finding of bilateral infarcts and new onset atrial fibrillation, I will start him on Lovenox 1 mg/kg b.i.d. and this can later be transitioned to oral medications. Job ID: [id number] [facility] HOSPITALGrace
[2020-07-02 15:43] LABS: Hemoglobin 11.7 g/dL (14.0-18.0)
[2020-07-02] MEDS: HumaLOG 300 UNITS/3 ML VIAL SC PRN ×2 (17:02→21:06)
--- NOTE | 2020-07-02 18:12 | PRG ---
DATE OF SERVICE: 07/02/2020 SUBJECTIVE: Sitting by the bedside. He is able to move his neck better. Still some pain. He is not coughing much. Had some epistaxis and he has a piece of paper stuck in his right nostril. He is using a back profile grinder technician because of pruritus in his back. No abdominal pain. His temperature max 98.1, saturating 100% on room air, which is a significant improvement. For some reason, he was 100% on 4 L, so it was hard to believe that he got better so quickly. I do not know if there is a mistake in this documentation here. OBJECTIVE: VITAL SIGNS: BP 130/73, and he is voiding in the urinal. GENERAL: He appears in no distress, oriented. HEENT: Ocular movements conjugate. He has a piece of paper stuck in his right nostril to contain epistaxis. LUNGS: With diminished breath sounds at the bases, but no obvious crackles or wheezing. That loud murmur is not as loud when he is sitting up. I bet you this is an aortic murmur with decrease in the stroke volume. There is a decrease in the intensity of the murmur. ABDOMEN: [id number] distended, but not tender. No ascites. The left negative pressure dressing. LABORATORY DATA: White cell count last one from the 4th was 13.5, hemoglobin 11.7, platelets 217, and chemistry with a creatinine of 0.62. No new microbiology data. The repeat blood cultures are negative [address] Gomes evaluated the patient today, and his assessment was new onset atrial fibrillation, which converted with amiodarone and digoxin, bilateral infarcts, COVID positive, beta-hemolytic strep positive, and he needs a repeat echocardiogram, so that is pending. He was placed on Lovenox as well. ASSESSMENT AND DISCUSSION: Type 2 diabetes, group A strep invasive infection with bacteremia, myositis, right sternoclavicular joint infection, loud murmur, and there appears to be embolic phenomena in the MRI of the brain, so concern for endocarditis is present. His COVID seems to be improving, and we will transition him to Rocephin to simplify treatment. Discontinue the remainder of antimicrobials. We need to get an echo before he is discharged to another place. Job ID: [id number]
[2020-07-02] MEDS: Enoxaparin Sodium 100 MG/ML SYRINGE SC SCH (20:45)
[2020-07-02] MEDS: Atorvastatin Calcium 40 MG TAB PO SCH (20:45)
[2020-07-02] MEDS: Lidocaine 5% Patch TD SCH (20:46)
[2020-07-02] MEDS: Sodium Chloride 0.9% 1,000 ML IV SCH (21:57)
[2020-07-03] MEDS: Penicillin G Potassium 4 MILL.UNITS in Sodium Chloride 0.9% 100 ML IVPB SCH ×6 (01:01→20:54)
[2020-07-03] MEDS: traMADol HCl 50 MG TAB PO PRN (02:30)
[2020-07-03] MEDS: Sodium Chloride 0.9% 1,000 ML IV SCH ×2 (05:17→17:12)
[2020-07-03] MEDS: Clindamycin/D5W 900 MG in Premix Bag 1 BAG IVPB SCH ×3 (05:17→20:54)
[2020-07-03] MEDS ORDERED: Magnesium 2 GM/50 ML 2 GM in Premix Bag 1 BAG IVPB SCH (09:00)
[2020-07-03] MEDS: Insulin Glargine 15 UNITS in Pre-Filled Syringe 1 EACH SC SCH ×2 (09:16→20:53)
[2020-07-03] MEDS: Polyethylene Glycol 3350 17 GM Packet PO SCH (09:17)
[2020-07-03] MEDS: Dexamethasone 4 mg/ml Vial SLOW IVP SCH (09:22)
[2020-07-03] MEDS: Enoxaparin Sodium 100 MG/ML SYRINGE SC SCH ×2 (09:22→20:52)
[2020-07-03] MEDS: Amlodipine 5 MG TAB PO SCH (09:27)
[2020-07-03] MEDS: Zinc Sulfate 220 MG CAP PO SCH (09:28)
[2020-07-03] MEDS: Cholecalciferol (Vitamin D3) 400 UNITS TAB PO SCH (09:28)
[2020-07-03] MEDS: Aspirin 81 mg Enteric Coated Tablet PO SCH (09:28)
[2020-07-03] MEDS: Ascorbic Acid 500 mg Chewable Tablet PO SCH (09:28)
[2020-07-03] MEDS ORDERED: Dronedarone HCl 400 MG TAB PO SCH (09:30)
[2020-07-03] MEDS: Transdermal Patch Removal TOP SCH (09:38)
[2020-07-03 11:40] LABS: Anion Gap 12 mmol/L (10-20); BUN (Urea Nitrogen) 14 mg/dL (8.4-25.7); Calc. Creatinine Clearance 162 mL/min (70-130); Carbon Dioxide 30 mmol/L (22-29); Chloride 94 mmol/L (98-107); Glucose 152 mg/dL (70-105); Potassium 4.9 mmol/L (3.5-5.1); Sodium 131 mmol/L (136-145)
[2020-07-03] MEDS: Dronedarone HCl 400 MG TAB PO SCH (17:12)
[2020-07-03] MEDS: HumaLOG 300 UNITS/3 ML VIAL SC PRN ×2 (17:40→20:55)
--- NOTE | 2020-07-03 18:43 | PDOC.HOSPP ---
- Subjective Encounter Date: 07/03/20 Encounter Time: 13:30 Subjective: Patient seen in follow-up for CVA. Denies any new complaints. - Objective Vital Signs & Weight: Vital Signs (12 hours) Temp Pulse Resp BP Pulse Ox 07/03/20 17:05 97.5 F L 90 20 146/70 H 92 L 07/03/20 11:40 97.5 F L 86 20 132/68 95 07/03/20 09:27 85 07/03/20 07:20 98.3 F 85 20 144/85 H 92 L Weight Admit Weight 199 lb 8.293 oz Weight 199 lb 8.293 oz I&O: 07/02/20 07/03/20 07/04/20 06:59 06:59 06:59 Intake Total 2480 4074 1200 Output Total 2200 2050 400 Balance 280 2024 800 Result Diagrams: 07/02/20 15:30 07/03/20 11:07 Additional Labs: Accuchecks 07/03/20 07/03/20 07/03/20 16:26 10:27 05:16 POC Glucose 264 H 140 H 144 H 07/02/20 07/01/20 20:50 19:39 POC Glucose 242 H 266 H I reviewed patient's labs and MAR EKG Reviewed by me: Yes (Normal sinus rhythm on telemetry) Hospitalist ROS - Review of Systems Cardiovascular: denies: chest pain, palpitations, orthopnea, paroxysmal noc. dyspnea Genitourinary: denies: dysuria, frequency, incontinence, hematuria, retention - Medication Medications: Active Medications Generic Name Dose Route Start Last Admin Trade Name Freq PRN Reason Stop Dose Admin Acetaminophen 1,000 mg 06/26/20 14:52 06/30/20 21:36 Acetaminophen 500 Mg Tab PO 1,000 mg Q6H PRN Administration Mild Pain (1-3) Hydrocodone Bitart/Acetaminophen 1 tab 06/23/20 21:09 07/02/20 12:17 Hydrocodone/Acetaminophen 5/325 Mg Tablet PO 1 tab Q4H PRN Administration Moderate Pain (4-6) Amlodipine Besylate 5 mg 07/01/20 09:00 07/03/20 09:27 Amlodipine 5 Mg Tab PO 5 mg DAILY JULIÁN Administration Ascorbic Acid 1,000 mg 06/25/20 09:00 07/03/20 09:28 Ascorbic Acid 500 Mg Chewable Tablet PO 1,000 mg DAILY JULIÁN Administration Aspirin 81 mg 06/25/20 09:00 07/03/20 09:28 Aspirin 81 Mg Enteric Coated Tablet PO 81 mg DAILY JULIÁN Administration Atorvastatin Calcium 40 mg 06/24/20 21:00 07/02/20 20:45 Atorvastatin Calcium 40 Mg Tab PO 40 mg HS JULIÁN Administration Cholecalciferol 400 units 06/25/20 09:00 07/03/20 09:28 Cholecalciferol (Vitamin D3) 400 Units Tab PO 400 units DAILY JULIÁN Administration Dexamethasone 6 mg 06/28/20 09:00 07/03/20 09:22 Dexamethasone 4 Mg/Ml Vial SLOW IVP 6 mg DAILY JULIÁN Administration Dronedarone 400 mg 07/03/20 17:00 07/03/20 17:12 Dronedarone Hcl 400 Mg Tab PO 400 mg BID-WM JULIÁN Administration Enoxaparin Sodium 90 mg 07/02/20 21:00 07/03/20 09:22 Enoxaparin Sodium 100 Mg/Ml Syringe SC 90 mg 0900,2100 JULIÁN Administration Penicillin G Potassium 4 mill. 100 mls @ 200 mls/hr 06/24/20 21:00 07/03/20 17:12 units/ Sodium Chloride IVPB 100 mls Q4HR JULIÁN Administration Clindamycin Phosphate/Dextrose 50 mls @ 100 mls/hr 06/24/20 22:00 07/03/20 12:32 900 mg/ Device IVPB 50 mls Q8HR JULIÁN Administration Sodium Chloride 1,000 mls @ 50 mls/hr 06/25/20 08:32 07/03/20 17:12 Normal Saline 0.9% IV 1,000 mls .Q20H JULIÁN Administration Insulin Glargine 15 units/ 0.15 mls @ 0 mls/hr 06/30/20 09:00 07/03/20 09:16 Miscellaneous Medication SC 0.15 mls QAM JULIÁN Administration Insulin Glargine 15 units/ 0.15 mls @ 0 mls/hr 06/30/20 21:00 07/02/20 20:45 Miscellaneous Medication SC 0.15 mls HS JULIÁN Administration Insulin Human Lispro 0 units 06/24/20 09:00 07/03/20 17:40 Humalog 300 Units/3 Ml Vial SC 9 units .AGGRESSIVE SLIDING PRN Administration Aggressive Correctional Scale Insulin Human Lispro 0 units 06/24/20 21:34 07/02/20 21:06 Humalog 300 Units/3 Ml Vial SC 2 unit .BEDTIME SLIDING SC PRN Administration Bedtime Correctional Scale Lidocaine 1 patch 06/27/20 22:00 07/02/20 20:46 Lidocaine 5% Patch TD 1 patch 2200 JULIÁN Administration Melatonin 6 mg 06/30/20 23:08 06/30/20 23:24 Melatonin 3 Mg Tab PO 6 mg HS PRN Administration Insomnia Miscellaneous Medication 1 each 06/28/20 10:00 07/03/20 09:38 Lidocaine Patch Removal 1 Each TOP 1 each 1000 JULIÁN Administration Ondansetron HCl 4 mg 06/23/20 21:09 06/29/20 13:18 Ondansetron Pf 4 Mg/2 Ml Vial IVP 4 mg Q6H PRN Administration Nausea/Vomiting use 1st Pantoprazole Sodium 40 mg 06/29/20 09:00 07/03/20 09:28 Pantoprazole 40 Mg Tab PO 40 mg DAILY JULIÁN Administration Polyethylene Glycol 17 gm 06/24/20 09:00 07/03/20 09:17 Polyethylene Glycol 3350 17 Gm Packet PO 17 gm DAILY JULIÁN Administration Sodium Chloride 10 ml 07/03/20 09:00 07/03/20 09:28 Flush - Normal Saline 10 Ml Syringe IVF 10 ml Q12HR JULIÁN Administration Tramadol HCl 50 mg 06/26/20 14:52 07/03/20 02:30 Tramadol Hcl 50 Mg Tab PO 50 mg Q6H PRN Administration Moderate Pain (4-6) Zinc Sulfate 220 mg 06/25/20 09:00 07/03/20 09:28 Zinc Sulfate 220 Mg Cap PO 220 mg DAILY JULIÁN Administration Hospitalist Exam Vitals: Vital Signs (12 hours) Temp Pulse Resp BP Pulse Ox 07/03/20 17:05 97.5 F L 90 20 146/70 H 92 L 07/03/20 11:40 97.5 F L 86 20 132/68 95 07/03/20 09:27 85 07/03/20 07:20 98.3 F 85 20 144/85 H 92 L Weight Admit Weight 199 lb 8.293 oz Weight 199 lb 8.293 oz General Appearance: awake alert Eye: anicteric sclera ENT: moist mucosa Neck: supple Heart: RRR Respiratory: CTAB Gastrointestinal: soft, non-tender Extremities - other findings: Status post left foot surgery, wound VAC Skin: no rashes Psychiatric: normal affect, normal behavior Hosp A/P - Plan -Assessment (1) Acute CVA (cerebrovascular accident) Code(s): I63.9 - CEREBRAL INFARCTION, UNSPECIFIED Status: Acute (2) Bacteremia Code(s): R78.81 - BACTEREMIA Status: Acute (3) DM type 2 (diabetes mellitus, type 2) Status: Chronic (4) Myositis Code(s): M60.9 - MYOSITIS, UNSPECIFIED Status: Acute (5) Osteomyelitis of toe Code(s): M86.9 - OSTEOMYELITIS, UNSPECIFIED Status: Acute (6) Pneumonia due to COVID-19 virus Code(s): U07.1 - COVID-19; J12.82 - PNEUMONIA DUE TO CORONAVIRUS DISEASE 2018 Status: Acute (7) Acute respiratory failure due to COVID-19 Code(s): U07.1 - COVID-19; J96.00 - ACUTE RESPIRATORY FAILURE, UNSP W HYPOXIA OR HYPERCAPNIA Status: Acute (8) a. fib with RVR Status: Acute - Plan Strep bacterememia --Continue clindamycin and penicillin G. --rpt blood culture no growth so far Acute CVA - likely d/t septic emboli --Continues on ASA/Statin. --Cont PT Sepsis, POA, likely secondary to left great toe osteomyelitis, s/p amputation on 06/26/20 --continue penicillin G and clindamycin Left great toe osteomyelitis --Continue penicillin G and clindamycin --s/p amputation on 06/26 - wound vac in place. cont routine post cares. -Follow up with Dr. Chiang for post op follow up 2-3 wks Acute hypoxic respiratory failure secondary to Covid 19 infection - unclear onset of symptoms, but weakness started about a week ago --continue O2 supplement. --Vitamin C/D/zinc, and Decadron --s/p convalescent plasma. -- Lovenox for DVT ppx Uncontrolled diabetes with DKA --Continue insulin sliding scale Generalized weakness - much improved. HTN, essential --Continue Norvasc A. fib with RVR --Patient had an episode of A. fib with RVR 2 days ago, now resolved. Amiodarone drip has been discontinued, patient has been started on Multaq.
[2020-07-03] MEDS: Atorvastatin Calcium 40 MG TAB PO SCH (20:53)
[2020-07-03] MEDS: Lidocaine 5% Patch TD SCH (20:54)
[2020-07-04] MEDS: Penicillin G Potassium 4 MILL.UNITS in Sodium Chloride 0.9% 100 ML IVPB SCH ×6 (01:00→21:55)
[2020-07-04] MEDS: Clindamycin/D5W 900 MG in Premix Bag 1 BAG IVPB SCH ×3 (05:48→22:45)
[2020-07-04] MEDS: Dronedarone HCl 400 MG TAB PO SCH ×2 (08:10→16:30)
[2020-07-04] MEDS: Amlodipine 5 MG TAB PO SCH (08:11)
[2020-07-04] MEDS: Cholecalciferol (Vitamin D3) 400 UNITS TAB PO SCH (08:11)
[2020-07-04] MEDS: Ascorbic Acid 500 mg Chewable Tablet PO SCH (08:11)
[2020-07-04] MEDS: Zinc Sulfate 220 MG CAP PO SCH (08:11)
[2020-07-04] MEDS: Dexamethasone 4 mg/ml Vial SLOW IVP SCH (08:12)
[2020-07-04] MEDS: Aspirin 81 mg Enteric Coated Tablet PO SCH (08:12)
[2020-07-04] MEDS: Polyethylene Glycol 3350 17 GM Packet PO SCH (08:13)
[2020-07-04] MEDS: Insulin Glargine 15 UNITS in Pre-Filled Syringe 1 EACH SC SCH ×2 (09:51→21:55)
[2020-07-04] MEDS: Transdermal Patch Removal TOP SCH (09:52)
--- NOTE | 2020-07-04 16:22 | PDOC.HOSPP ---
- Subjective Encounter Date: 07/04/20 Encounter Time: 07:30 Subjective: Patient seen for follow-up regarding CVA. No new complaints. - Objective Vital Signs & Weight: Vital Signs (12 hours) Temp Pulse Resp BP Pulse Ox 07/04/20 15:30 98.1 F 85 18 140/69 98 07/04/20 12:00 97.9 F 84 20 144/63 H 96 07/04/20 08:11 86 Weight Admit Weight 199 lb 8.293 oz Weight 199 lb 8.293 oz I&O: 07/03/20 07/04/20 07/05/20 06:59 06:59 06:59 Intake Total 4074 2450 118 Output Total 2049 2024 Balance 2023 425 118 Result Diagrams: 07/02/20 15:30 07/03/20 11:07 Additional Labs: Accuchecks 07/04/20 07/04/20 07/03/20 11:02 05:19 19:44 POC Glucose 88 98 251 H 07/03/20 16:26 POC Glucose 264 H Labs and MAR reviewed by me EKG Reviewed by me: Yes (Telemetry shows normal sinus rhythm) Hospitalist ROS - Review of Systems Cardiovascular: denies: chest pain, palpitations, orthopnea, paroxysmal noc. dyspnea, edema, light headedness Gastrointestinal: denies: nausea, vomiting, abdominal pain, diarrhea, constipation, melena, hematochezia - Medication Medications: Active Medications Generic Name Dose Route Start Last Admin Trade Name Freq PRN Reason Stop Dose Admin Acetaminophen 1,000 mg 06/26/20 14:52 06/30/20 21:36 Acetaminophen 500 Mg Tab PO 1,000 mg Q6H PRN Administration Mild Pain (1-3) Amlodipine Besylate 5 mg 07/01/20 09:00 07/04/20 08:11 Amlodipine 5 Mg Tab PO 5 mg DAILY JULIÁN Administration Ascorbic Acid 1,000 mg 06/25/20 09:00 07/04/20 08:11 Ascorbic Acid 500 Mg Chewable Tablet PO 1,000 mg DAILY JULIÁN Administration Aspirin 81 mg 06/25/20 09:00 07/04/20 08:12 Aspirin 81 Mg Enteric Coated Tablet PO 81 mg DAILY JULIÁN Administration Atorvastatin Calcium 40 mg 06/24/20 21:00 07/03/20 20:53 Atorvastatin Calcium 40 Mg Tab PO 40 mg HS JULIÁN Administration Cholecalciferol 400 units 06/25/20 09:00 07/04/20 08:11 Cholecalciferol (Vitamin D3) 400 Units Tab PO 400 units DAILY JULIÁN Administration Dexamethasone 6 mg 06/28/20 09:00 07/04/20 08:12 Dexamethasone 4 Mg/Ml Vial SLOW IVP 6 mg DAILY JULIÁN Administration Dronedarone 400 mg 07/03/20 17:00 07/04/20 08:10 Dronedarone Hcl 400 Mg Tab PO 400 mg BID-WM JULIÁN Administration Penicillin G Potassium 4 mill. 100 mls @ 200 mls/hr 06/24/20 21:00 07/04/20 09:51 units/ Sodium Chloride IVPB 100 mls Q4HR JULIÁN Administration Clindamycin Phosphate/Dextrose 50 mls @ 100 mls/hr 06/24/20 22:00 07/04/20 15:24 900 mg/ Device IVPB 50 mls Q8HR JULIÁN Administration Sodium Chloride 1,000 mls @ 50 mls/hr 06/25/20 08:32 07/03/20 17:12 Normal Saline 0.9% IV 1,000 mls .Q20H JULIÁN Administration Insulin Glargine 15 units/ 0.15 mls @ 0 mls/hr 06/30/20 09:00 07/04/20 09:51 Miscellaneous Medication SC 0.15 mls QAM JULIÁN Administration Insulin Glargine 15 units/ 0.15 mls @ 0 mls/hr 06/30/20 21:00 07/03/20 20:53 Miscellaneous Medication SC 0.15 mls HS JULIÁN Administration Insulin Human Lispro 0 units 06/24/20 09:00 07/03/20 17:40 Humalog 300 Units/3 Ml Vial SC 9 units .AGGRESSIVE SLIDING PRN Administration Aggressive Correctional Scale Insulin Human Lispro 0 units 06/24/20 21:34 07/03/20 20:55 Humalog 300 Units/3 Ml Vial SC 3 unit .BEDTIME SLIDING SC PRN Administration Bedtime Correctional Scale Lidocaine 1 patch 06/27/20 22:00 07/03/20 20:54 Lidocaine 5% Patch TD 1 patch 2200 JULIÁN Administration Melatonin 6 mg 06/30/20 23:08 06/30/20 23:24 Melatonin 3 Mg Tab PO 6 mg HS PRN Administration Insomnia Miscellaneous Medication 1 each 06/28/20 10:00 07/04/20 09:52 Lidocaine Patch Removal 1 Each TOP 1 each 1000 JULIÁN Administration Ondansetron HCl 4 mg 06/23/20 21:09 06/29/20 13:18 Ondansetron Pf 4 Mg/2 Ml Vial IVP 4 mg Q6H PRN Administration Nausea/Vomiting use 1st Pantoprazole Sodium 40 mg 06/29/20 09:00 07/04/20 08:13 Pantoprazole 40 Mg Tab PO 40 mg DAILY JULIÁN Administration Polyethylene Glycol 17 gm 06/24/20 09:00 07/04/20 08:13 Polyethylene Glycol 3350 17 Gm Packet PO 17 gm DAILY JULIÁN Administration Sodium Chloride 10 ml 07/03/20 09:00 07/04/20 08:14 Flush - Normal Saline 10 Ml Syringe IVF 10 ml Q12HR JULIÁN Administration Tramadol HCl 50 mg 06/26/20 14:52 07/03/20 02:30 Tramadol Hcl 50 Mg Tab PO 50 mg Q6H PRN Administration Moderate Pain (4-6) Zinc Sulfate 220 mg 06/25/20 09:00 07/04/20 08:11 Zinc Sulfate 220 Mg Cap PO 220 mg DAILY JULIÁN Administration Hospitalist Exam Vitals: Vital Signs (12 hours) Temp Pulse Resp BP Pulse Ox 07/04/20 15:30 98.1 F 85 18 140/69 98 07/04/20 12:00 97.9 F 84 20 144/63 H 96 07/04/20 08:11 86 Weight Admit Weight 199 lb 8.293 oz Weight 199 lb 8.293 oz Eye: anicteric sclera ENT: normocephalic atraumatic, no oropharyngeal lesions, moist mucosa Neck: supple Heart: RRR Respiratory: CTAB Gastrointestinal: soft, non-tender Extremities: no cyanosis Skin: no rashes Psychiatric: normal affect, normal behavior Hosp A/P - Plan -Assessment (1) Acute CVA (cerebrovascular accident) Code(s): I63.9 - CEREBRAL INFARCTION, UNSPECIFIED Status: Acute (2) Bacteremia Code(s): R78.81 - BACTEREMIA Status: Acute (3) DM type 2 (diabetes mellitus, type 2) Status: Chronic (4) Myositis Code(s): M60.9 - MYOSITIS, UNSPECIFIED Status: Acute (5) Osteomyelitis of toe Code(s): M86.9 - OSTEOMYELITIS, UNSPECIFIED Status: Acute (6) Pneumonia due to COVID-19 virus Code(s): U07.1 - COVID-19; J12.82 - PNEUMONIA DUE TO CORONAVIRUS DISEASE 2019 Status: Acute (7) Acute respiratory failure due to COVID-19 Code(s): U07.1 - COVID-19; J96.00 - ACUTE RESPIRATORY FAILURE, UNSP W HYPOXIA OR HYPERCAPNIA Status: Acute (8) a. fib with RVR Status: Acute - Plan Strep bacterememia --Continue clindamycin and penicillin G. --2D echo pending Acute CVA - likely d/t septic emboli --ASA/Statin. --Cont PT Sepsis, POA, likely secondary to left great toe osteomyelitis, s/p amputation on 06/26/20 --Patient is on penicillin G and clindamycin Left great toe osteomyelitis --Continue penicillin G and clindamycin --s/p amputation on 06/26 - wound vac in place. cont routine post cares. -Follow up with Dr. Chiang for post op follow up 2-3 wks Acute hypoxic respiratory failure secondary to Covid 19 infection - unclear onset of symptoms, but weakness started about a week ago --continue O2 supplement. --Vitamin C/D/zinc, and Decadron --s/p convalescent plasma. --Continue Lovenox for DVT ppx Uncontrolled diabetes with DKA --Continue insulin sliding scale Generalized weakness - much improved. HTN, essential --Continue Norvasc A. fib with RVR --Resolved
[2020-07-04] MEDS ORDERED: Silver Nitrate Application 1 EACH TOP SCH (17:30)
[2020-07-04] MEDS: HumaLOG 300 UNITS/3 ML VIAL SC PRN (17:37)
[2020-07-04] MEDS: Sodium Chloride 0.9% 1,000 ML IV SCH (19:22)
[2020-07-04] MEDS ORDERED: Oxymetazoline HCl 0.05% (30 ML BOT) NS PRN (19:29)
[2020-07-04] MEDS ORDERED: Enoxaparin Sodium 100 MG/ML SYRINGE SC SCH (21:00)
[2020-07-04] MEDS: traMADol HCl 50 MG TAB PO PRN (21:55)
[2020-07-04] MEDS: Atorvastatin Calcium 40 MG TAB PO SCH (21:55)
[2020-07-04] MEDS: Lidocaine 5% Patch TD SCH (21:55)
[2020-07-04] MEDS: Sodium Chloride 0.65% Nasal 44 ML BOT EA NARE SCH (22:06)
[2020-07-05] MEDS: Penicillin G Potassium 4 MILL.UNITS in Sodium Chloride 0.9% 100 ML IVPB SCH ×5 (01:56→16:41)
[2020-07-05] MEDS: Sodium Chloride 0.65% Nasal 44 ML BOT EA NARE SCH ×5 (01:56→22:09)
[2020-07-05 05:05] LABS: Hemoglobin 10.2 g/dL (14.0-18.0); Mean Corpuscular HGB CONC 32.1 g/dL (32.0-36.0); Mean Corpuscular Hemoglobin 28.4 pg (27.0-31.0); Mean Corpuscular Volume 88.3 fL (78.0-98.0); Mean Platelet Volume 7.9 fL (7.4-10.4); Platelet Count 443 thou/uL (130-400); RBC Distribution Width 14.9 % (11.5-14.5); Red Blood Cell (RBC) Count 3.58 mill/uL (4.70-6.10); White Blood Cell (WBC) Count 10.9 thou/uL (4.8-10.8)
[2020-07-05 05:25] LABS: Anion Gap 11 mmol/L (10-20); BUN (Urea Nitrogen) 11 mg/dL (8.4-25.7); Calc. Creatinine Clearance 148 mL/min (70-130); Calcium 8.2 mg/dL (7.8-10.44); Carbon Dioxide 29 mmol/L (22-29); Chloride 96 mmol/L (98-107); Glucose 171 mg/dL (70-105); Potassium 4.2 mmol/L (3.5-5.1); Sodium 132 mmol/L (136-145)
[2020-07-05] MEDS: Clindamycin/D5W 900 MG in Premix Bag 1 BAG IVPB SCH ×2 (05:36→13:53)
[2020-07-05] MEDS ORDERED: Furosemide 40 MG/4 ML VIAL SLOW IVP SCH (09:15)
[2020-07-05] MEDS: Polyethylene Glycol 3350 17 GM Packet PO SCH (10:27)
[2020-07-05] MEDS: Insulin Glargine 15 UNITS in Pre-Filled Syringe 1 EACH SC SCH ×2 (10:27→22:04)
[2020-07-05] MEDS: Cholecalciferol (Vitamin D3) 400 UNITS TAB PO SCH (10:28)
[2020-07-05] MEDS: Zinc Sulfate 220 MG CAP PO SCH (10:28)
[2020-07-05] MEDS: Dronedarone HCl 400 MG TAB PO SCH ×2 (10:28→16:41)
[2020-07-05] MEDS: Aspirin 81 mg Enteric Coated Tablet PO SCH (10:28)
[2020-07-05] MEDS: Ascorbic Acid 500 mg Chewable Tablet PO SCH (10:28)
[2020-07-05] MEDS: Amlodipine 5 MG TAB PO SCH (10:29)
[2020-07-05] MEDS: Dexamethasone 4 mg/ml Vial SLOW IVP SCH (10:29)
[2020-07-05] MEDS: Transdermal Patch Removal TOP SCH (10:30)
[2020-07-05] MEDS: Sodium Chloride 0.9% 1,000 ML IV SCH (13:06)
--- NOTE | 2020-07-05 15:21 | PDOC.HOSPP ---
- Subjective Encounter Date: 07/05/20 Encounter Time: 07:00 Subjective: Patient seen for follow-up regarding ischemic CVA. Denies chest pain or shortness of breath. - Objective Vital Signs & Weight: Vital Signs (12 hours) Temp Pulse Resp BP BP Pulse Ox 07/05/20 10:40 97.7 F 94 18 142/75 H 94 L 07/05/20 08:05 92 L 07/05/20 07:35 97.9 F 90 18 128/80 92 L 07/05/20 03:54 98.0 F 82 16 137/62 98 Weight Admit Weight 199 lb 8.293 oz Weight 199 lb 8.293 oz I&O: 07/04/20 07/05/20 07/06/20 06:59 06:59 06:59 Intake Total 2450 1654 557 Output Total 2024 1445 2450 Balance 425 209 -1893 Result Diagrams: 07/05/20 04:25 07/05/20 04:25 Additional Labs: Accuchecks 07/05/20 07/05/20 07/04/20 10:42 05:39 21:32 POC Glucose 158 H 149 H 182 H 07/04/20 17:08 POC Glucose 173 H I reviewed patient's labs and MAR EKG Reviewed by me: Yes (Normal sinus rhythm on telemetry) Hospitalist ROS - Review of Systems Cardiovascular: denies: chest pain, palpitations, orthopnea, paroxysmal noc. dyspnea, edema, light headedness Genitourinary: denies: dysuria, frequency, incontinence, hematuria, retention - Medication Medications: Active Medications Generic Name Dose Route Start Last Admin Trade Name Mikyq PRN Reason Stop Dose Admin Acetaminophen 1,000 mg 06/26/20 14:52 06/30/20 21:36 Acetaminophen 500 Mg Tab PO 1,000 mg Q6H PRN Administration Mild Pain (1-3) Amlodipine Besylate 5 mg 07/01/20 09:00 07/05/20 10:29 Amlodipine 5 Mg Tab PO 5 mg DAILY JULIÁN Administration Ascorbic Acid 1,000 mg 06/25/20 09:00 07/05/20 10:28 Ascorbic Acid 500 Mg Chewable Tablet PO 1,000 mg DAILY JULIÁN Administration Aspirin 81 mg 06/25/20 09:00 07/05/20 10:28 Aspirin 81 Mg Enteric Coated Tablet PO 81 mg DAILY JULIÁN Administration Atorvastatin Calcium 40 mg 06/24/20 21:00 07/04/20 21:55 Atorvastatin Calcium 40 Mg Tab PO 40 mg HS JULIÁN Administration Cholecalciferol 400 units 06/25/20 09:00 07/05/20 10:28 Cholecalciferol (Vitamin D3) 400 Units Tab PO 400 units DAILY JULIÁN Administration Dexamethasone 6 mg 06/28/20 09:00 07/05/20 10:29 Dexamethasone 4 Mg/Ml Vial SLOW IVP 6 mg DAILY JULIÁN Administration Dronedarone 400 mg 07/03/20 17:00 07/05/20 10:28 Dronedarone Hcl 400 Mg Tab PO 400 mg BID-WM JULIÁN Administration Penicillin G Potassium 4 mill. 100 mls @ 200 mls/hr 06/24/20 21:00 07/05/20 13:53 units/ Sodium Chloride IVPB 100 mls Q4HR JULIÁN Administration Clindamycin Phosphate/Dextrose 50 mls @ 100 mls/hr 06/24/20 22:00 07/05/20 13:53 900 mg/ Device IVPB 50 mls Q8HR JULIÁN Administration Sodium Chloride 1,000 mls @ 50 mls/hr 06/25/20 08:32 07/05/20 13:06 Normal Saline 0.9% IV Not Given .Q20H JULIÁN Insulin Glargine 15 units/ 0.15 mls @ 0 mls/hr 06/30/20 09:00 07/05/20 10:27 Miscellaneous Medication SC 0.15 mls QAM JULIÁN Administration Insulin Glargine 15 units/ 0.15 mls @ 0 mls/hr 06/30/20 21:00 07/04/20 21:55 Miscellaneous Medication SC 0.15 mls HS JULIÁN Administration Insulin Human Lispro 0 units 06/24/20 09:00 07/04/20 17:37 Humalog 300 Units/3 Ml Vial SC 3 units .AGGRESSIVE SLIDING PRN Administration Aggressive Correctional Scale Insulin Human Lispro 0 units 06/24/20 21:34 07/03/20 20:55 Humalog 300 Units/3 Ml Vial SC 3 unit .BEDTIME SLIDING SC PRN Administration Bedtime Correctional Scale Lidocaine 1 patch 06/27/20 22:00 07/04/20 21:55 Lidocaine 5% Patch TD 1 patch 2200 JULIÁN Administration Melatonin 6 mg 06/30/20 23:08 06/30/20 23:24 Melatonin 3 Mg Tab PO 6 mg HS PRN Administration Insomnia Miscellaneous Medication 1 each 06/28/20 10:00 07/05/20 10:30 Lidocaine Patch Removal 1 Each TOP 1 each 1000 JULIÁN Administration Ondansetron HCl 4 mg 06/23/20 21:09 06/29/20 13:18 Ondansetron Pf 4 Mg/2 Ml Vial IVP 4 mg Q6H PRN Administration Nausea/Vomiting use 1st Oxymetazoline HCl 0 ml 07/04/20 19:29 07/04/20 22:26 Oxymetazoline Hcl 0.05% (30 Ml Bot) NS 30 ml DAILY PRN Administration Bleeding Pantoprazole Sodium 40 mg 06/29/20 09:00 07/05/20 10:28 Pantoprazole 40 Mg Tab PO 40 mg DAILY JULIÁN Administration Polyethylene Glycol 17 gm 06/24/20 09:00 07/05/20 10:27 Polyethylene Glycol 3350 17 Gm Packet PO 17 gm DAILY JULIÁN Administration Sodium Chloride 10 ml 07/03/20 09:00 07/05/20 10:30 Flush - Normal Saline 10 Ml Syringe IVF 10 ml Q12HR JULIÁN Administration Sodium Chloride 0 ml 07/04/20 20:00 07/05/20 13:54 Sodium Chloride 0.65% Nasal 44 Ml Bot EA NARE 5 spr 5XD JULIÁN Administration Tramadol HCl 50 mg 06/26/20 14:52 07/04/20 21:55 Tramadol Hcl 50 Mg Tab PO 50 mg Q6H PRN Administration Moderate Pain (4-6) Zinc Sulfate 220 mg 06/25/20 09:00 07/05/20 10:28 Zinc Sulfate 220 Mg Cap PO 220 mg DAILY JULIÁN Administration Hospitalist Exam Vitals: Vital Signs (12 hours) Temp Pulse Resp BP BP Pulse Ox 07/05/20 10:40 97.7 F 94 18 142/75 H 94 L 07/05/20 08:05 92 L 07/05/20 07:35 97.9 F 90 18 128/80 92 L 07/05/20 03:54 98.0 F 82 16 137/62 98 Weight Admit Weight 199 lb 8.293 oz Weight 199 lb 8.293 oz General Appearance: awake alert Eye: anicteric sclera ENT: normocephalic atraumatic Neck: supple Heart: RRR Respiratory: CTAB, no rales Gastrointestinal: soft Skin: no rashes Psychiatric: normal affect Hosp A/P - Plan -Assessment (1) Acute CVA (cerebrovascular accident) Code(s): I63.9 - CEREBRAL INFARCTION, UNSPECIFIED Status: Acute (2) Bacteremia Code(s): R78.81 - BACTEREMIA Status: Acute (3) DM type 2 (diabetes mellitus, type 2) Status: Chronic (4) Myositis Code(s): M60.9 - MYOSITIS, UNSPECIFIED Status: Acute (5) Osteomyelitis of toe Code(s): M86.9 - OSTEOMYELITIS, UNSPECIFIED Status: Acute (6) Pneumonia due to COVID-19 virus Code(s): U07.1 - COVID-19; J12.82 - PNEUMONIA DUE TO CORONAVIRUS DISEASE 2018 Status: Acute (7) Acute respiratory failure due to COVID-19 Code(s): U07.1 - COVID-19; J96.00 - ACUTE RESPIRATORY FAILURE, UNSP W HYPOXIA OR HYPERCAPNIA Status: Acute (8) a. fib with RVR Status: Acute - Plan Strep bacterememia --Patient is on clindamycin and penicillin G. --2D echo pending Acute CVA - likely d/t septic emboli --ASA/Statin. Sepsis, POA, likely secondary to left great toe osteomyelitis, s/p amputation on 06/26/20 --Continue penicillin G and clindamycin Left great toe osteomyelitis --Continue penicillin G and clindamycin --s/p amputation on 06/26 - wound vac in place. cont routine post cares. -Follow up with Dr. Chiang for post op follow up 2-3 wks Acute hypoxic respiratory failure secondary to Covid 19 infection - unclear onset of symptoms, but weakness started about a week ago --continue O2 supplement as needed. --Vitamin C/D/zinc, and Decadron --s/p convalescent plasma. --Continue Lovenox for DVT ppx Uncontrolled diabetes with DKA --Patient is a insulin sliding scale Generalized weakness - much improved. HTN, essential --Continue Norvasc A. fib with RVR --Resolved
[2020-07-05] MEDS: HumaLOG 300 UNITS/3 ML VIAL SC PRN (17:05)
--- NOTE | 2020-07-05 18:58 | PRG ---
DATE OF SERVICE: 07/05/2020 SUBJECTIVE: Mr. Jett sitting by the bedside, has much better functional condition. Right now, he is able to move around and does not have a headache. His neck pain is much improved. Range of motion better. No more cough or dyspnea. No abdominal pain. OBJECTIVE: VITAL SIGNS: His temperature is normal, blood pressure 140/75, heart rate 89, respirations 18 to 20, O2 saturation 94% on room air. LUNGS: Clear. HEART: S1 and S2. Regular rate. There is no obvious swelling at the right sternoclavicular joint. He has had loud holosystolic murmur at the left sternal border. EXTREMITIES: He has 1+ edema in lower extremities. LABORATORY DATA: White cell count 10.9, hemoglobin 10.2, platelets 443. Creatinine 0.68, sodium 132. ASSESSMENT AND DISCUSSION: Type 2 diabetes, group A Streptococcus invasive infection with bacteremia, myositis, right sternoclavicular joint infection, and possible endocarditis. He has embolic phenomena in MRI of brain. This is probably at least the 14th day of his COVID infection, is resolved with no respiratory symptoms. He is released from isolation and we will go ahead and switch him to Rocephin. Discontinue penicillin and clindamycin. We will need to CT his chest to see about his sternoclavicular joint. He is going to go for ROBB by Dr. Bourgeois to evaluate endocarditis. Job ID: [id number] [facility]
--- NOTE | 2020-07-05 20:11 | CON ---
DATE OF CONSULTATION: CHIEF COMPLAINT: Epistaxis and throat discomfort. HISTORY OF PRESENT ILLNESS: Av Jett is a 59-year-old male patient who is complaining of left-sided nasal bleeding that also extends to his right side that has been continuously going throughout the day and has stopped, but he started to have large blood clots coming from his nose and down the back of his throat. He was originally admitted for neck pain and general discomfort with a history of mitral valve prolapse and mitral regurgitation as well as a history of diabetes. After admission, he was found to be COVID positive and has been treated medically and also had osteomyelitis of his toe which had to be amputated and had blood cultures that came back positive for group A Streptococcus. He is currently being treated with IV antibiotics and is also experiencing atrial fibrillation and is on anticoagulation medication currently. PAST MEDICAL HISTORY: Mitral valve regurgitation, mitral valve prolapse, atrial fibrillation, diabetes, and COVID positive. SOCIAL HISTORY: The patient does not smoke or drink. FAMILY HISTORY: Noncontributory. ALLERGIES: NO KNOWN DRUG ALLERGIES. MEDICATIONS: Please see electronic medical record. REVIEW OF SYSTEMS: Skin, eyes, ears, nose, and throat, respiratory, cardiovascular, gastrointestinal, musculoskeletal, neurologic, hematologic, lymphatic, immunologic, and endocrine are negative unless otherwise listed in the HPI. PHYSICAL EXAMINATION: GENERAL: No acute distress. Alert and oriented, answering appropriately. HEAD AND FACE: Normocephalic, atraumatic. No facial skin lesions. No facial tenderness. No parotid gland or submandibular gland masses or tenderness. EYES: Extraocular movements are intact and pupils are equally round and reactive to light. There is no nystagmus on lateral gaze. EARS: Right and left pinna are intact. EAC is clear. No evidence of drainage or effusion. NOSE: External nose is normal. Nasal aperture on both sides have some old clotted blood. There is fresh blood on the left anterior nasal septum and left mid septum with some prominent vasculature. There is a right-sided anterior septal crusting with some fresh blood surrounding. ORAL CAVITY: Lips, teeth, and tongue are without erythema or signs of infection. Oral mucosa is moist. Tongue is mobile. Palate and uvula are without lesions and symmetric elevation. NECK: No lymphadenopathy. Trachea is midline. No thyroid masses or lesions palpated. NEUROLOGIC: The cranial nerves 2 through 12 are grossly intact and mood and affect are normal. DESCRIPTION OF PROCEDURE: The patient's nose was debrided of nasal clots and examined and the areas of prominent vasculature were cauterized with silver nitrate cautery sticks and the patient tolerated the procedure well without bleeding. ASSESSMENT AND PLAN: A 59-year-old male patient with a history of diabetes, osteomyelitis, bacteremia, atrial fibrillation, COVID positive with mitral valve regurgitation and mitral valve prolapse with generalized pain. Given the patient's anticoagulation and treatment for atrial fibrillation, recommend nasal cautery as well as nasal saline sprays and humidifying all oxygen and avoid any digitation of the right and left nares. If patient has continued bleeding, would recommend nasal packing. If unable to be stopped with Afrin nasal spray, 5 sprays on the bleeding side and holding pressure for 15 minutes and repeat another 5 sprays and then held pressure for another 15 minutes. Thank you for this consultation. Please call with any questions, . Job ID: [id number]
[2020-07-05] MEDS: Atorvastatin Calcium 40 MG TAB PO SCH (21:47)
[2020-07-05] MEDS: cefTRIAXone\\ROCEPHIN 2 GM in Sodium Chloride 0.9% 100 ML IVPB SCH (22:08)
[2020-07-05] MEDS: Lidocaine 5% Patch TD SCH (22:10)
[2020-07-06] MEDS: Sodium Chloride 0.9% 1,000 ML IV SCH (00:20)
[2020-07-06] MEDS: Sodium Chloride 0.65% Nasal 44 ML BOT EA NARE SCH ×5 (00:45→20:36)
[2020-07-06] MEDS: Polyethylene Glycol 3350 17 GM Packet PO SCH (08:01)
[2020-07-06] MEDS: Dronedarone HCl 400 MG TAB PO SCH ×2 (09:22→17:14)
[2020-07-06] MEDS: Ascorbic Acid 500 mg Chewable Tablet PO SCH (09:23)
[2020-07-06] MEDS: Insulin Glargine 15 UNITS in Pre-Filled Syringe 1 EACH SC SCH ×2 (09:23→20:31)
[2020-07-06] MEDS: Amlodipine 5 MG TAB PO SCH (09:23)
[2020-07-06] MEDS: Cholecalciferol (Vitamin D3) 400 UNITS TAB PO SCH (09:23)
[2020-07-06] MEDS: Dexamethasone 4 mg/ml Vial SLOW IVP SCH (09:23)
[2020-07-06] MEDS: Aspirin 81 mg Enteric Coated Tablet PO SCH (09:23)
[2020-07-06] MEDS: Transdermal Patch Removal TOP SCH (09:24)
[2020-07-06] MEDS: Zinc Sulfate 220 MG CAP PO SCH (09:24)
[2020-07-06] MEDS ORDERED: PROPOFOL 200 MG/20 ML VIAL ONE (10:52)
[2020-07-06] MEDS ORDERED: PHENYLEPHRINE-NS 100 MCG/ML 10 ML SYRINGE ONE (11:12)
[2020-07-06] MEDS ORDERED: ePHEDrine 50 MG/ML VIAL ONE (11:12)
[2020-07-06] MEDS ORDERED: PROPOFOL 20 ML ONE (11:12)
--- NOTE | 2020-07-06 11:57 | OP ---
DATE OF PROCEDURE: 07/06/2020 PROCEDURE: Transesophageal echocardiogram. INDICATION: Evaluate for endocarditis. DESCRIPTION OF PROCEDURE: The patient was taken to the PACU. The patient was sedated by Anesthesiology. A transesophageal probe was placed into the distal esophagus and stomach. Echocardiographic images were obtained. The transesophageal probe was removed. FINDINGS: 1. Normal left ventricular systolic function. 2. Left atrial enlargement. 3. Structurally normal aortic valve. 4. The mitral valve leaflets are redundant with prolapse and a ruptured chordae, which has a very small mass suggestive of possible vegetation. 5. Severe mitral regurgitation. 6. Mild tricuspid regurgitation. 7. Atherosclerotic debris in the descending aorta. IMPRESSION: Redundant mitral valve leaflets with mitral valve prolapse and severe mitral regurgitation with a ruptured chordae tendineae and probable small vegetation noted on the leaflet. Job ID: [id number] [facility]
[2020-07-06] MEDS: Ondansetron PF 4 MG/2 ML Vial IVP PRN (14:38)
[2020-07-06] MEDS: Acetaminophen 500 MG TAB PO PRN (14:38)
[2020-07-06] MEDS: HumaLOG 300 UNITS/3 ML VIAL SC PRN ×2 (14:48→17:14)
--- NOTE | 2020-07-06 19:03 | PDOC.HOSPP ---
- Subjective Encounter Date: 07/06/20 Encounter Time: 09:30 Subjective: Patient seen for follow-up for CVA. Denies any new complaints. - Objective Vital Signs & Weight: Vital Signs (12 hours) Temp Pulse Pulse Resp BP BP Pulse Ox 07/06/20 15:21 98.4 F 87 20 111/56 L 96 07/06/20 13:26 89 147/69 H 07/06/20 12:30 97.6 F 89 16 147/69 H 98 07/06/20 09:23 89 07/06/20 08:00 97 07/06/20 07:55 98 F 89 18 124/80 97 Weight Admit Weight 199 lb 8.293 oz Weight 199 lb 8.293 oz I&O: 07/05/20 07/06/20 07/07/20 06:59 06:59 06:59 Intake Total 1654 2111 300 Output Total 1445 3650 500 Balance 209 -1539 -200 Result Diagrams: 07/05/20 04:25 07/05/20 04:25 Additional Labs: Accuchecks 07/06/20 07/06/20 07/06/20 16:34 14:39 06:20 POC Glucose 199 H 212 H 92 07/05/20 21:50 POC Glucose 239 H Labs and MAR reviewed by me EKG Reviewed by me: Yes (Telemetry shows normal sinus rhythm) Hospitalist ROS - Review of Systems Cardiovascular: denies: chest pain, palpitations, orthopnea, edema, light headedness, other Gastrointestinal: denies: nausea, vomiting, abdominal pain, constipation, melena, hematochezia - Medication Medications: Active Medications Generic Name Dose Route Start Last Admin Trade Name Mikyq PRN Reason Stop Dose Admin Acetaminophen 1,000 mg 06/26/20 14:52 07/06/20 14:38 Acetaminophen 500 Mg Tab PO 1,000 mg Q6H PRN Administration Mild Pain (1-3) Amlodipine Besylate 5 mg 07/01/20 09:00 07/06/20 09:23 Amlodipine 5 Mg Tab PO 5 mg DAILY JULIÁN Administration Ascorbic Acid 1,000 mg 06/25/20 09:00 07/06/20 09:23 Ascorbic Acid 500 Mg Chewable Tablet PO 1,000 mg DAILY JULIÁN Administration Aspirin 81 mg 06/25/20 09:00 07/06/20 09:23 Aspirin 81 Mg Enteric Coated Tablet PO 81 mg DAILY JULIÁN Administration Atorvastatin Calcium 40 mg 06/24/20 21:00 07/05/20 21:47 Atorvastatin Calcium 40 Mg Tab PO 40 mg HS JULIÁN Administration Cholecalciferol 400 units 06/25/20 09:00 07/06/20 09:23 Cholecalciferol (Vitamin D3) 400 Units Tab PO 400 units DAILY JULIÁN Administration Dexamethasone 6 mg 06/28/20 09:00 07/06/20 09:23 Dexamethasone 4 Mg/Ml Vial SLOW IVP 6 mg DAILY JULIÁN Administration Dronedarone 400 mg 07/03/20 17:00 07/06/20 17:14 Dronedarone Hcl 400 Mg Tab PO 400 mg BID-WM JULIÁN Administration Insulin Glargine 15 units/ 0.15 mls @ 0 mls/hr 06/30/20 09:00 07/06/20 09:23 Miscellaneous Medication SC Not Given QAM JULIÁN Insulin Glargine 15 units/ 0.15 mls @ 0 mls/hr 06/30/20 21:00 07/05/20 22:04 Miscellaneous Medication SC 0.15 mls HS JULIÁN Administration Ceftriaxone Sodium 2 gm/ 100 mls @ 200 mls/hr 07/05/20 20:00 07/05/20 22:08 Sodium Chloride IVPB 100 mls Q24HR JULIÁN Administration Insulin Human Lispro 0 units 06/24/20 09:00 07/06/20 17:14 Humalog 300 Units/3 Ml Vial SC 3 units .AGGRESSIVE SLIDING PRN Administration Aggressive Correctional Scale Insulin Human Lispro 0 units 06/24/20 21:34 07/03/20 20:55 Humalog 300 Units/3 Ml Vial SC 3 unit .BEDTIME SLIDING SC PRN Administration Bedtime Correctional Scale Lidocaine 1 patch 06/27/20 22:00 07/05/20 22:10 Lidocaine 5% Patch TD 1 patch 2200 JULIÁN Administration Melatonin 6 mg 06/30/20 23:08 06/30/20 23:24 Melatonin 3 Mg Tab PO 6 mg HS PRN Administration Insomnia Miscellaneous Medication 1 each 06/28/20 10:00 07/06/20 09:24 Lidocaine Patch Removal 1 Each TOP 1 each 1000 JULIÁN Administration Ondansetron HCl 4 mg 06/23/20 21:09 07/06/20 14:38 Ondansetron Pf 4 Mg/2 Ml Vial IVP 4 mg Q6H PRN Administration Nausea/Vomiting use 1st Oxymetazoline HCl 0 ml 07/04/20 19:29 07/04/20 22:26 Oxymetazoline Hcl 0.05% (30 Ml Bot) NS 30 ml DAILY PRN Administration Bleeding Pantoprazole Sodium 40 mg 06/29/20 09:00 07/06/20 09:24 Pantoprazole 40 Mg Tab PO 40 mg DAILY JULIÁN Administration Polyethylene Glycol 17 gm 06/24/20 09:00 07/06/20 08:01 Polyethylene Glycol 3350 17 Gm Packet PO Not Given DAILY JULIÁN Sodium Chloride 10 ml 07/03/20 09:00 07/06/20 09:24 Flush - Normal Saline 10 Ml Syringe IVF 10 ml Q12HR JULIÁN Administration Sodium Chloride 0 ml 07/04/20 20:00 07/06/20 17:14 Sodium Chloride 0.65% Nasal 44 Ml Bot EA NARE 5 spr 5XD JULIÁN Administration Zinc Sulfate 220 mg 06/25/20 09:00 07/06/20 09:24 Zinc Sulfate 220 Mg Cap PO 220 mg DAILY JULIÁN Administration Hospitalist Exam Vitals: Vital Signs (12 hours) Temp Pulse Pulse Resp BP BP Pulse Ox 07/06/20 15:21 98.4 F 87 20 111/56 L 96 07/06/20 13:26 89 147/69 H 07/06/20 12:30 97.6 F 89 16 147/69 H 98 07/06/20 09:23 89 07/06/20 08:00 97 07/06/20 07:55 98 F 89 18 124/80 97 Weight Admit Weight 199 lb 8.293 oz Weight 199 lb 8.293 oz General Appearance: awake alert Eye: anicteric sclera Neck: no thyromegaly Respiratory: CTAB Gastrointestinal: soft Skin: no rashes Psychiatric: normal affect Hosp A/P - Plan -Assessment (1) Acute CVA (cerebrovascular accident) Code(s): I63.9 - CEREBRAL INFARCTION, UNSPECIFIED Status: Acute (2) Bacteremia Code(s): R78.81 - BACTEREMIA Status: Acute (3) DM type 2 (diabetes mellitus, type 2) Status: Chronic (4) Myositis Code(s): M60.9 - MYOSITIS, UNSPECIFIED Status: Acute (5) Osteomyelitis of toe Code(s): M86.9 - OSTEOMYELITIS, UNSPECIFIED Status: Acute (6) Pneumonia due to COVID-19 virus Code(s): U07.1 - COVID-19; J12.82 - PNEUMONIA DUE TO CORONAVIRUS DISEASE 2019 Status: Acute (7) Acute respiratory failure due to COVID-19 Code(s): U07.1 - COVID-19; J96.00 - ACUTE RESPIRATORY FAILURE, UNSP W HYPOXIA OR HYPERCAPNIA Status: Acute (8) a. fib with RVR Status: Acute - Plan Strep bacterememia --Patient is on clindamycin and penicillin G. --ROBB reportedly showed infective endocarditis. Acute CVA - likely d/t septic emboli --Continue ASA/Statin. Sepsis, POA, likely secondary to left great toe osteomyelitis, s/p amputation on 06/26/20 -- penicillin G and clindamycin Left great toe osteomyelitis --Continue penicillin G and clindamycin --s/p amputation on 06/26 - wound vac in place. cont routine post cares. Acute hypoxic respiratory failure secondary to Covid 19 infection - unclear onset of symptoms, but weakness started about a week ago --continue O2 supplement as needed. Uncontrolled diabetes with DKA --Patient is a insulin sliding scale Generalized weakness - much improved. HTN, essential --Continue Norvasc A. fib with RVR --Resolved
[2020-07-06] MEDS: Atorvastatin Calcium 40 MG TAB PO SCH (20:30)
[2020-07-06] MEDS: cefTRIAXone\\ROCEPHIN 2 GM in Sodium Chloride 0.9% 100 ML IVPB SCH (20:30)
[2020-07-06] MEDS: Lidocaine 5% Patch TD SCH (20:36)
[2020-07-06] MEDS ORDERED: Nystatin Cream 30 GM TUBE TOP SCH (22:00)
[2020-07-06 23:28] LABS: #Eosinphils 0.1 thou/uL (0.0-0.7); #Lymphocytes 1.4 thou/uL (1.20-3.40); #Monocytes 0.6 thou/uL (0.11-0.59); #Neutrophils 9.1 thou/uL (1.40-6.50); %Basophils 0.3 % (0.0-1.0); %Eosinophils 0.7 % (0.0-10.0); %Lymphocytes 12.3 % (21.0-51.0); %Monocytes 5.6 % (0.0-10.0); %Neutrophils 81.1 % (42.0-75.0); Hemoglobin 9.1 g/dL (14.0-18.0); Mean Corpuscular HGB CONC 32.6 g/dL (32.0-36.0); Mean Corpuscular Hemoglobin 28.7 pg (27.0-31.0); Mean Corpuscular Volume 88.2 fL (78.0-98.0); Mean Platelet Volume 7.5 fL (7.4-10.4); Platelet Count 385 thou/uL (130-400); RBC Distribution Width 15.8 % (11.5-14.5); Red Blood Cell (RBC) Count 3.17 mill/uL (4.70-6.10); White Blood Cell (WBC) Count 11.2 thou/uL (4.8-10.8)
[2020-07-06 23:46] LABS: Anion Gap 11 mmol/L (10-20); BUN (Urea Nitrogen) 12 mg/dL (8.4-25.7); Calc. Creatinine Clearance 129 mL/min (70-130); Calcium 7.7 mg/dL (7.8-10.44); Carbon Dioxide 29 mmol/L (22-29); Chloride 96 mmol/L (98-107); Glucose 252 mg/dL (70-105); Magnesium 1.8 mg/dL (1.6-2.6); Potassium 4.2 mmol/L (3.5-5.1); Sodium 132 mmol/L (136-145)
[2020-07-07] MEDS: Sodium Chloride 0.65% Nasal 44 ML BOT EA NARE SCH ×5 (02:19→23:33)
[2020-07-07] MEDS: Acetaminophen 500 MG TAB PO PRN (05:49)
[2020-07-07] MEDS ORDERED: Magnesium 2 GM/50 ML 2 GM in Premix Bag 1 BAG IVPB SCH (06:45)
[2020-07-07] MEDS: HumaLOG 300 UNITS/3 ML VIAL SC PRN ×4 (07:07→21:07)
[2020-07-07] MEDS: Insulin Glargine 15 UNITS in Pre-Filled Syringe 1 EACH SC SCH ×2 (08:00→21:06)
[2020-07-07] MEDS: Dexamethasone 4 mg/ml Vial SLOW IVP SCH (08:01)
[2020-07-07] MEDS: Dronedarone HCl 400 MG TAB PO SCH ×2 (08:01→17:11)
[2020-07-07] MEDS: Ascorbic Acid 500 mg Chewable Tablet PO SCH (08:01)
[2020-07-07] MEDS: Cholecalciferol (Vitamin D3) 400 UNITS TAB PO SCH (08:02)
[2020-07-07] MEDS: Aspirin 81 mg Enteric Coated Tablet PO SCH (08:02)
[2020-07-07] MEDS: Zinc Sulfate 220 MG CAP PO SCH (08:02)
[2020-07-07] MEDS: Nystatin Cream 30 GM TUBE TOP SCH ×3 (08:05→23:34)
[2020-07-07] MEDS: Amlodipine 5 MG TAB PO SCH (08:05)
[2020-07-07] MEDS: Fluconazole 100 MG TAB PO SCH (08:13)
[2020-07-07] MEDS ORDERED: Furosemide 40 MG/4 ML VIAL SLOW IVP SCH (08:15)
[2020-07-07] MEDS: Apixaban 5 MG TAB PO SCH ×2 (08:15→21:02)
[2020-07-07] MEDS: Nystatin Cream 15 GM TUBE TOP SCH ×2 (09:23→23:34)
[2020-07-07] MEDS: Transdermal Patch Removal TOP SCH (09:23)
[2020-07-07] MEDS: Polyethylene Glycol 3350 17 GM Packet PO SCH (11:00)
--- NOTE | 2020-07-07 12:06 | SPC ---
Left upper extremity PICC placement sonographic guided HISTORY: Bacteremia. FINDINGS: After explaining the procedure and answering all questions, the left upper extremity was pr epped and draped in usual sterile fashion. Sterile technique, buffered local anesthesia, sonographic guidance, and a 22-gauge needle were used t o carefully access the left brachial vein. Standard technique was used to place the tip of a 5 [place] single lumen PICC so that the tip lies at the level of the superior vena cava. Catheter was secured externally and flushed. Patient tolerated the procedure well and was returned in unchanged condition. Fluoroscopy time 0 seconds. IMPRESSION : Technically successful left upper extremity PICC placement. Catheter is ready for use.
--- NOTE | 2020-07-07 13:55 | EKG ---
Test Reason : STAT Blood Pressure : / mmHG Vent. Rate : 153 BPM Atrial Rate : 182 BPM P-R Int : 000 ms QRS Dur : 078 ms QT Int : 292 ms P-R-T Axes : 000 048 037 degrees QTc Int : 466 ms Atrial fibrillation with rapid ventricular response Nonspecific ST abnormality , probably digitalis effect Abnormal ECG When compared with ECG of 23-JUN-2020 15:23, Atrial fibrillation has replaced Sinus rhythm T wave amplitude has decreased in Anterior leads Confirmed by DR. Subhash IBANEZ ([id number]) on 07/07/2020 1:55:20 PM Referred By: Grace WHITTINGTON Confirmed By:DR. Subhash IBANEZ
--- NOTE | 2020-07-07 15:31 | PDOC.DS.DS ---
Provider Date of Admission: 06/23/20 18:42 Date of Discharge: 07/07/20 Admitting Provider: Ta Mckeon MD Consultations: Cardiology (Dr. Gomes), General Surgery (Dr. Chiang), Infectious Disease (Dr. Fang), Neurology (Dr. Gallagher), Orthopedics (Dr. Caal) Primary Care Physician: Ta Farias MD Course Hospital Course: Discharge diagnosis: 1. Sepsis 2. Streptococcal bacteremia 3. Acute ischemic cerebrovascular accident 4. Toe infection 5. Myositis 6. COVID-19 infection 7. New diagnosis of diabetes mellitus type 2 8. Hyponatremia 9. Physical deconditioning Hospital course: Patient is a pleasant 59-year-old gentleman who was admitted to the hospital on June 23, 2020 for back and neck pain. This is in the context of a fall while walking to the bathroom. CT scan of the brain did not show any acute intracranial abnormality. MRI of the brain done on June 24 showed numerous small and tiny acute bilateral cerebral infarctions in watershed zones between MCA and SYBIL territories. He also had numerous small and tiny bilateral cerebellar acute infarctions. He was seen by neurology service. CT [place] angiogram with contrast showed mild stenosis at origin of bilateral vertebral arteries. He had diffuse idiopathic skeletal hyperostosis. X-ray of the left foot showed diffuse soft tissue edema of the first digit of the left foot. He was seen by orthopedic surgery service he was found to be positive for COVID-19. He underwent a diagnostic lumbar puncture with manometric because of diffuse neuromuscular deterioration with COVID-19 infection and concerns over encephalitis/meningitis. He was seen by infectious disease service. He was found to have strep bacteremia with likely myositis. He was seen by general surgery service because he had an ulcer with tracking into the joint of the left great toe. He underwent amputation of the left great toe with wound VAC application. On July 01 he was found to be in new onset atrial fibrillation with rapid ventricular response. He was treated with amiodarone, subsequently transitioned to dronedarone. He had transesophageal echocardiogram, which showed a small vegetation. He has been advised Ancef 2 g IV every 8 hours till August 18, 2020. He was physically deconditioned. He is being discharged to [facility] inpatient rehab. Patient's hemoglobin A1c was elevated at 13.5 during this hospitalization. Many thanks for allowing me to participate in your patient's care. Please feel free to contact me with any questions or concerns. Discharge destination: [facility] Total amount of time spent coordinating this discharge: 35 minutes Resuscitation Status: 06/23/20 20:57 Resuscitation Status Routine Resuscitation Status: FULL: Full Resuscitation Lab Results: 07/06/20 23:12 07/06/20 23:12 Abnormal Lab Results - Last 48 hrs 07/06/20 23:12: Sodium 132 L, Chloride 96 L, Calcium 7.7 L 07/06/20 23:12: WBC 11.2 H, RBC 3.17 L, Hgb 9.1 L, Hct 28.0 L, RDW 15.8 H, Neutrophils % 81.1 H, Lymphocytes % 12.3 L, Neutrophils # 9.1 H, Monocytes # 0.6 H Microbiology - Entire Visit 06/28/20 04:34 Venous blood - Right Arm Blood Culture - Final NO GROWTH IN 5 DAYS 06/28/20 04:34 Venous blood - Right Arm Blood Culture - Final NO GROWTH IN 5 DAYS 06/24/20 Unknown Spinal Fluid Body Fluid Culture - Final 06/23/20 15:32 Venous blood - Right Hand Blood Culture - Final Streptococcus pyogenes 06/24/20 18:00 Hand - Abscess Bacterial Culture - Final Beta-hemolytic strep group A 06/23/20 15:33 Venous blood - Left Hand Blood Culture - Final Streptococcus pyogenes 06/23/20 16:11 Urine voided Urine Culture - Final NO GROWTH AT 48 HOURS 06/24/20 12:55 Spinal Fluid Culture - Abscess Cryptococcal Antigen - Final Vitals: Vital Signs (12 hours) Temp Pulse Resp BP BP BP BP 07/07/20 15:15 97.6 F 95 16 128/61 07/07/20 11:53 97.9 F 87 16 114/61 07/07/20 08:05 89 99/58 L 07/07/20 08:00 07/07/20 07:29 98 F 89 16 99/58 L 07/07/20 04:00 97.3 F L 88 18 140/70 Pulse Ox 07/07/20 15:15 93 L 07/07/20 11:53 95 07/07/20 08:05 07/07/20 08:00 93 L 07/07/20 07:29 93 L 07/07/20 04:00 98 Weight Admit Weight 199 lb 8.293 oz Weight 199 lb 8.293 oz Physical Exam: The patient was seen and examined on the day of discharge. Patient denies chest pain or shortness of breath. Vital signs are stable. S1 and S2 are heard. Lungs are clear to auscultation bilaterally. Plan Prescriptions: Cefazolin [Ancef] 2 gm IV Q8H #14 piggyback Home Medications: Medication Instructions Recorded Confirmed Type Apixaban [Eliquis] 5 mg PO BID tab 07/07/20 Rx Aspirin [Ecotrin Low Strength] 81 mg PO DAILY tab 07/07/20 Rx Atorvastatin Calcium [Lipitor] 40 mg PO HS tab 07/07/20 Rx Cefazolin [Ancef] 2 gm IV Q8H #14 piggyback 07/07/20 Rx Dronedarone HCl [Multaq] 400 mg PO BID-WM tab 07/07/20 Rx Furosemide [Lasix] 40 mg PO DAILY-AC tab 07/07/20 Rx Insulin Glargine [Lantus Vial] 15 units SC QAM vial 07/07/20 Rx Nystatin [Mycostatin Cream] 1 gm TOP BID tube 07/07/20 Rx Pantoprazole [Protonix] 40 mg PO DAILY tab 07/07/20 Rx Allergies: No Known Allergies Allergy (Unverified 06/24/20 13:36) Discharge Instructions:: Instructions from Dr. Fang: after d/c pt to continue on Ancef 2 g iv q8hr end date = august 18 ask rehab to call [phone] when he is discharged to set up home iv ancef with my nurse labs = weekly cbc,crp,cmp Referrals: Jomar Chiang MD [Active] - 2-3 Weeks Ta Farias MD [Primary Care Provider] - Disposition: HOME
--- NOTE | 2020-07-07 17:12 | PRG ---
DATE OF SERVICE: 07/07/2020 SUBJECTIVE: The patient is feeling better. No shortness of breath. Mild chest pain at the site of the sternoclavicular joint. OBJECTIVE: VITAL SIGNS: His vital signs are normal. Saturations anywhere from 93% to 95% on room air. LUNGS: With symmetric air entry, S1, S2. Regular rate. Right sternoclavicular joint is swollen and moderately tender. Moves all extremities equally. LABORATORY DATA: White cell count 11.2, hemoglobin 9.1, platelets 385. Creatinine 0.78. The ROBB was done by Dr. Bourgeois demonstrated severe mitral regurgitation and a small mass in the mitral valve, possible vegetation. 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 He is going to be transferred to rehab on IV cefazolin 2 g q.8. Job ID: [id number]
[2020-07-07] MEDS ORDERED: Digoxin 0.5 MG/2 ML AMP SLOW IVP SCH (17:15)
[2020-07-07] MEDS ORDERED: Diltiazem 125 MG in Sodium Chloride 0.9% 100 ML IVPB SCH (18:30)
--- NOTE | 2020-07-07 19:27 | PDOC.HOSPP ---
- Subjective Encounter Date: 07/07/20 Encounter Time: 19:26 Subjective: Patient seen for follow-up regarding A. mckayla with RVR. Denies chest pain or shortness of breath. - Objective Vital Signs & Weight: Vital Signs (12 hours) Temp Pulse Pulse Pulse Resp BP BP 07/07/20 17:31 147 H 07/07/20 16:50 120 H 95 95/95 H 07/07/20 15:15 97.6 F 95 16 07/07/20 11:53 97.9 F 87 16 07/07/20 08:05 89 99/58 L 07/07/20 08:00 07/07/20 07:29 98 F 89 16 BP BP BP Pulse Ox 07/07/20 17:31 07/07/20 16:50 128/61 07/07/20 15:15 128/61 93 L 07/07/20 11:53 114/61 95 07/07/20 08:05 07/07/20 08:00 93 L 07/07/20 07:29 99/58 L 93 L Weight Admit Weight 199 lb 8.293 oz Weight 199 lb 8.293 oz I&O: 07/06/20 07/07/20 07/08/20 06:59 06:59 06:59 Intake Total 2111 1500 300 Output Total 3650 1800 525 Balance -1539 -300 -225 Result Diagrams: 07/06/20 23:12 07/06/20 23:12 Additional Labs: Accuchecks 07/07/20 07/07/20 07/07/20 16:03 10:33 05:54 POC Glucose 242 H 177 H 195 H 07/06/20 20:31 POC Glucose 279 H I reviewed patient's labs and MAR EKG Reviewed by me: Yes (A. fib on telemetry) Hospitalist ROS - Review of Systems Cardiovascular: denies: chest pain, palpitations, orthopnea, paroxysmal noc. dyspnea, edema, light headedness Gastrointestinal: denies: nausea, vomiting, abdominal pain, diarrhea, constipation, melena, hematochezia - Medication Medications: Active Medications Generic Name Dose Route Start Last Admin Trade Name Freq PRN Reason Stop Dose Admin Acetaminophen 1,000 mg 06/26/20 14:52 07/07/20 05:49 Acetaminophen 500 Mg Tab PO 1,000 mg Q6H PRN Administration Mild Pain (1-3) Apixaban 5 mg 07/07/20 09:00 07/07/20 08:15 Apixaban 5 Mg Tab PO 5 mg BID JULIÁN Administration Ascorbic Acid 1,000 mg 06/25/20 09:00 07/07/20 08:01 Ascorbic Acid 500 Mg Chewable Tablet PO 1,000 mg DAILY JULIÁN Administration Aspirin 81 mg 06/25/20 09:00 07/07/20 08:02 Aspirin 81 Mg Enteric Coated Tablet PO 81 mg DAILY JULIÁN Administration Atorvastatin Calcium 40 mg 06/24/20 21:00 07/06/20 20:30 Atorvastatin Calcium 40 Mg Tab PO 40 mg HS JULIÁN Administration Cholecalciferol 400 units 06/25/20 09:00 07/07/20 08:02 Cholecalciferol (Vitamin D3) 400 Units Tab PO 400 units DAILY JULIÁN Administration Dexamethasone 6 mg 06/28/20 09:00 07/07/20 08:01 Dexamethasone 4 Mg/Ml Vial SLOW IVP 6 mg DAILY JULIÁN Administration Dronedarone 400 mg 07/03/20 17:00 07/07/20 17:11 Dronedarone Hcl 400 Mg Tab PO 400 mg BID-WM JULIÁN Administration Fluconazole 100 mg 07/07/20 09:00 07/07/20 08:13 Fluconazole 100 Mg Tab PO 07/09/20 09:01 100 mg DAILY JULIÁN Administration Insulin Glargine 15 units/ 0.15 mls @ 0 mls/hr 06/30/20 09:00 07/07/20 08:00 Miscellaneous Medication SC 0.15 mls QAM JULIÁN Administration Insulin Glargine 15 units/ 0.15 mls @ 0 mls/hr 06/30/20 21:00 07/06/20 20:31 Miscellaneous Medication SC 0.15 mls HS JULIÁN Administration Ceftriaxone Sodium 2 gm/ 100 mls @ 200 mls/hr 07/05/20 20:00 07/06/20 20:30 Sodium Chloride IVPB 100 mls Q24HR JULIÁN Administration Insulin Human Lispro 0 units 06/24/20 09:00 07/07/20 16:30 Humalog 300 Units/3 Ml Vial SC 6 units .AGGRESSIVE SLIDING PRN Administration Aggressive Correctional Scale Insulin Human Lispro 0 units 06/24/20 21:34 07/03/20 20:55 Humalog 300 Units/3 Ml Vial SC 3 unit .BEDTIME SLIDING SC PRN Administration Bedtime Correctional Scale Lidocaine 1 patch 06/27/20 22:00 07/06/20 20:36 Lidocaine 5% Patch TD Not Given 2200 JULIÁN Melatonin 6 mg 06/30/20 23:08 06/30/20 23:24 Melatonin 3 Mg Tab PO 6 mg HS PRN Administration Insomnia Miscellaneous Medication 1 each 06/28/20 10:00 07/07/20 09:23 Lidocaine Patch Removal 1 Each TOP 1 each 1000 JULIÁN Administration Nystatin 0 gm 07/07/20 09:00 07/07/20 16:39 Nystatin Cream 30 Gm Tube TOP 1 gm TID JULIÁN Administration Nystatin 1 gm 07/07/20 09:00 07/07/20 09:23 Nystatin Cream 15 Gm Tube TOP Not Given BID JULIÁN Ondansetron HCl 4 mg 06/23/20 21:09 07/06/20 14:38 Ondansetron Pf 4 Mg/2 Ml Vial IVP 4 mg Q6H PRN Administration Nausea/Vomiting use 1st Oxymetazoline HCl 0 ml 07/04/20 19:29 07/04/20 22:26 Oxymetazoline Hcl 0.05% (30 Ml Bot) NS 30 ml DAILY PRN Administration Bleeding Pantoprazole Sodium 40 mg 06/29/20 09:00 07/07/20 08:02 Pantoprazole 40 Mg Tab PO 40 mg DAILY JULIÁN Administration Polyethylene Glycol 17 gm 06/24/20 09:00 07/07/20 11:00 Polyethylene Glycol 3350 17 Gm Packet PO Not Given DAILY JULIÁN Sodium Chloride 10 ml 07/03/20 09:00 07/07/20 09:23 Flush - Normal Saline 10 Ml Syringe IVF 10 ml Q12HR JULIÁN Administration Sodium Chloride 0 ml 07/04/20 20:00 07/07/20 16:40 Sodium Chloride 0.65% Nasal 44 Ml Bot EA NARE 5 spr 5XD JULIÁN Administration Zinc Sulfate 220 mg 06/25/20 09:00 07/07/20 08:02 Zinc Sulfate 220 Mg Cap PO 220 mg DAILY JULIÁN Administration Hospitalist Exam Vitals: Vital Signs (12 hours) Temp Pulse Pulse Pulse Resp BP BP 07/07/20 17:31 147 H 07/07/20 16:50 120 H 95 95/95 H 07/07/20 15:15 97.6 F 95 16 02/12/21 11:53 97.9 F 87 16 07/07/20 08:05 89 99/58 L 07/07/20 08:00 07/07/20 07:29 98 F 89 16 BP BP BP Pulse Ox 07/07/20 17:31 07/07/20 16:50 128/61 07/07/20 15:15 128/61 93 L 07/07/20 11:53 114/61 95 07/07/20 08:05 07/07/20 08:00 93 L 07/07/20 07:29 99/58 L 93 L Weight Admit Weight 199 lb 8.293 oz Weight 199 lb 8.293 oz General Appearance: awake alert Eye: anicteric sclera ENT: normocephalic atraumatic Neck: supple Heart: irregular Respiratory: CTAB Gastrointestinal: soft Psychiatric: normal affect Hosp A/P - Plan Please refer to my discharge summary dated July 07, 2020 for further details regarding this hospitalization. Patient was supposed to be discharged to inpatient rehab. However, he developed A. fib with RVR. He received digoxin and converted to normal sinus rhythm. I am holding his discharge to observe him overnight. -Assessment (1) a. fib with RVR Status: Acute (2) Acute CVA (cerebrovascular accident) Code(s): I63.9 - CEREBRAL INFARCTION, UNSPECIFIED Status: Acute (3) Bacteremia Code(s): R78.81 - BACTEREMIA Status: Acute (4) Myositis Code(s): M60.9 - MYOSITIS, UNSPECIFIED Status: Acute (5) Osteomyelitis of toe Code(s): M86.9 - OSTEOMYELITIS, UNSPECIFIED Status: Acute (6) Pneumonia due to COVID-19 virus Code(s): U07.1 - COVID-19; J12.82 - PNEUMONIA DUE TO CORONAVIRUS DISEASE 2019 Status: Acute (7) Acute respiratory failure due to COVID-19 Code(s): U07.1 - COVID-19; J96.00 - ACUTE RESPIRATORY FAILURE, UNSP W HYPOXIA OR HYPERCAPNIA Status: Acute (8) DM type 2 (diabetes mellitus, type 2) Status: Chronic - Plan Strep bacterememia --Continue ceftriaxone, transition to Ancef when discharged to rehab --Infective endocarditis on ROBB Acute CVA - likely d/t septic emboli --Continue ASA/Statin. Sepsis, POA, likely secondary to left great toe osteomyelitis, s/p amputation on 06/26/20 --Continue ceftriaxone Left great toe osteomyelitis --Continue ceftriaxone --s/p amputation on 06/26 - wound vac in place. cont routine post cares. Acute hypoxic respiratory failure secondary to Covid 19 infection - unclear onset of symptoms, but weakness started about a week ago --continue O2 supplement as needed. Uncontrolled diabetes with DKA --Patient is on insulin sliding scale and Lantus Generalized weakness - much improved. HTN, essential --Continue Norvasc A. fib with RVR --Resolved
[2020-07-07] MEDS: cefTRIAXone\\ROCEPHIN 2 GM in Sodium Chloride 0.9% 100 ML IVPB SCH (21:01)
[2020-07-07] MEDS: Atorvastatin Calcium 40 MG TAB PO SCH (21:02)
[2020-07-07] MEDS: Lidocaine 5% Patch TD SCH (21:02)
[2020-07-08] MEDS ORDERED: Diltiazem 125 MG in Sodium Chloride 0.9% 100 ML IVPB SCH (00:15)
[2020-07-08] MEDS: Melatonin 3 MG TAB PO PRN (02:27)
[2020-07-08] MEDS: Acetaminophen 500 MG TAB PO PRN (02:27)
[2020-07-08 04:49] LABS: Hemoglobin 9.2 g/dL (14.0-18.0); Platelet Count 369 thou/uL (130-400)
[2020-07-08 05:18] LABS: Anion Gap 13 mmol/L (10-20); BUN (Urea Nitrogen) 12 mg/dL (8.4-25.7); Calc. Creatinine Clearance 152 mL/min (70-130); Calcium 7.9 mg/dL (7.8-10.44); Carbon Dioxide 29 mmol/L (22-29); Chloride 93 mmol/L (98-107); Glucose 191 mg/dL (70-105); Potassium 4.5 mmol/L (3.5-5.1); Sodium 130 mmol/L (136-145)
[2020-07-08] MEDS: Dexamethasone 4 mg/ml Vial SLOW IVP SCH (09:37)
[2020-07-08] MEDS: Furosemide 40 MG TAB PO SCH (09:44)
[2020-07-08] MEDS: Apixaban 5 MG TAB PO SCH ×2 (09:44→21:28)
[2020-07-08] MEDS: Zinc Sulfate 220 MG CAP PO SCH (09:45)
[2020-07-08] MEDS: Cholecalciferol (Vitamin D3) 400 UNITS TAB PO SCH (09:45)
[2020-07-08] MEDS: Fluconazole 100 MG TAB PO SCH (09:45)
[2020-07-08] MEDS: Aspirin 81 mg Enteric Coated Tablet PO SCH (09:45)
[2020-07-08] MEDS: Dronedarone HCl 400 MG TAB PO SCH ×2 (09:45→16:41)
[2020-07-08] MEDS: Ascorbic Acid 500 mg Chewable Tablet PO SCH (09:46)
[2020-07-08] MEDS: Sodium Chloride 0.65% Nasal 44 ML BOT EA NARE SCH ×4 (09:46→21:23)
[2020-07-08] MEDS: Nystatin Cream 15 GM TUBE TOP SCH ×2 (09:46→21:23)
[2020-07-08] MEDS: Polyethylene Glycol 3350 17 GM Packet PO SCH (09:47)
[2020-07-08] MEDS: Nystatin Cream 30 GM TUBE TOP SCH ×3 (09:47→21:28)
[2020-07-08] MEDS: Insulin Glargine 15 UNITS in Pre-Filled Syringe 1 EACH SC SCH ×2 (09:52→21:24)
--- NOTE | 2020-07-08 10:35 | PRG ---
DATE OF SERVICE: 07/08/2020 TIME OF SERVICE: 07:30 a.m. SUBJECTIVE: The patient is seen and evaluated at bedside. The patient currently in atrial fibrillation with rapid ventricular rate, well controlled though, currently on Cardizem drip per Cardiology Services, awaiting transitioning to oral rate control medications. OBJECTIVE: VITAL SIGNS: Temperature of 98.2 degrees Fahrenheit, pulse of 81 per minute, respiratory rate of 16 per minute, saturation 96% on room air, has blood pressure of 139/67 mmHg. HEENT: Atraumatic, normocephalic. NECK: Supple. No bruit. No lymphadenopathy. CVS: S1, S2 and paroxysmal atrial fibrillation. CHEST: Bilateral air entry present. Basilar rhonchi noted. ABDOMEN: Soft, nontender. Bowel sounds are present. EXTREMITIES: 2+ edema noted with left toe osteomyelitis. HEME: No ecchymosis or petechiae. PSYCH: Normal mood. DIAGNOSTIC STUDIES: We will do CBC, CMP tomorrow in a.m. Hemoglobin is 9.2, hematocrit 27.6. Sodium 130, potassium 4.5, chloride 93, carbon dioxide 29, anion gap is 13. BUN 12, creatinine 0.66. MEDICATIONS: The patient currently is on, 1. IV Rocephin 2 g every 24 hours. 2. Diltiazem. 3. Cardizem drip. 4. Insulin glargine 15 units q.a.m. and 15 units in p.m. 5. Eliquis 5 mg b.i.d. 6. Ascorbic acid 1000 mg daily. 7. Aspirin 81 mg daily. 8. Lipitor 40 mg at bedtime. 9. Cholecalciferol 10. Dexamethasone 6 mg IVP daily. 11. Multaq 400 mg b.i.d. 12. Lasix 40 mg daily. 13. Nystatin cream b.i.d. 14. Pantoprazole 40 mg daily. 15. Zinc sulfate 220 mg daily. 16. Clonidine 0.1 mg p.o. b.i.d. p.r.n. sliding scale insulin protocol. 17. Melatonin 6 mg p.o. at bedtime. ASSESSMENT: 1. Atrial fibrillation with rapid ventricular rate. Patient currently on IV Cardizem drip and Cardiology on consult. At some point of time, this to be transitioned to oral rate control medications along with continuation of Eliquis. 2. History of acute cerebrovascular accident. 3. Methicillin-sensitive Staphylococcus aureus bacteremia. The patient currently on IV Rocephin eventuality transition to Ancef every 8 hours at the longterm facility. 4. Myositis. 5. Left osteomyelitis of the toe, acute. 6. History of pneumonia secondary to COVID-19 virus treated, currently on IV Decadron. 7. Status post acute hypoxemic respiratory failure secondary to COVID-19. 8. Diabetes mellitus, type 2. PLAN: 1. Discussed in detail the diagnosis, treatment, and followup with the patient. Advised about continuation of IV Rocephin at this point of time and eventual transition to Ancef on discharge to rehab. The patient is status post transesophageal echocardiogram. For acute CVA, patient currently on aspirin and statin. 2. Sepsis secondary to left great toe osteomyelitis, status post amputation on 06/26/2020, on Rocephin. 3. Diabetes mellitus with history of DKA. 4. Benign essential hypertension. 5. Atrial fibrillation, rapid ventricular rate, paroxysmal in nature at this point of time. 6. Plan discussed in detail the diagnosis, treatment, and followup with the patient. Advised the patient about eventually transitioning him to oral rate control medications for paroxysmal atrial fibrillation. Discharge plan with Ancef every eight 8 hours per Infectious Disease recommendations. Likely, discharge plan in the next 24 to 48 hours. Advanced directives, full code for now. Job ID: [id number] MTDD
[2020-07-08] MEDS: Transdermal Patch Removal TOP SCH (12:10)
[2020-07-08] MEDS: HumaLOG 300 UNITS/3 ML VIAL SC PRN ×2 (12:18→16:56)
--- NOTE | 2020-07-08 15:50 | PDOC.CPN ---
- Subjective Date: 07/08/20 Time: 15:44 Interval history: Patient sitting in bed, just finished walking with PT, he is doing well, he denies any complaints. His spouse is at bedside - Review of Systems General: denies: fever/chills, weight/appetite/sleep changes, night sweats, fatigue Respiratory: denies: cough, congestion, shortness of breath, exercise intolerance Cardiovascular: denies: chest pain, palpitation, edema, paroxysmal nocturnal dyspnea, orthopnea Gastrointestinal: denies: nausea, vomiting, diarrhea, constipation, abd pain, GI bleeding Musculoskeletal: denies: pain, tenderness, stiffness, swelling, arthritis/arthralgias Neurological: denies: numbness, syncope, seizure, weakness - Objective Allergies/Adverse Reactions: Allergies Allergy/AdvReac Type Severity Reaction Status Date / Time No Known Allergies Allergy Unverified 06/24/20 13:36 Visit Medications: Current Medications Acetaminophen (Acetaminophen 500 Mg Tab) 1,000 mg PO Q6H PRN PRN Reason: Mild Pain (1-3) Last Admin: 07/08/20 02:27 Dose: 1,000 mg Documented by: Apixaban (Apixaban 5 Mg Tab) 5 mg PO BID [facility] Last Admin: 07/08/20 09:44 Dose: 5 mg Documented by: Ascorbic Acid (Ascorbic Acid 500 Mg Chewable Tablet) 1,000 mg PO DAILY [facility] Last Admin: 07/08/20 09:46 Dose: 1,000 mg Documented by: Aspirin (Aspirin 81 Mg Enteric Coated Tablet) 81 mg PO DAILY [facility] Last Admin: 07/08/20 09:45 Dose: 81 mg Documented by: Atorvastatin Calcium (Atorvastatin Calcium 40 Mg Tab) 40 mg PO HS [facility] Last Admin: 07/07/20 21:02 Dose: 40 mg Documented by: Bisacodyl (Bisacodyl 5 Mg Tab) 10 mg PO BID PRN PRN Reason: Constipation Cholecalciferol (Cholecalciferol (Vitamin D3) 400 Units Tab) 400 units PO DAILY [facility] Last Admin: 07/08/20 09:45 Dose: 400 units Documented by: Clonidine (Clonidine 0.1 Mg Tab) 0.1 mg PO BIDPRN PRN PRN Reason: SBP > 160, use second Dexamethasone (Dexamethasone 4 Mg/Ml Vial) 6 mg SLOW IVP DAILY [facility] Last Admin: 07/08/20 09:37 Dose: 6 mg Documented by: Dextrose/Water (Dextrose 50% Abboject 50 Ml Syringe) 25 gm SLOW IVP PRN PRN PRN Reason: Hypoglycemia Dronedarone (Dronedarone Hcl 400 Mg Tab) 400 mg PO BID-[facility] Last Admin: 07/08/20 09:45 Dose: 400 mg Documented by: Fluconazole (Fluconazole 100 Mg Tab) 100 mg PO DAILY [facility] Stop: 07/09/20 09:01 Last Admin: 07/08/20 09:45 Dose: 100 mg Documented by: Furosemide (Furosemide 40 Mg Tab) 40 mg PO DAILY-[facility] Last Admin: 07/08/20 09:44 Dose: 40 mg Documented by: Glucagon (Glucagon 1 Mg/Ml Vial) 1 mg IM PRN PRN PRN Reason: Hypoglycemia Guaifenesin/Dextromethorphan (Guaifenesin Dm 100-10/5 Ml Udcup) 15 ml PO Q4H PRN PRN Reason: Cough Hydralazine HCl (Hydralazine 20 Mg/Ml Vial) 10 mg SLOW IVP Q6H PRN PRN Reason: SBP GREATER THAN 160 Promethazine HCl 12.5 mg/ (Sodium Chloride) 50.5 mls @ 202 mls/hr IVPB Q6H PRN PRN Reason: Nausea/vomiting, use second Insulin Glargine 15 units/ (Miscellaneous Medication) 0.15 mls @ 0 mls/hr [facility] Last Admin: 07/08/20 09:52 Dose: 0.15 mls Documented by: Insulin Glargine 15 units/ (Miscellaneous Medication) 0.15 mls @ 0 mls/hr SC HS [facility] Last Admin: 07/07/20 21:06 Dose: 0.15 mls Documented by: Ceftriaxone Sodium 2 gm/ (Sodium Chloride) 100 mls @ 200 mls/hr IVPB Q24HR [facility] Last Admin: 07/07/20 21:01 Dose: 100 mls Documented by: Diltiazem HCl 125 mg/ Sodium (Chloride) 125 mls @ 5 mls/hr IVPB INF [facility]; Protocol Last Admin: 07/08/20 02:05 Dose: 125 mls Documented by: Insulin Human Lispro (Humalog 300 Units/3 Ml Vial) 0 units SC .AGGRESSIVE SLIDING PRN PRN Reason: Aggressive Correctional Scale Last Admin: 07/08/20 12:18 Dose: 3 units Documented by: Insulin Human Lispro (Humalog 300 Units/3 Ml Vial) 0 units SC .BEDTIME SLIDING SC PRN PRN Reason: Bedtime Correctional Scale Last Admin: 07/07/20 21:07 Dose: 3 unit Documented by: Labetalol HCl (Labetalol Hcl 100 Mg/20 Ml Vial) 20 mg SLOW IVP Q4H PRN PRN Reason: SBP > 160, use first Lidocaine (Lidocaine 5% Patch) 1 patch TD 2200 [facility] Last Admin: 07/07/20 21:02 Dose: 1 patch Documented by: Melatonin (Melatonin 3 Mg Tab) 6 mg PO HS PRN PRN Reason: Insomnia Last Admin: 07/08/20 02:27 Dose: 6 mg Documented by: Miscellaneous Medication (Lidocaine Patch Removal 1 Each) 1 each TOP 1000 [facility] Last Admin: 07/08/20 12:10 Dose: 1 each Documented by: Miscellaneous Medication (Electrolyte Replacement Protocol) 0 each FS ASDIR PRN; Protocol PRN Reason: ELECTROLYTE REPLACEMENT Nystatin (Nystatin Cream 30 Gm Tube) 0 gm TOP TID [facility] Last Admin: 07/08/20 09:47 Dose: Not Given Documented by: Nystatin (Nystatin Cream 15 Gm Tube) 1 gm TOP BID [facility] Last Admin: 07/08/20 09:46 Dose: 1 applic Documented by: Ondansetron HCl (Ondansetron Pf 4 Mg/2 Ml Vial) 4 mg IVP Q6H PRN PRN Reason: Nausea/Vomiting use 1st Last Admin: 07/06/20 14:38 Dose: 4 mg Documented by: Oxymetazoline HCl (Oxymetazoline Hcl 0.05% (30 Ml Bot)) 0 ml NS DAILY PRN PRN Reason: Bleeding Last Admin: 07/04/20 22:26 Dose: 30 ml Documented by: Pantoprazole Sodium (Pantoprazole 40 Mg Tab) 40 mg PO DAILY [facility] Last Admin: 07/08/20 09:46 Dose: 40 mg Documented by: Polyethylene Glycol (Polyethylene Glycol 3350 17 Gm Packet) 17 gm PO DAILY [facility] Last Admin: 07/08/20 09:47 Dose: Not Given Documented by: Sodium Chloride (Flush - Normal Saline 10 Ml Syringe) 10 ml IVF Q12HR [facility] Last Admin: 07/08/20 09:47 Dose: 10 ml Documented by: Sodium Chloride (Flush - Normal Saline 10 Ml Syringe) 10 ml IVF PRN PRN PRN Reason: Saline Flush Sodium Chloride (Sodium Chloride 0.65% Nasal 44 Ml Bot) 0 ml EA NARE 5XD [facility] Last Admin: 07/08/20 09:46 Dose: 5 spr Documented by: Zinc Sulfate (Zinc Sulfate 220 Mg Cap) 220 mg PO DAILY [facility] Last Admin: 07/08/20 09:45 Dose: 220 mg Documented by: Vital Signs & Weight: Vital Signs Temp Pulse Resp BP BP Pulse Ox 07/08/20 15:24 98.4 F 84 16 131/60 95 07/08/20 11:14 97.8 F 83 16 95/51 L 96 07/08/20 07:33 98.2 F 81 16 139/67 96 07/08/20 04:00 98.0 F 90 20 132/58 L 96 Admit Weight 199 lb 8.293 oz Weight 199 lb 8.293 oz - Physical Exam General: alert & oriented x3, appears well, no apparent distress HEENT: mucus membranes moist Neck: no JVD/HJR, no bruit Cardiac: no murmur, regular rate, regular rhythm, S1/S2 Lungs: clear to auscultation, normal breath sounds, normal exam, no wheeze, rales, rhonchi Neuro: grossly intact, motor function intact Abdomen: active bowel sounds, soft, distended Extremities: 1+ LE edema, 2+ Posterior Tibial, 2+ Dorsalis Pedus Skin: clear, wound, other (Wound vac to left foot, left foot wrapped in YENY bandage, dressing clean, dry & intact) Musculoskeletal: no pain - Labs Result Diagrams: 07/08/20 04:32 07/08/20 04:32 Troponin/CKMB CK-MB (CK-2) 0.8 ng/mL (0-6.6) 06/23/20 15:51 Troponin I 0.087 ng/mL (< 0.028) H 06/23/20 15:51 - EKG Interpretation EKG Method: Telemetry EKG: sinus rhythm (patient converted from atrial fibrillation to NSR at 0230 this morning, he remains rate controlled.) - Assessment/Plan Assessment/Plan: 1. New onset atrial fibrillation: he has converted to NSR this morning at 0230, we will stop the Cardizem drip. He is on Multaq & Eliquis 2. Multiple small bilateral infarcts seen on MRI 3. Recent COVID infection 4. history of severe mitral valve regurgitation and mitral valve prolapse 5. osteomyelitis of left great toe s/p left great toe amputation: he has a PICC line, he will receive IV antibiotics for this, treated by primary care services 6. Bilateral lower extremity edema, he has 1+ BLE edema, he is on PO Lasix for this, since discontinuing the Cardizem, will continue to monitor and monitor I & O
[2020-07-08] MEDS: cefTRIAXone\\ROCEPHIN 2 GM in Sodium Chloride 0.9% 100 ML IVPB SCH (21:23)
[2020-07-08] MEDS: Lidocaine 5% Patch TD SCH (21:24)
[2020-07-08] MEDS: Atorvastatin Calcium 40 MG TAB PO SCH (21:29)
[2020-07-09] MEDS: Sodium Chloride 0.65% Nasal 44 ML BOT EA NARE SCH ×5 (00:30→21:11)
[2020-07-09 05:48] LABS: #Eosinphils 0.2 thou/uL (0.0-0.7); #Lymphocytes 1.7 thou/uL (1.20-3.40); #Monocytes 0.8 thou/uL (0.11-0.59); %Basophils 0.4 % (0.0-1.0); %Eosinophils 1.3 % (0.0-10.0); %Lymphocytes 14.2 % (21.0-51.0); %Monocytes 7.2 % (0.0-10.0); Hemoglobin 10.6 g/dL (14.0-18.0); Mean Corpuscular HGB CONC 32.2 g/dL (32.0-36.0); Mean Corpuscular Hemoglobin 28.8 pg (27.0-31.0); Mean Corpuscular Volume 89.3 fL (78.0-98.0); Mean Platelet Volume 7.5 fL (7.4-10.4); Platelet Count 383 thou/uL (130-400); RBC Distribution Width 15.8 % (11.5-14.5); White Blood Cell (WBC) Count 11.7 thou/uL (4.8-10.8)
[2020-07-09] MEDS: HumaLOG 300 UNITS/3 ML VIAL SC PRN ×3 (06:09→17:03)
[2020-07-09 06:10] LABS: ALT (SGPT) 17 U/L (8-55); AST (SGOT) 23 U/L (5-34); Albumin 2.4 g/dL (3.5-5.0); Alkaline Phosphatase 96 U/L (40-110); Anion Gap 11 mmol/L (10-20); BUN (Urea Nitrogen) 13 mg/dL (8.4-25.7); Bilirubin, Total 0.3 mg/dL (0.2-1.2); Calc. Creatinine Clearance 127 mL/min (70-130); Calcium 8.2 mg/dL (7.8-10.44); Carbon Dioxide 33 mmol/L (22-29); Chloride 95 mmol/L (98-107); Globulin 4.5 g/dL (2.4-3.5); Glucose 169 mg/dL (70-105); Potassium 3.8 mmol/L (3.5-5.1); Protein, Total 6.9 g/dL (6.0-8.3); Sodium 135 mmol/L (136-145)
[2020-07-09] MEDS: Furosemide 40 MG TAB PO SCH (06:11)
[2020-07-09] MEDS: Insulin Glargine 15 UNITS in Pre-Filled Syringe 1 EACH SC SCH ×2 (08:48→21:11)
[2020-07-09] MEDS: Fluconazole 100 MG TAB PO SCH (08:49)
[2020-07-09] MEDS: Dronedarone HCl 400 MG TAB PO SCH ×2 (08:50→17:03)
[2020-07-09] MEDS: Aspirin 81 mg Enteric Coated Tablet PO SCH (08:50)
[2020-07-09] MEDS: Apixaban 5 MG TAB PO SCH ×2 (08:50→21:11)
[2020-07-09] MEDS: Zinc Sulfate 220 MG CAP PO SCH (08:50)
[2020-07-09] MEDS: Cholecalciferol (Vitamin D3) 400 UNITS TAB PO SCH (08:50)
[2020-07-09] MEDS: Dexamethasone 4 mg/ml Vial SLOW IVP SCH (08:51)
[2020-07-09] MEDS: Ascorbic Acid 500 mg Chewable Tablet PO SCH (08:51)
[2020-07-09] MEDS: Polyethylene Glycol 3350 17 GM Packet PO SCH (08:52)
[2020-07-09] MEDS: Transdermal Patch Removal TOP SCH (08:52)
[2020-07-09] MEDS: Nystatin Cream 30 GM TUBE TOP SCH (08:53)
--- NOTE | 2020-07-09 10:52 | PDOC.HOSPP ---
- Subjective Encounter Date: 07/09/20 Subjective: No acute events overnight. Patient seen this morning sitting in chair without cardiopulmonary distress. I asked her a lot of his question regarding ongoing medical issues and plan of care moving forward. - Objective Vital Signs & Weight: Vital Signs (12 hours) Temp Pulse Resp BP BP Pulse Ox 07/09/20 08:00 97.7 F 102 H 18 129/71 96 07/09/20 04:28 97.7 F 95 18 129/68 98 Weight Admit Weight 199 lb 8.293 oz Weight 199 lb 8.293 oz I&O: 07/08/20 07/09/20 07/10/20 06:59 06:59 06:59 Intake Total 1100 495 Output Total 1707 7680 Balance -600 -7082 Result Diagrams: 07/09/20 05:35 07/09/20 05:35 Additional Labs: Accuchecks 07/09/20 07/08/20 07/08/20 06:08 19:44 16:52 POC Glucose 174 H 246 H 243 H 07/08/20 11:14 POC Glucose 195 H Hospitalist ROS - Medication Medications: Active Medications Generic Name Dose Route Start Last Admin Trade Name Freq PRN Reason Stop Dose Admin Acetaminophen 1,000 mg 06/26/20 14:52 07/08/20 02:27 Acetaminophen 500 Mg Tab PO 1,000 mg Q6H PRN Administration Mild Pain (1-3) Apixaban 5 mg 07/07/20 09:00 07/09/20 08:50 Apixaban 5 Mg Tab PO 5 mg BID JULIÁN Administration Ascorbic Acid 1,000 mg 06/25/20 09:00 07/09/20 08:51 Ascorbic Acid 500 Mg Chewable Tablet PO 1,000 mg DAILY [facility] Administration Aspirin 81 mg 06/25/20 09:00 07/09/20 08:50 Aspirin 81 Mg Enteric Coated Tablet PO 81 mg DAILY [facility] Administration Atorvastatin Calcium 40 mg 06/24/20 21:00 07/08/20 21:29 Atorvastatin Calcium 40 Mg Tab PO 40 mg HS [facility] Administration Cholecalciferol 400 units 06/25/20 09:00 07/09/20 08:50 Cholecalciferol (Vitamin D3) 400 Units Tab PO 400 units DAILY [facility] Administration Dexamethasone 6 mg 06/28/20 09:00 07/09/20 08:51 Dexamethasone 4 Mg/Ml Vial SLOW IVP 6 mg DAILY [facility] Administration Dronedarone 400 mg 07/03/20 17:00 07/09/20 08:50 Dronedarone Hcl 400 Mg Tab PO 400 mg BID-WM [facility]ULIÁN Administration Furosemide 40 mg 07/08/20 07:30 07/09/20 06:11 Furosemide 40 Mg Tab PO 40 mg DAILY-AC [facility]N Administration Insulin Glargine 15 units/ 0.15 mls @ 0 mls/hr 06/30/20 09:00 07/09/20 08:48 Miscellaneous Medication SC 0.15 mls QAM JULIÁN Administration Insulin Glargine 15 units/ 0.15 mls @ 0 mls/hr 06/30/20 21:00 07/08/20 21:24 Miscellaneous Medication SC 0.15 mls HS JULIÁN Administration Ceftriaxone Sodium 2 gm/ 100 mls @ 200 mls/hr 07/05/20 20:00 07/08/20 21:23 Sodium Chloride IVPB 100 mls Q24HR [facility]N Administration Insulin Human Lispro 0 units 06/24/20 09:00 07/09/20 06:09 Humalog 300 Units/3 Ml Vial SC 3 units .AGGRESSIVE SLIDING PRN Administration Aggressive Correctional Scale Insulin Human Lispro 0 units 06/24/20 21:34 07/07/20 21:07 Humalog 300 Units/3 Ml Vial SC 3 unit .BEDTIME SLIDING SC PRN Administration Bedtime Correctional Scale Lidocaine 1 patch 06/27/20 22:00 07/08/20 21:24 Lidocaine 5% Patch TD Not Given 2200 JULIÁN Melatonin 6 mg 06/30/20 23:08 07/08/20 02:27 Melatonin 3 Mg Tab PO 6 mg HS PRN Administration Insomnia Miscellaneous Medication 1 each 06/28/20 10:00 07/09/20 08:52 Lidocaine Patch Removal 1 Each TOP 1 each 1000 [facility]N Administration Nystatin 1 gm 07/07/20 09:00 07/08/20 21:23 Nystatin Cream 15 Gm Tube TOP 1 applic BID [facility] Administration Ondansetron HCl 4 mg 06/23/20 21:09 07/06/20 14:38 Ondansetron Pf 4 Mg/2 Ml Vial IVP 4 mg Q6H PRN Administration Nausea/Vomiting use 1st Oxymetazoline HCl 0 ml 07/04/20 19:29 07/04/20 22:26 Oxymetazoline Hcl 0.05% (30 Ml Bot) NS 30 ml DAILY PRN Administration Bleeding Pantoprazole Sodium 40 mg 06/29/20 09:00 07/09/20 08:50 Pantoprazole 40 Mg Tab PO 40 mg DAILY [facility] Administration Polyethylene Glycol 17 gm 06/24/20 09:00 07/09/20 08:52 Polyethylene Glycol 3350 17 Gm Packet PO Not Given DAILY [facility] Sodium Chloride 10 ml 07/03/20 09:00 07/09/20 08:52 Flush - Normal Saline 10 Ml Syringe IVF 10 ml Q12HR [facility]UL[facility]N Administration Sodium Chloride 0 ml 07/04/20 20:00 07/09/20 08:53 Sodium Chloride 0.65% Nasal 44 Ml Bot EA NARE Not Given 5XD JULI[facility]N Zinc Sulfate 220 mg 06/25/20 09:00 07/09/20 08:50 Zinc Sulfate 220 Mg Cap PO 220 mg DAILY [facility]N Administration Hospitalist Exam Vitals: Vital Signs (12 hours) Temp Pulse Resp BP BP Pulse Ox 07/09/20 08:00 97.7 F 102 H 18 129/71 96 07/09/20 04:28 97.7 F 95 18 129/68 98 Weight Admit Weight 199 lb 8.293 oz Weight 199 lb 8.293 oz General Appearance: NAD General - other findings: Slightly lethargic Eye: anicteric sclera ENT: normocephalic atraumatic Neck: supple Heart: murmur present Respiratory: CTAB, no wheezes, no ronchi Gastrointestinal: soft, non-tender, non-distended Extremities: 1+ LE edema Extremities - other findings: Bilateral ankle edema Neurological: cranial nerve grossly intact Psychiatric: normal affect Hosp A/P (1) Rapid atrial fibrillation Code(s): I48.91 - UNSPECIFIED ATRIAL FIBRILLATION Status: Acute Plan: As per impression (2) Infective endocarditis Code(s): I33.0 - ACUTE AND SUBACUTE INFECTIVE ENDOCARDITIS Status: Acute Plan: As per impression (3) Severe mitral valve regurgitation Code(s): I34.0 - NONRHEUMATIC MITRAL (VALVE) INSUFFICIENCY Status: Acute Plan: As per impression (4) Mitral valve prolapse Code(s): I34.1 - NONRHEUMATIC MITRAL (VALVE) PROLAPSE Status: Acute Plan: As per impression (5) Bacteremia Code(s): R78.81 - BACTEREMIA Status: Acute Plan: As per impression (6) DM type 2 (diabetes mellitus, type 2) Status: Acute Plan: As per impression (7) Myositis Code(s): M60.9 - MYOSITIS, UNSPECIFIED Status: Acute Plan: As per impression (8) Osteomyelitis of toe Code(s): M86.9 - OSTEOMYELITIS, UNSPECIFIED Status: Acute Plan: As per impression - Plan Assessment This is a 59-year-old male presented to the hospital with worsening neck and back pain along with bilateral lower extremity weakness. He has had multiple falls prior to presentation. Had a history of Saulo-Tyson virus and the above symptoms have been progressing since his diagnosis. He also tested positive for COVID-19. Primary team at the time of admission initiated IVIG due to concern for ascending paralysis. Spine MRI did not reveal any lesions. Brain MRI showed multiple small acute infarcts OF the cerebral region in the watershed area between the MCA and SYBIL region, and cerebellar regions. Neurology was consulted due to concern for ascending paralysis. Recommended discontinuing IVIG. Due to concern for encephalitis/meningitis and diffuse neuromuscular deterioration in the setting of Covid 19, patient had a lumbar puncture which was unremarkable. She was also found to have left great toe cellulitis which was amputated. His hospital course was further complicated by Streptococcus pyogenous and MSSA bacteremia for which he is currently on ceftriaxone. He was getting ready to be discharged when he developed rapid A. fib, which was further worked up. Underwent a DCCV after ROBB. Normal sinus rhythm has been restored. There is suspicion for small vegetation on echocardiogram. This time patient is medically cleared pending discharge. New onset A. fib status post DCCV and ROBB Possible infective endocarditis Streptococcus pyogenous and MSSA bacteremia Acute CVA Diffuse idiopathic skeletal hyperostosis Physical deconditioning Plan: Continue dronaderone for rate control Apixaban for CVA prevention Continue ceftriaxone 2 g every 24 hours. Patient already has a PICC line in place. Will plan to treat for 4 weeks. Continue IV dexamethasone while in-house Continue vitamin C, D and zinc Lovenox for DVT prophylaxis Famotidine for GI prophylaxis Continue clonidine and hydralazine for blood pressure control Oral furosemide for fluid management Lantus 15 units twice daily with insulin sliding scale Patient is medically cleared ending transfer to rehab After completion of antibiotics above, he will need to follow-up with cardiology for valve replacement.
--- NOTE | 2020-07-09 11:15 | PDOC.CPN ---
- Subjective Date: 07/09/20 Time: 10:30 Interval history: Patient sitting up in bed, alert and oriented, denies any complaints, states that he feels great, he did have intermittent episodes of atrial fibrillation last night HR ranging from 110'140's the patient was asymptomatic, he denied any chest pain, shortness of breath, fatigue, dyspnea on exertion, palpitations. He is currently in sinus rhythm, heart rate 90 - Review of Systems General: denies: fever/chills, weight/appetite/sleep changes, night sweats, fatigue Respiratory: denies: cough, congestion, shortness of breath, exercise intolerance Cardiovascular: reports: edema. denies: chest pain, palpitation, paroxysmal nocturnal dyspnea, orthopnea Gastrointestinal: denies: nausea, vomiting, diarrhea, constipation, abd pain, GI bleeding Musculoskeletal: denies: pain, tenderness, stiffness, swelling, arthritis/arthralgias Neurological: denies: numbness, syncope, seizure, weakness - Objective Allergies/Adverse Reactions: Allergies Allergy/AdvReac Type Severity Reaction Status Date / Time No Known Allergies Allergy Unverified 06/24/20 13:36 Visit Medications: Current Medications Acetaminophen (Acetaminophen 500 Mg Tab) 1,000 mg PO Q6H PRN PRN Reason: Mild Pain (1-3) Last Admin: 07/08/20 02:27 Dose: 1,000 mg Documented by: Apixaban (Apixaban 5 Mg Tab) 5 mg PO BID [facility] Last Admin: 07/09/20 08:50 Dose: 5 mg Documented by: Ascorbic Acid (Ascorbic Acid 500 Mg Chewable Tablet) 1,000 mg PO DAILY [facility] Last Admin: 07/09/20 08:51 Dose: 1,000 mg Documented by: Aspirin (Aspirin 81 Mg Enteric Coated Tablet) 81 mg PO DAILY [facility] Last Admin: 07/09/20 08:50 Dose: 81 mg Documented by: Atorvastatin Calcium (Atorvastatin Calcium 40 Mg Tab) 40 mg PO HS [facility] Last Admin: 07/08/20 21:29 Dose: 40 mg Documented by: Bisacodyl (Bisacodyl 5 Mg Tab) 10 mg PO BID PRN PRN Reason: Constipation Cholecalciferol (Cholecalciferol (Vitamin D3) 400 Units Tab) 400 units PO DAILY [facility] Last Admin: 07/09/20 08:50 Dose: 400 units Documented by: Clonidine (Clonidine 0.1 Mg Tab) 0.1 mg PO BIDPRN PRN PRN Reason: SBP > 160, use second Dexamethasone (Dexamethasone 4 Mg/Ml Vial) 6 mg SLOW IVP DAILY [facility] Last Admin: 07/09/20 08:51 Dose: 6 mg Documented by: Dextrose/Water (Dextrose 50% Abboject 50 Ml Syringe) 25 gm SLOW IVP PRN PRN PRN Reason: Hypoglycemia Dronedarone (Dronedarone Hcl 400 Mg Tab) 400 mg PO BID-[facility] Last Admin: 07/09/20 08:50 Dose: 400 mg Documented by: Furosemide (Furosemide 40 Mg Tab) 40 mg PO DAILY-[facility] Last Admin: 07/09/20 06:11 Dose: 40 mg Documented by: Glucagon (Glucagon 1 Mg/Ml Vial) 1 mg IM PRN PRN PRN Reason: Hypoglycemia Guaifenesin/Dextromethorphan (Guaifenesin Dm 100-10/5 Ml Udcup) 15 ml PO Q4H PRN PRN Reason: Cough Hydralazine HCl (Hydralazine 20 Mg/Ml Vial) 10 mg SLOW IVP Q6H PRN PRN Reason: SBP GREATER THAN 160 Promethazine HCl 12.5 mg/ (Sodium Chloride) 50.5 mls @ 202 mls/hr IVPB Q6H PRN PRN Reason: Nausea/vomiting, use second Insulin Glargine 15 units/ (Miscellaneous Medication) 0.15 mls @ 0 mls/[facility] [place] [facility] [place] Admin: 07/09/20 08:48 Dose: 0.15 mls Documented by: Insulin Glargine 15 units/ (Miscellaneous Medication) 0.15 mls @ 0 mls/hr SC [facility] Last Admin: 07/08/20 21:24 Dose: 0.15 mls Documented by: Ceftriaxone Sodium 2 gm/ (Sodium Chloride) 100 mls @ 200 mls/hr IVPB Q24HR [facility] Last Admin: 07/08/20 21:23 Dose: 100 mls Documented by: Insulin Human Lispro (Humalog 300 Units/3 Ml Vial) 0 units SC .AGGRESSIVE SLIDING PRN PRN Reason: Aggressive Correctional Scale Last Admin: 07/09/20 06:09 Dose: 3 units Documented by: Insulin Human Lispro (Humalog 300 Units/3 Ml Vial) 0 units SC .BEDTIME SLIDING SC PRN PRN Reason: Bedtime Correctional Scale Last Admin: 07/07/20 21:07 Dose: 3 unit Documented by: Labetalol HCl (Labetalol Hcl 100 Mg/20 Ml Vial) 20 mg SLOW IVP Q4H PRN PRN Reason: SBP > 160, use first Lidocaine (Lidocaine 5% Patch) 1 patch TD 2200 [facility] Last Admin: 07/08/20 21:24 Dose: Not Given Documented by: Melatonin (Melatonin 3 Mg Tab) 6 mg PO HS PRN PRN Reason: Insomnia Last Admin: 07/08/20 02:27 Dose: 6 mg Documented by: Miscellaneous Medication (Lidocaine Patch Removal 1 Each) 1 each TOP 1000 [facility] Last Admin: 07/09/20 08:52 Dose: 1 each Documented by: Miscellaneous Medication (Electrolyte Replacement Protocol) 0 each FS ASDIR PRN; Protocol PRN Reason: ELECTROLYTE REPLACEMENT Nystatin (Nystatin Cream 15 Gm Tube) 1 gm TOP BID [facility] Last Admin: 07/08/20 21:23 Dose: 1 applic Documented by: Ondansetron HCl (Ondansetron Pf 4 Mg/2 Ml Vial) 4 mg IVP Q6H PRN PRN Reason: Nausea/Vomiting use 1st Last Admin: 07/06/20 14:38 Dose: 4 mg Documented by: Oxymetazoline HCl (Oxymetazoline Hcl 0.05% (30 Ml Bot)) 0 ml NS DAILY PRN PRN Reason: Bleeding Last Admin: 07/04/20 22:26 Dose: 30 ml Documented by: Pantoprazole Sodium (Pantoprazole 40 Mg Tab) 40 mg PO DAILY [facility] Last Admin: 07/09/20 08:50 Dose: 40 mg Documented by: Polyethylene Glycol (Polyethylene Glycol 3350 17 Gm Packet) 17 gm PO DAILY [facility] Last Admin: 07/09/20 08:52 Dose: Not Given Documented by: Sodium Chloride (Flush - Normal Saline 10 Ml Syringe) 10 ml IVF Q12HR [facility] Last Admin: 07/09/20 08:52 Dose: 10 ml Documented by: Sodium Chloride (Flush - Normal Saline 10 Ml Syringe) 10 ml IVF PRN PRN PRN Reason: Saline Flush Sodium Chloride (Sodium Chloride 0.65% Nasal 44 Ml Bot) 0 ml EA NARE 5XD [facility] Last Admin: 07/09/20 08:53 Dose: Not Given Documented by: Zinc Sulfate (Zinc Sulfate 220 Mg Cap) 220 mg PO DAILY [facility] Last Admin: 07/09/20 08:50 Dose: 220 mg Documented by: Vital Signs & Weight: Vital Signs Temp Pulse Resp BP BP Pulse Ox 07/09/20 08:00 97.7 F 102 H 18 129/71 96 07/09/20 04:28 97.7 F 95 18 129/68 98 Admit Weight 199 lb 8.293 oz Weight 199 lb 8.293 oz - Quality Measures Condition: Atrial Fibrillation/Flutter (hx or current) CV meds: ASA: Yes, Anticoagulant: Yes - Physical Exam General: alert & oriented x3, appears well, no apparent distress HEENT: mucus membranes moist Neck: supple neck, no JVD/HJR, no bruit Cardiac: regular rate, regular rhythm, systolic murmur, other (systolic murmur at apex) Lungs: normal breath sounds, normal exam, no wheeze, rales, rhonchi, other (good air movement) Neuro: grossly intact, motor function intact, sensory function intact Abdomen: active bowel sounds, soft, non-tender Extremities: no cyanosis, no clubbing, 1+ LE edema, 2+ Posterior Tibial, 2+ Dorsalis Pedus Skin: clear, wound, other (EYNY bandage to left foot, wound vac to left great toe from recent amputation, dressing clean, dry, intact) Musculoskeletal: normal range of motion, no pain - Labs Result Diagrams: 07/09/20 05:35 07/09/20 05:35 Troponin/CKMB CK-MB (CK-2) 0.8 ng/mL (0-6.6) 06/23/20 15:51 Troponin I 0.087 ng/mL (< 0.028) H 06/23/20 15:51 - EKG Interpretation EKG Method: Telemetry EKG: sinus rhythm (HR 90's, currently in sinus rhythm, did have intermittent episodes of atrial fibrillation throughout the night per telemetry records) - Assessment/Plan Assessment/Plan: 1. New onset atrial fibrillation: He is a CHADSVASC score of 3, his stroke risk per year is 3.2%. He is currently on Multaq & Eliquis. His Cardizem drip was stopped yesterday, throughout the night he did have intermittent episodes of atrial fibrillation with heart rates into the 140's per telemetry records, the patient was asymptomatic. His BP was been well controlled. Will add PO Cardizem 120 mg PO daily to help with rate control. 2. Multiple small bilateral infarcts seen on MRI 3. Recent COVID infection 4. Severe mitral valve regurgitation and mitral valve prolapse: most recent ECHO revealed severe mitral regurgitation, 3/6 holosystolic murmur auscultated at apex 5. Osteomyelitis of left great toe s/p left great toe amputation: he has a PICC line, he will receive IV antibiotics through a PICC for this, treated by primary care services 6. Bilateral lower extremity edema, he has 1+ BLE edema, he is on PO Lasix for this, we was able to diureis over 2000mL of fluid within the last 24 hours, his edema is present but decreased compared to yesterday. Will continue current treatment 7. Possible infective endocarditis: a vegetation was seen on the mitral valve leaflets
[2020-07-09] MEDS: Nystatin Cream 15 GM TUBE TOP SCH ×2 (12:22→21:25)
[2020-07-09] MEDS: Atorvastatin Calcium 40 MG TAB PO SCH (21:11)
[2020-07-09] MEDS: cefTRIAXone\\ROCEPHIN 2 GM in Sodium Chloride 0.9% 100 ML IVPB SCH (21:11)
[2020-07-09] MEDS: Lidocaine 5% Patch TD SCH (23:59)
[2020-07-10] MEDS: Sodium Chloride 0.65% Nasal 44 ML BOT EA NARE SCH ×6 (01:11→23:53)
[2020-07-10] MEDS: Insulin Glargine 15 UNITS in Pre-Filled Syringe 1 EACH SC SCH ×2 (10:55→21:03)
[2020-07-10] MEDS: Dronedarone HCl 400 MG TAB PO SCH ×2 (10:55→18:57)
[2020-07-10] MEDS: Transdermal Patch Removal TOP SCH (10:55)
--- NOTE | 2020-07-10 11:11 | PDOC.HOSPP ---
- Subjective Encounter Date: 07/10/20 Subjective: Patient is having mild epistaxis this morning. Afrin ordered. Otherwise, he is feeling well. Is ambulating without shortness of breath. - Objective Vital Signs & Weight: Vital Signs (12 hours) Temp Pulse Resp BP Pulse Ox 07/10/20 00:00 98.1 F 82 14 130/61 99 Weight Admit Weight 199 lb 8.293 oz Weight 199 lb 8.293 oz I&O: 07/09/20 07/10/20 07/11/20 06:59 06:59 06:59 Intake Total 495 Output Total 2620 2124 Balance -2124 -2124 Result Diagrams: 07/09/20 05:35 07/09/20 05:35 Additional Labs: Accuchecks 07/09/20 07/09/20 21:05 16:34 POC Glucose 259 H 218 H Hospitalist ROS - Medication Medications: Active Medications Generic Name Dose Route Start Last Admin Trade Name Freq PRN Reason Stop Dose Admin Acetaminophen 1,000 mg 06/26/20 14:52 07/08/20 02:27 Acetaminophen 500 Mg Tab PO 1,000 mg Q6H PRN Administration Mild Pain (1-3) Apixaban 5 mg 07/07/20 09:00 07/09/20 21:11 Apixaban 5 Mg Tab PO 5 mg BID JUL[facility]N Administration Ascorbic Acid 1,000 mg 06/25/20 09:00 07/09/20 08:51 Ascorbic Acid 500 Mg Chewable Tablet PO 1,000 mg DAILY [facility] Administration Aspirin 81 mg 06/25/20 09:00 07/09/20 08:50 Aspirin 81 Mg Enteric Coated Tablet PO 81 mg DAILY [facility] Administration Atorvastatin Calcium 40 mg 06/24/20 21:00 07/09/20 21:11 Atorvastatin Calcium 40 Mg Tab PO 40 mg HS JUL[facility]N Administration Cholecalciferol 400 units 06/25/20 09:00 07/09/20 08:50 Cholecalciferol (Vitamin D3) 400 Units Tab PO 400 units DAILY [facility] Administration Dexamethasone 6 mg 06/28/20 09:00 07/09/20 08:51 Dexamethasone 4 Mg/Ml Vial SLOW IVP 6 mg DAILY [facility]UL[facility]N Administration Dronedarone 400 mg 07/03/20 17:00 07/09/20 17:03 Dronedarone Hcl 400 Mg Tab PO 400 mg BID- [facility] Administration Furosemide 40 mg 07/08/20 07:30 07/09/20 06:11 Furosemide 40 Mg Tab PO 40 mg DAILY-AC JUL[facility]N Administration Insulin Glargine 15 units/ 0.15 mls @ 0 mls/hr 06/30/20 09:00 07/09/20 08:48 Miscellaneous Medication SC 0.15 mls QAM JUL[facility]N Administration Insulin Glargine 15 units/ 0.15 mls @ 0 mls/hr 06/30/20 21:00 07/09/20 21:11 Miscellaneous Medication SC 0.15 mls HS JULIÁN Administration Ceftriaxone Sodium 2 gm/ 100 mls @ 200 mls/hr 07/05/20 20:00 07/09/20 21:11 Sodium Chloride IVPB 100 mls Q24HR JUL[facility]N Administration Insulin Human Lispro 0 units 06/24/20 09:00 07/09/20 17:03 Humalog 300 Units/3 Ml Vial SC 6 units .AGGRESSIVE SLIDING PRN Administration Aggressive Correctional Scale Insulin Human Lispro 0 units 06/24/20 21:34 07/07/20 21:07 Humalog 300 Units/3 Ml Vial SC 3 unit .BEDTIME SLIDING SC PRN Administration Bedtime Correctional Scale Lidocaine 1 patch 06/27/20 22:00 07/09/20 23:59 Lidocaine 5% Patch TD Not Given 2200 JUL[facility]N Melatonin 6 mg 06/30/20 23:08 07/08/20 02:27 Melatonin 3 Mg Tab PO 6 mg HS PRN Administration Insomnia Miscellaneous Medication 1 each 06/28/20 10:00 07/09/20 08:52 Lidocaine Patch Removal 1 Each TOP 1 each 1000 JUL[facility]N Administration Nystatin 1 gm 07/07/20 09:00 07/09/20 21:25 Nystatin Cream 15 Gm Tube TOP 1 applic BID [facility]N Administration Ondansetron HCl 4 mg 06/23/20 21:09 07/06/20 14:38 Ondansetron Pf 4 Mg/2 Ml Vial IVP 4 mg Q6H PRN Administration Nausea/Vomiting use 1st Oxymetazoline HCl 0 ml 07/04/20 19:29 07/04/20 22:26 Oxymetazoline Hcl 0.05% (30 Ml Bot) NS 30 ml DAILY PRN Administration Bleeding Pantoprazole Sodium 40 mg 06/29/20 09:00 07/09/20 08:50 Pantoprazole 40 Mg Tab PO 40 mg DAILY [facility]UL[facility]N Administration Polyethylene Glycol 17 gm 06/24/20 09:00 07/09/20 08:52 Polyethylene Glycol 3350 17 Gm Packet PO Not Given DAILY [facility] Sodium Chloride 10 ml 07/03/20 09:00 07/09/20 21:12 Flush - Normal Saline 10 Ml Syringe IVF 10 ml Q12HR JUL[facility]N Administration Sodium Chloride 0 ml 07/04/20 20:00 07/10/20 01:11 Sodium Chloride 0.65% Nasal 44 Ml Bot EA NARE Not Given 5XD JUL[facility]N Zinc Sulfate 220 mg 06/25/20 09:00 07/09/20 08:50 Zinc Sulfate 220 Mg Cap PO 220 mg DAILY JUL[facility]N Administration Hospitalist Exam Vitals: Vital Signs (12 hours) Temp Pulse Resp BP Pulse Ox 07/10/20 00:00 98.1 F 82 14 130/61 99 Weight Admit Weight 199 lb 8.293 oz Weight 199 lb 8.293 oz General Appearance: NAD Eye: anicteric sclera ENT: normocephalic atraumatic Neck: supple Heart: murmur present Respiratory: CTAB, no wheezes, no rales, no ronchi Gastrointestinal: soft, non-tender, non-distended, normal bowel sounds Extremities: 1+ LE edema Extremities - other findings: Bilateral lower extremity edema Neurological: cranial nerve grossly intact Psychiatric: normal affect, normal behavior Hosp A/P (1) Rapid atrial fibrillation Code(s): I48.91 - UNSPECIFIED ATRIAL FIBRILLATION Status: Acute (2) Infective endocarditis Code(s): I33.0 - ACUTE AND SUBACUTE INFECTIVE ENDOCARDITIS Status: Acute (3) Severe mitral valve regurgitation Code(s): I34.0 - NONRHEUMATIC MITRAL (VALVE) INSUFFICIENCY Status: Acute (4) Mitral valve prolapse Code(s): I34.1 - NONRHEUMATIC MITRAL (VALVE) PROLAPSE Status: Acute (5) Bacteremia Code(s): R78.81 - BACTEREMIA Status: Acute (6) DM type 2 (diabetes mellitus, type 2) Status: Acute (7) Myositis Code(s): M60.9 - MYOSITIS, UNSPECIFIED Status: Acute (8) Osteomyelitis of toe Code(s): M86.9 - OSTEOMYELITIS, UNSPECIFIED Status: Acute - Plan Assessment This is a 59-year-old male who presented to the hospital with worsening neck and back pain along with bilateral lower extremity weakness. He has had multiple falls prior to presentation. Had a history of Saulo-Tyson virus and the above symptoms have been progressing since his diagnosis. He also tested positive for COVID-19. Primary team at the time of admission initiated IVIG due to concern for ascending paralysis. Spine MRI did not reveal any lesions. Brain MRI showed multiple small acute infarcts OF the cerebral region in the watershed area between the MCA and SYBIL region, and cerebellar regions. N eurology was consulted due to concern for ascending paralysis. Recommended discontinuing IVIG. Due to concern for encephalitis/meningitis and diffuse neuromuscular deterioration in the setting of Covid 19, patient had a lumbar puncture which was unremarkable. She was also found to have left great toe cellulitis which was amputated. His hospital course was further complicated by Streptococcus pyogenous and MSSA bacteremia for which he is currently on ceftriaxone. He was getting ready to be discharged when he developed rapid A. fib, which was further worked up. Underwent a DCCV after ROBB. Normal sinus rhythm has been restored. There is suspicion for small vegetation on echocardiogram. This time patient is medically cleared pending discharge. New onset A. fib status post DCCV and ROBB Possible infective endocarditis Streptococcus pyogenous and MSSA bacteremia Acute CVA Uncontrolled type 2 diabetes mellitus with hyperglycemia A1c of 13.5 Diffuse idiopathic skeletal hyperostosis Physical deconditioning Epistaxis Plan: Start patient on Afrin as needed for epistaxis. If symptoms persist, I will discontinue patient's apixaban Continue diuresis with furosemide management of lower extremity edema. Apply tank wrap to both lower extremities Encourage ambulation continue dronaderone for rate control Continue ceftriaxone 2 g every 24 hours while in-house. Dr. Chavez from infec tious disease has arranged for outpatient cefazolin 2 g every 8 hours after discharge. Patient already has a PICC line in place. Will plan to treat for 4 weeks. Continue IV dexamethasone while in-house Continue vitamin C, D and zinc Continue Lovenox since patient is already on apixaban Continue pantoprazole for GI prophylaxis Continue clonidine and hydralazine for blood pressure control Continue current dose of Lantus 15 units twice daily with insulin sliding scale After completion of antibiotics above, he will need to follow-up with cardiology for valve replacement.
[2020-07-10] MEDS: Dexamethasone 4 mg/ml Vial SLOW IVP SCH (15:20)
[2020-07-10] MEDS: Aspirin 81 mg Enteric Coated Tablet PO SCH (15:22)
[2020-07-10] MEDS: Ascorbic Acid 500 mg Chewable Tablet PO SCH (15:22)
[2020-07-10] MEDS: Apixaban 5 MG TAB PO SCH ×2 (15:22→21:58)
[2020-07-10] MEDS: Cholecalciferol (Vitamin D3) 400 UNITS TAB PO SCH (15:23)
[2020-07-10] MEDS: Furosemide 40 MG TAB PO SCH (15:24)
[2020-07-10] MEDS: Polyethylene Glycol 3350 17 GM Packet PO SCH (15:25)
[2020-07-10] MEDS: Nystatin Cream 15 GM TUBE TOP SCH ×2 (15:25→21:03)
[2020-07-10] MEDS: Zinc Sulfate 220 MG CAP PO SCH (15:25)
[2020-07-10] MEDS: HumaLOG 300 UNITS/3 ML VIAL SC PRN (17:57)
[2020-07-10] MEDS: cefTRIAXone\\ROCEPHIN 2 GM in Sodium Chloride 0.9% 100 ML IVPB SCH (20:50)
[2020-07-10] MEDS: Atorvastatin Calcium 40 MG TAB PO SCH (20:56)
[2020-07-10] MEDS: Lidocaine 5% Patch TD SCH (21:04)
[2020-07-10] MEDS: Melatonin 3 MG TAB PO PRN (22:59)
[2020-07-11 04:07] LABS: Hemoglobin 10.5 g/dL (14.0-18.0); Platelet Count 339 thou/uL (130-400)
[2020-07-11 04:32] LABS: Calc. Creatinine Clearance 138 mL/min (70-130)
[2020-07-11] MEDS: HumaLOG 300 UNITS/3 ML VIAL SC PRN ×3 (05:41→17:43)
[2020-07-11] MEDS: Polyethylene Glycol 3350 17 GM Packet PO SCH ×2 (08:35→08:36)
[2020-07-11] MEDS: Sodium Chloride 0.65% Nasal 44 ML BOT EA NARE SCH ×3 (08:36→16:27)
[2020-07-11] MEDS: Nystatin Cream 15 GM TUBE TOP SCH (08:37)
[2020-07-11] MEDS: Dexamethasone 4 mg/ml Vial SLOW IVP SCH (08:39)
[2020-07-11] MEDS: Furosemide 40 MG TAB PO SCH (08:43)
[2020-07-11] MEDS: Dronedarone HCl 400 MG TAB PO SCH ×2 (08:44→16:27)
[2020-07-11] MEDS: Cholecalciferol (Vitamin D3) 400 UNITS TAB PO SCH (08:44)
[2020-07-11] MEDS: Zinc Sulfate 220 MG CAP PO SCH (08:44)
[2020-07-11] MEDS: Ascorbic Acid 500 mg Chewable Tablet PO SCH (08:44)
[2020-07-11] MEDS: Apixaban 5 MG TAB PO SCH (08:44)
[2020-07-11] MEDS: Aspirin 81 mg Enteric Coated Tablet PO SCH (08:44)
[2020-07-11] MEDS: Insulin Glargine 15 UNITS in Pre-Filled Syringe 1 EACH SC SCH (08:45)
[2020-07-11] MEDS: Transdermal Patch Removal TOP SCH (08:46)
--- NOTE | 2020-07-11 12:49 | PDOC.HOSPP ---
- Subjective Encounter Date: 07/11/20 Subjective: Epistaxis resolved for the most part. Patient is ambulating with a walker with no respiratory distress. Is medically cleared [facility]. Due to ongoing weather condition, there was no available ambulance to facilitate transfer. - Objective Vital Signs & Weight: Vital Signs (12 hours) Temp Pulse Pulse Pulse Resp BP BP 07/11/20 11:35 97.9 F 82 20 07/11/20 10:47 86 81 148/67 H 131/63 07/11/20 08:44 80 07/11/20 07:10 97.9 F 80 20 07/11/20 03:50 97.6 F 81 18 BP BP Pulse Ox 07/11/20 11:35 127/60 97 07/11/20 10:47 07/11/20 08:44 07/11/20 07:10 126/59 L 96 07/11/20 03:50 124/62 97 Weight Admit Weight 199 lb 8.293 oz Weight 199 lb 8.293 oz I&O: 07/10/20 07/11/20 07/12/20 06:59 06:59 06:59 Intake Total 800 537 Output Total 2125 1100 700 Balance -2125 -300 -163 Result Diagrams: 07/11/20 03:48 07/11/20 03:48 Additional Labs: Accuchecks 07/11/20 07/11/20 07/10/20 10:49 05:38 20:55 POC Glucose 299 H 235 H 174 H 07/10/20 07/10/20 07/10/20 16:42 10:42 05:52 POC Glucose 188 H 263 H 240 H Hospitalist ROS - Medication Medications: Active Medications Generic Name Dose Route Start Last Admin Trade Name Freq PRN Reason Stop Dose Admin Acetaminophen 1,000 mg 06/26/20 14:52 07/08/20 02:27 Acetaminophen 500 Mg Tab PO 1,000 mg Q6H PRN Administration Mild Pain (1-3) Apixaban 5 mg 07/07/20 09:00 07/11/20 08:44 Apixaban 5 Mg Tab PO 5 mg BID JULIÁN Administration Ascorbic Acid 1,000 mg 06/25/20 09:00 07/11/20 08:44 Ascorbic Acid 500 Mg Chewable Tablet PO 1,000 mg DAILY JULIÁN Administration Aspirin 81 mg 06/25/20 09:00 07/11/20 08:44 Aspirin 81 Mg Enteric Coated Tablet PO 81 mg DAILY JULIÁN Administration Atorvastatin Calcium 40 mg 06/24/20 21:00 07/10/20 20:56 Atorvastatin Calcium 40 Mg Tab PO 40 mg HS JULIÁN Administration Cholecalciferol 400 units 06/25/20 09:00 07/11/20 08:44 Cholecalciferol (Vitamin D3) 400 Units Tab PO 400 units DAILY JULIÁN Administration Dexamethasone 6 mg 06/28/20 09:00 07/11/20 08:39 Dexamethasone 4 Mg/Ml Vial SLOW IVP 6 mg DAILY JULIÁN Administration Diltiazem HCl 120 mg 07/10/20 09:00 07/11/20 08:44 Diltiazem Cd 120 Mg Cap PO 120 mg DAILY JULIÁN Administration Dronedarone 400 mg 07/03/20 17:00 07/11/20 08:44 Dronedarone Hcl 400 Mg Tab PO 400 mg BID-WM JULIÁN Administration Furosemide 40 mg 07/08/20 07:30 07/11/20 08:43 Furosemide 40 Mg Tab PO 40 mg DAILY-AC JULIÁN Administration Insulin Glargine 15 units/ 0.15 mls @ 0 mls/hr 06/30/20 09:00 07/11/20 08:45 Miscellaneous Medication SC 0.15 mls QAM JULIÁN Administration Insulin Glargine 15 units/ 0.15 mls @ 0 mls/hr 06/30/20 21:00 07/10/20 21:03 Miscellaneous Medication SC 0.15 mls HS JULIÁN Administration Ceftriaxone Sodium 2 gm/ 100 mls @ 200 mls/hr 07/05/20 20:00 07/10/20 20:50 Sodium Chloride IVPB 100 mls Q24HR JULIÁN Administration Insulin Human Lispro 0 units 06/24/20 09:00 07/11/20 11:16 Humalog 300 Units/3 Ml Vial SC 9 units .AGGRESSIVE SLIDING PRN Administration Aggressive Correctional Scale Insulin Human Lispro 0 units 06/24/20 21:34 07/07/20 21:07 Humalog 300 Units/3 Ml Vial SC 3 unit .BEDTIME SLIDING SC PRN Administration Bedtime Correctional Scale Lidocaine 1 patch 06/27/20 22:00 07/10/20 21:04 Lidocaine 5% Patch TD 1 patch 2200 JULIÁN Administration Melatonin 6 mg 06/30/20 23:08 07/10/20 22:59 Melatonin 3 Mg Tab PO 6 mg HS PRN Administration Insomnia Miscellaneous Medication 1 each 06/28/20 10:00 07/11/20 08:46 Lidocaine Patch Removal 1 Each TOP 1 each 1000 JULIÁN Administration Nystatin 1 gm 07/07/20 09:00 07/11/20 08:37 Nystatin Cream 15 Gm Tube TOP 1 applic BID JULIÁN Administration Ondansetron HCl 4 mg 06/23/20 21:09 07/06/20 14:38 Ondansetron Pf 4 Mg/2 Ml Vial IVP 4 mg Q6H PRN Administration Nausea/Vomiting use 1st Oxymetazoline HCl 0 ml 07/04/20 19:29 07/04/20 22:26 Oxymetazoline Hcl 0.05% (30 Ml Bot) NS 30 ml DAILY PRN Administration Bleeding Pantoprazole Sodium 40 mg 06/29/20 09:00 07/11/20 08:44 Pantoprazole 40 Mg Tab PO 40 mg DAILY JULIÁN Administration Polyethylene Glycol 17 gm 06/24/20 09:00 07/11/20 08:36 Polyethylene Glycol 3350 17 Gm Packet PO Not Given DAILY JULIÁN Sodium Chloride 10 ml 07/03/20 09:00 07/11/20 08:43 Flush - Normal Saline 10 Ml Syringe IVF 10 ml Q12HR JULIÁN Administration Sodium Chloride 0 ml 07/04/20 20:00 07/11/20 11:21 Sodium Chloride 0.65% Nasal 44 Ml Bot EA NARE 2 spr 5XD JULIÁN Administration Zinc Sulfate 220 mg 06/25/20 09:00 07/11/20 08:44 Zinc Sulfate 220 Mg Cap PO 220 mg DAILY JULIÁN Administration Hospitalist Exam Vitals: Vital Signs (12 hours) Temp Pulse Pulse Pulse Resp BP BP 07/11/20 11:35 97.9 F 82 20 07/11/20 10:47 86 81 148/67 H 131/63 07/11/20 08:44 80 07/11/20 07:10 97.9 F 80 20 07/11/20 03:50 97.6 F 81 18 BP BP Pulse Ox 07/11/20 11:35 127/60 97 07/11/20 10:47 07/11/20 08:44 07/11/20 07:10 126/59 L 96 07/11/20 03:50 124/62 97 Weight Admit Weight 199 lb 8.293 oz Weight 199 lb 8.293 oz General Appearance: NAD Eye: anicteric sclera ENT: normocephalic atraumatic Neck: supple Heart: murmur present Respiratory: CTAB, no wheezes, no rales, no ronchi Gastrointestinal: soft, non-tender, non-distended Extremities: 1+ LE edema Extremities - other findings: Mild bilateral lower external edema, right more than left Neurological: cranial nerve grossly intact Psychiatric: normal affect, normal behavior Hosp A/P (1) Rapid atrial fibrillation Code(s): I48.91 - UNSPECIFIED ATRIAL FIBRILLATION Status: Acute (2) Infective endocarditis Code(s): I33.0 - ACUTE AND SUBACUTE INFECTIVE ENDOCARDITIS Status: Acute (3) Severe mitral valve regurgitation Code(s): I34.0 - NONRHEUMATIC MITRAL (VALVE) INSUFFICIENCY Status: Acute (4) Mitral valve prolapse Code(s): I34.1 - NONRHEUMATIC MITRAL (VALVE) PROLAPSE Status: Acute (5) Bacteremia Code(s): R78.81 - BACTEREMIA Status: Acute (6) DM type 2 (diabetes mellitus, type 2) Status: Acute (7) Myositis Code(s): M60.9 - MYOSITIS, UNSPECIFIED Status: Acute (8) Osteomyelitis of toe Code(s): M86.9 - OSTEOMYELITIS, UNSPECIFIED Status: Acute - Plan Assessment Patient is a 59-year-old male who presented to the hospital with worsening neck and back pain along with bilateral lower extremity weakness. He has had multiple falls prior to presentation. Had a history of Saulo-Tyson virus and the above symptoms have been progressing since his diagnosis. He also tested positive for COVID-19. Primary team at the time of admission initiated IVIG due to concern for ascending paralysis. Spine MRI did not reveal any lesions. Brain MRI showed multiple small acute infarcts OF the cerebral region in the watershed area between the MCA and SYBIL region, and cerebellar regions. Neurology was consulted due to concern for ascending paralysis. Recommended discontinuing IVIG. Due to concern for encephalitis/meningitis and diffuse neuromuscular deterioration in the setting of Covid 19, patient had a lumbar puncture which was unremarkable. She was also found to have left great toe cellulitis which was amputated. His hospital course was further complicated by Streptococcus pyogenous and MSSA bacteremia for which he is currently on ceftriaxone. He was getting ready to be discharged when he developed rapid A. fib, which was further worked up. Underwent a DCCV after ROBB. Normal sinus rhythm has been restored. There is suspicion for small vegetation on echocardiogram. This time patient is medically cleared pending discharge. New onset A. fib status post DCCV and ROBB Possible infective endocarditis Streptococcus pyogenous and MSSA bacteremia Acute CVA Uncontrolled type 2 diabetes mellitus with hyperglycemia A1c of 13.5 Diffuse idiopathic skeletal hyperostosis Physical deconditioning Epistaxis Plan: Patient is medically cleared. Discharged postponed due to bed and transport availability Continue of lower extremity edema with diuresis and YENY wrap to both lower extremities Encourage ambulation continue dronaderone for rate control Continue ceftriaxone 2 g every 24 hours while in-house. Dr. Chavez from infectious disease has arranged for outpatient cefazolin 2 g every 8 hours after discharge. Patient already has a PICC line in place. Will plan to treat for 4 weeks. Continue IV dexamethasone while in-house Continue vitamin C, D and zinc Continue Lovenox since patient is already on apixaban Continue pantoprazole for GI prophylaxis Continue clonidine and hydralazine for blood pressure control Continue current dose of Lantus 15 units twice daily with insulin sliding scale After completion of antibiotics above, he will need to follow-up with cardiology for valve replacement.
[2020-07-11 16:23] VITALS: BP 120/56; TEMP 97.4
--- NOTE | 2020-07-11 16:41 | PDOC.DS.DS ---
Provider Date of Admission: 06/23/20 18:42 Date of Discharge: 07/11/20 Admitting Provider: Ta Mckeon MD Consultations: Cardiology, Infectious Disease Primary Care Physician: Ta Farias MD Course Hospital Course: Discharge diagnosis: 1. Sepsis 2. Streptococcal and MSSA bacteremia 3. Severe mitral valve regurg and mitral valve prolapse 4. Acute ischemic cerebrovascular accident 5. Toe infection status post amputation 6. Myositis 7. COVID-19 infection 8. New diagnosis of diabetes mellitus type 2 9. Hyponatremia 10. Physical deconditioning Patient is a 59-year-old male who presented to the hospital with worsening neck and back pain along with bilateral lower extremity weakness. He has had multiple falls prior to presentation. Reported history of Saulo-Tyson virus and the above symptoms have been progressing since his diagnosis. He also tested positive for COVID-19. Primary team at the time of admission initiated IVIG due to concern for ascending paralysis. Spine MRI did not reveal any lesions. Brain MRI showed multiple small acute infarcts OF the cerebral region in the watershed area between the MCA and SYBIL region, and cerebellar regions. Neurology was consulted due to concern for ascending paralysis. Recommended discontinuing IVIG. Due to concern for encephalitis/meningitis and diffuse neuromuscular deterioration in the setting of Covid 19, patient had a lumbar puncture which was unremarkable. He was also found to have left great toe ost eomyelitis and underwent amputation. His hospital course was further complicated by Streptococcus pyogenous and MSSA bacteremia for which he is currently on ceftriaxone. He was getting ready to be discharged when he developed rapid A. fib, which was further worked up. Underwent a DCCV after ROBB, which revealed a small vegetation on the mitral valve. 2D echo also revealed severe mitral valve regurg and mitral valve prolapse. He will be discharged to continue long-term Ancef therapy via PICC line. After completing treatment endocarditis, patient will need a valve replacement. Resuscitation Status: 06/23/20 20:57 Resuscitation Status Routine Resuscitation Status: FULL: Full Resuscitation Lab Results: 07/11/20 03:48 07/11/20 03:48 Abnormal Lab Results - Last 48 hrs 07/11/20 03:48: Hgb 10.5 L, Hct 31.5 L Microbiology - Entire Visit 06/28/20 04:34 Venous blood - Right Arm Blood Culture - Final NO GROWTH IN 5 DAYS 06/28/20 04:34 Venous blood - Right Arm Blood Culture - Final NO GROWTH IN 5 DAYS 06/24/20 Unknown Spinal Fluid Body Fluid Culture - Final 06/23/20 15:32 Venous blood - Right Hand Blood Culture - Final Streptococcus pyogenes 06/24/20 18:00 Hand - Abscess Bacterial Culture - Final Beta-hemolytic strep group A 06/23/20 15:33 Venous blood - Left Hand Blood Culture - Final Streptococcus pyogenes 06/23/20 16:11 Urine voided Urine Culture - Final NO GROWTH AT 48 HOURS 06/24/20 12:55 Spinal Fluid Culture - Abscess Cryptococcal Antigen - Final Vitals: Vital Signs (12 hours) Temp Pulse Pulse Pulse Resp BP BP 07/11/20 16:00 97.4 F L 79 16 07/11/20 11:35 97.9 F 82 20 07/11/20 10:47 86 81 148/67 H 131/63 07/11/20 08:44 80 07/11/20 07:10 97.9 F 80 20 BP BP Pulse Ox 07/11/20 16:00 120/56 L 97 07/11/20 11:35 127/60 97 07/11/20 10:47 07/11/20 08:44 07/11/20 07:10 126/59 L 96 Weight Admit Weight 199 lb 8.293 oz Weight 199 lb 8.293 oz Physical Exam: The patient was seen and examined on the day of discharge. General Appearance: NAD ENT: normocephalic atraumatic Cardiovascular: murmur present Extremities: 1+ LE edema PSYCH: normal affect, normal behavior Problem Assessment: Please refer to hospital course (1) Rapid atrial fibrillation Code(s): I48.91 - UNSPECIFIED ATRIAL FIBRILLATION Status: Acute (2) Infective endocarditis Code(s): I33.0 - ACUTE AND SUBACUTE INFECTIVE ENDOCARDITIS Status: Acute (3) Severe mitral valve regurgitation Code(s): I34.0 - NONRHEUMATIC MITRAL (VALVE) INSUFFICIENCY Status: Acute (4) Mitral valve prolapse Code(s): I34.1 - NONRHEUMATIC MITRAL (VALVE) PROLAPSE Status: Acute (5) Bacteremia Code(s): R78.81 - BACTEREMIA Status: Acute (6) DM type 2 (diabetes mellitus, type 2) Status: Acute (7) Myositis Code(s): M60.9 - MYOSITIS, UNSPECIFIED Status: Acute (8) Osteomyelitis of toe Code(s): M86.9 - OSTEOMYELITIS, UNSPECIFIED Status: Acute Plan Prescriptions: Cefazolin [Ancef] 2 gm IV Q8H #14 piggyback Home Medications: Medication Instructions Recorded Confirmed Type Apixaban [Eliquis] 5 mg PO BID tab 07/07/20 Rx Aspirin [Ecotrin Low Strength] 81 mg PO DAILY tab 07/07/20 Rx Atorvastatin Calcium [Lipitor] 40 mg PO HS tab 07/07/20 Rx Cefazolin [Ancef] 2 gm IV Q8H #14 piggyback 07/07/20 Rx Dronedarone HCl [Multaq] 400 mg PO BID-WM tab 07/07/20 Rx Furosemide [Lasix] 40 mg PO DAILY-AC tab 07/07/20 Rx Insulin Glargine [Lantus Vial] 15 units SC QAM vial 07/07/20 Rx Nystatin [Mycostatin Cream] 1 gm TOP BID tube 07/07/20 Rx Pantoprazole [Protonix] 40 mg PO DAILY tab 07/07/20 Rx Allergies: No Known Allergies Allergy (Unverified 06/24/20 13:36) Discharge Instructions:: Instructions from Dr. Fang: after d/c pt to continue on Ancef 2 g iv q8hr end date = august 18 ask rehab to call [phone] when he is discharged to set up home iv ancef with my nurse labs = weekly cbc,crp,cmp Referrals: Jomar Chiang MD [Active] - 2-3 Weeks Ta Farias MD [Primary Care Provider] - Disposition: [facility] Quality CORE MEASURES:: Stroke/TIA Did you prescribe antithrombotic therapy?: Yes Did you prescribe anticoagulant for A Fib/Flutter?: Yes Did you prescribe a statin medication?: Yes
== END 2020-07-11 19:06 | DRG 853 ==
LOC: ERS 13:44 → ERHOLD 18:42 → 2SE 06-24 11:47
PROVIDERS: ADMIT Internal Medicine; ATTEND Internal Medicine
PROC: 00JU3ZZ Inspection of Spinal Canal, Percutaneous Approach (ICD-10-PCS; 2020-06-23)
PROC: XW13325 Transfusion of Convalescent Plasma (Nonautologous) into Peripheral Vein, Percutaneous Approach, New Technology Group 5 (ICD-10-PCS; 2020-06-24)
PROC: 009U3ZX Drainage of Spinal Canal, Percutaneous Approach, Diagnostic (ICD-10-PCS; 2020-06-24)
PROC: 0Y6Q0Z1 Detachment at Left 1st Toe, High, Open Approach (ICD-10-PCS; principal; 2020-06-26)
PROC: B24BZZ4 Ultrasonography of Heart with Aorta, Transesophageal (ICD-10-PCS; 2020-06-26)
PROC: 093K7ZZ Control Bleeding in Nasal Mucosa and Soft Tissue, Via Natural or Artificial Opening (ICD-10-PCS; 2020-07-07)
PROC: 02HV33Z Insertion of Infusion Device into Superior Vena Cava, Percutaneous Approach (ICD-10-PCS; 2020-07-07)
PROC: B548ZZA Ultrasonography of Superior Vena Cava, Guidance (ICD-10-PCS; 2020-07-07)
DX: A40.0 Sepsis due to streptococcus, group A (principal); E11.10 Type 2 diabetes mellitus with ketoacidosis without coma; U07.1 COVID-19; J96.01 Acute respiratory failure with hypoxia; I63.413 Cerebral infarction due to embolism of bilateral middle cerebral arteries; I63.423 Cerebral infarction due to embolism of bilateral anterior cerebral arteries; J12.82 Pneumonia due to coronavirus disease 2019; M86.8X7 Other osteomyelitis, ankle and foot; M60.08 Infective myositis, other site; E87.1 Hypo-osmolality and hyponatremia; E11.69 Type 2 diabetes mellitus with other specified complication; L03.032 Cellulitis of left toe; E11.621 Type 2 diabetes mellitus with foot ulcer; L97.529 Non-pressure chronic ulcer of other part of left foot with unspecified severity; I10 Essential (primary) hypertension; I08.3 Combined rheumatic disorders of mitral, aortic and tricuspid valves; A41.01 Sepsis due to Methicillin susceptible Staphylococcus aureus; R29.702 NIHSS score 2; M48.10 Ankylosing hyperostosis [Forestier], site unspecified; I48.91 Unspecified atrial fibrillation; R04.0 Epistaxis; Z91.19 Patient's noncompliance with other medical treatment and regimen
CPT/HCPCS: 0240U; 36415; 36416; 36430; 36569; 36600; 70450; 70491; 70496; 70498; 70553; 71045; 72128; 72131; 72156; 72157; 72158; 80048; 80053; 80061; 80076; 81003; 81015; 82010; 82330; 82550; 82553; 82565; 82803; 82805; 82945; 83036; 83605; 83735; 83873; 84100; 84132; 84157; 84443; 84484; 85014; 85018; 85025; 85027; 85049; 85060; 85610; 85652; 85730; 86140; 86316; 86592; 86769; 86850; 86900; 86901; 87040; 87070; 87077; 87086; 87149; 87186; 87205; 87798; 87899; 88305; 88311; 89051; 93005; 93010; 93306; 93312; 94150; 96365; 96366; 96367; 96375; 96376; A9579; C1751; J0282; J0692; J0696; J1100; J1160; J1568; J1644; J1650; J1815; J1940; J2060; J2185; J2250; J2270; J2310; J2405; J2540; J2704; J3010; J3370; J3475; J3480; J3490; J7070; P9017; Q9967

== ENCOUNTER 2020-10-20 14:18 | Outpatient (CLI) | payer BC | END 2020-10-20 14:19 | disposition home or self-care (01) | LOC: BICRAD 14:18 | PROVIDERS: ATTEND Physician Assistant | DX: R05 Cough (principal) | CPT/HCPCS: 71046 ==

== ENCOUNTER 2021-02-21 15:21 | Outpatient (CLI) | payer BC | END 2021-02-21 15:22 | disposition home or self-care (01) | LOC: BICMRI 15:21 | PROVIDERS: ATTEND Psychiatry & Neurology Neurology | DX: R53.1 Weakness (principal); M51.26 Other intervertebral disc displacement, lumbar region | CPT/HCPCS: 72148 ==

== ENCOUNTER 2021-03-13 14:41 | Outpatient (CLI) | payer BC ==
[~2021-03-13 14:41] MED LIST: Iopamidol-370 76% 500 ML 1 ML ONE
== END 2021-03-13 14:42 | disposition home or self-care (01) ==
LOC: BICCT 14:41
PROVIDERS: ATTEND Family Medicine
DX: M89.9 Disorder of bone, unspecified (principal); K42.9 Umbilical hernia without obstruction or gangrene
CPT/HCPCS: 71260; 74177; Q9967

== ENCOUNTER 2021-05-02 10:31 | Outpatient (CLI) | payer BC | END 2021-05-02 10:32 | disposition home or self-care (01) | LOC: BICCT 10:31 | PROVIDERS: ATTEND Neurological Surgery | DX: S32.012A Unstable burst fracture of first lumbar vertebra, initial encounter for closed fracture (principal); M48.061 Spinal stenosis, lumbar region without neurogenic claudication | CPT/HCPCS: 72131 ==

== ENCOUNTER 2021-06-21 15:14 | Outpatient (CLI) | payer BC | END 2021-06-21 15:15 | disposition home or self-care (01) | LOC: BICMAMMO 15:14 | PROVIDERS: ATTEND Neurological Surgery | DX: Z13.820 Encounter for screening for osteoporosis (principal); S32.011A Stable burst fracture of first lumbar vertebra, initial encounter for closed fracture; M47.816 Spondylosis without myelopathy or radiculopathy, lumbar region; M81.0 Age-related osteoporosis without current pathological fracture | CPT/HCPCS: 72100; 77080 ==

== ENCOUNTER 2021-06-26 15:06 | Outpatient (CLI) | payer BC | END 2021-06-26 15:07 | disposition home or self-care (01) | LOC: TBSIIMAG 15:06 | PROVIDERS: ATTEND Nurse Practitioner Family | DX: M48.062 Spinal stenosis, lumbar region with neurogenic claudication (principal); S22.081A Stable burst fracture of T11-T12 vertebra, initial encounter for closed fracture | CPT/HCPCS: 72148 ==

== ENCOUNTER 2021-11-05 09:19 | Outpatient (CLI) | payer BC | END 2021-11-05 09:20 | disposition home or self-care (01) | LOC: EKG 09:19 | PROVIDERS: ATTEND Physician Assistant | DX: Z01.810 Encounter for preprocedural cardiovascular examination (principal); I34.0 Nonrheumatic mitral (valve) insufficiency | CPT/HCPCS: 93005; 93010 ==

== ENCOUNTER 2021-11-06 13:19 | Outpatient (CLI) | payer BC | END 2021-11-06 13:20 | disposition home or self-care (01) | LOC: BICCT 13:19 | PROVIDERS: ATTEND Physician Assistant | DX: I34.0 Nonrheumatic mitral (valve) insufficiency (principal) | CPT/HCPCS: 93880 ==

== ENCOUNTER 2022-01-31 11:53 | Outpatient (CLI) | payer BC ==
[2022-01-31 13:46] LABS: Prothrombin Time 10.5 sec (9.5-12.1)
[2022-01-31 14:01] LABS: Anion Gap 13 mmol/L (10-20); BUN (Urea Nitrogen) 20 mg/dL (8.4-25.7); Calc. Creatinine Clearance 0 mL/min (70-130); Calcium 9.1 mg/dL (7.8-10.44); Carbon Dioxide 28 mmol/L (23-31); Chloride 103 mmol/L (98-107); Estimated GFR 83; Glucose 150 mg/dL (80-115); Potassium 5.1 mmol/L (3.5-5.1); Sodium 139 mmol/L (136-145)
== END 2022-01-31 11:54 | disposition home or self-care (01) ==
LOC: LABBT 11:53
PROVIDERS: ATTEND Internal Medicine Cardiovascular Disease
DX: Z01.812 Encounter for preprocedural laboratory examination (principal); Z20.822 Contact with and (suspected) exposure to COVID-19
CPT/HCPCS: 80048; 85610; 87811

== ENCOUNTER 2022-02-04 05:54 | Day surgery (SDC) | payer BC ==
[2022-01-31 15:24] VITALS: BMI 25.7
[2022-02-04] MEDS ORDERED: PROPOFOL 20 ML ONE (07:45)
== END 2022-02-04 09:04 | disposition home or self-care (01) ==
LOC: SDC 05:54
PROVIDERS: ATTEND Internal Medicine Cardiovascular Disease
PROC: B246ZZ4 Ultrasonography of Right and Left Heart, Transesophageal (ICD-10-PCS; principal; 2022-02-04)
DX: I08.1 Rheumatic disorders of both mitral and tricuspid valves (principal); I70.0 Atherosclerosis of aorta; I48.91 Unspecified atrial fibrillation; I10 Essential (primary) hypertension; M81.0 Age-related osteoporosis without current pathological fracture; E11.9 Type 2 diabetes mellitus without complications; E78.5 Hyperlipidemia, unspecified; Z86.16 Personal history of COVID-19; Z86.73 Personal history of transient ischemic attack (TIA), and cerebral infarction without residual deficits; Z79.82 Long term (current) use of aspirin; Z79.83 Long term (current) use of bisphosphonates; Z79.84 Long term (current) use of oral hypoglycemic drugs; Z79.899 Other long term (current) drug therapy; Z98.890 Other specified postprocedural states
CPT/HCPCS: 93312; J2704

== ENCOUNTER 2022-04-10 20:36 | Inpatient (IN) | payer BC ==
[2022-04-10 21:43] VITALS: BMI 25.7
[2022-04-10] MEDS ORDERED: Ondansetron ODT 4 MG TAB PO PRN (22:52)
[2022-04-10] MEDS ORDERED: Insulin Regular 300 UNITS/3 ML VIAL SC PRN (22:52)
[2022-04-10] MEDS ORDERED: Ondansetron PF 4 MG/2 ML Vial IVP PRN (22:52)
[2022-04-10] MEDS ORDERED: Dextrose 5% in Water 1,000 ML IV PRN (22:52)
[2022-04-10] MEDS ORDERED: Labetalol HCl 100 MG/20 ML VIAL SLOW IVP PRN (22:52)
[2022-04-10] MEDS ORDERED: Dextrose 50% Abboject 50 ML SYRINGE SLOW IVP PRN (22:52)
[2022-04-10] MEDS ORDERED: Acetaminophen 325 MG TAB PO PRN (22:52)
[2022-04-10] MEDS ORDERED: Cyclobenzaprine 10 MG TAB PO PRN (22:58)
[2022-04-10] MEDS ORDERED: Non-Formulary Item 1 EACH (Ibandronate Sodium [Boniva] 150 MG Tablet) PO SCH (23:00)
[2022-04-11 05:24] LABS: #Basophils 0.1 thou/uL (0.0-0.2); #Eosinphils 0.3 thou/uL (0.0-0.7); #Lymphocytes 1.9 thou/uL (1.20-3.40); #Monocytes 0.5 thou/uL (0.11-0.59); #Neutrophils 3.9 thou/uL (1.40-6.50); %Basophils 0.9 % (0.0-1.0); %Eosinophils 4.2 % (0.0-10.0); %Lymphocytes 28.5 % (21.0-51.0); %Monocytes 6.8 % (0.0-10.0); %Neutrophils 59.5 % (42.0-75.0); Hemoglobin 13.1 g/dL (14.0-18.0); Mean Corpuscular HGB CONC 31.2 g/dL (32.0-36.0); Mean Corpuscular Hemoglobin 26.9 pg (27.0-31.0); Mean Corpuscular Volume 86.1 fl (78.0-98.0); Mean Platelet Volume 8.3 fL (7.4-10.4); Platelet Count 316 10x3/uL (130-400); Red Blood Cell (RBC) Count 4.88 mill/uL (4.70-6.10); White Blood Cell (WBC) Count 6.6 10x3/uL (4.8-10.8)
[2022-04-11 05:45] LABS: ALT (SGPT) 18 U/L (8-55); AST (SGOT) 18 U/L (5-34); Albumin 3.6 g/dL (3.4-4.8); Alkaline Phosphatase 100 U/L (40-110); Anion Gap 9 mmol/L (10-20); BUN (Urea Nitrogen) 9 mg/dL (8.4-25.7); Bilirubin, Total 0.3 mg/dL (0.2-1.2); Calc. Creatinine Clearance 121 mL/min (70-130); Carbon Dioxide 29 mmol/L (23-31); Cardiac Risk 3.3 (Less than 4.5); Chloride 103 mmol/L (98-107); Cholesterol 158 mg/dl (< 200 Desired); Estimated GFR 101; Globulin 3.4 g/dL (2.4-3.5); Glucose 148 mg/dL (80-115); HDL Cholesterol 48 mg/dL (>60 Neg Risk); LDL Cholesterol, Calculated 91 mg/dL; Potassium 4.3 mmol/L (3.5-5.1); Sodium 137 mmol/L (136-145); Triglycerides 94 mg/dL (Less than 150)
[2022-04-11] MEDS: Alogliptin 6.25 MG TAB PO SCH (08:31)
[2022-04-11] MEDS: Aspirin 81 mg Enteric Coated Tablet PO SCH (08:31)
[2022-04-11] MEDS: Insulin Regular 300 UNITS/3 ML VIAL SC PRN ×2 (12:19→18:00)
[2022-04-11] MEDS ORDERED: Losartan 25 MG TAB PO SCH ×2 (18:00→18:30)
[2022-04-11] MEDS: Apixaban 5 MG TAB PO SCH (20:27)
[2022-04-11] MEDS ORDERED: Atorvastatin Calcium 40 MG TAB PO SCH (21:00)
[2022-04-12 08:39] VITALS: BP 160/94; TEMP 98.3
[2022-04-12] MEDS ORDERED: Losartan 25 MG TAB PO SCH ×4 (09:00→21:00)
[2022-04-12] MEDS: Alogliptin 6.25 MG TAB PO SCH (10:08)
[2022-04-12] MEDS: Aspirin 81 mg Enteric Coated Tablet PO SCH (10:09)
[2022-04-12] MEDS: Apixaban 5 MG TAB PO SCH (10:09)
== END 2022-04-12 12:59 | disposition home or self-care (01) | DRG 69 ==
LOC: NEURO 20:36 → OBSVTOIN 04-11 18:02
PROVIDERS: ADMIT Internal Medicine; ATTEND Family Medicine
DX: G45.9 Transient cerebral ischemic attack, unspecified (principal); I10 Essential (primary) hypertension; E11.9 Type 2 diabetes mellitus without complications; M81.0 Age-related osteoporosis without current pathological fracture; I34.1 Nonrheumatic mitral (valve) prolapse; I48.0 Paroxysmal atrial fibrillation; K20.90 Esophagitis, unspecified without bleeding; K21.9 Gastro-esophageal reflux disease without esophagitis; Z20.822 Contact with and (suspected) exposure to COVID-19; Z79.82 Long term (current) use of aspirin; Z79.899 Other long term (current) drug therapy
CPT/HCPCS: 36415; 36416; 70551; 80053; 80061; 85025; 93306; J1815; U0003; U0005

== ENCOUNTER 2022-07-14 19:00 | Outpatient (CLI) | payer BC | END 2022-07-14 19:01 | disposition home or self-care (01) | LOC: SLEEPLAB 19:00 | PROVIDERS: ATTEND Physician Assistant | DX: G47.33 Obstructive sleep apnea (adult) (pediatric) (principal); R53.83 Other fatigue; G47.10 Hypersomnia, unspecified; E66.9 Obesity, unspecified; G47.00 Insomnia, unspecified; I63.9 Cerebral infarction, unspecified; I25.10 Atherosclerotic heart disease of native coronary artery without angina pectoris; I10 Essential (primary) hypertension; E11.9 Type 2 diabetes mellitus without complications | CPT/HCPCS: 95810 ==

== ENCOUNTER 2022-08-05 19:30 | Outpatient (CLI) | payer BC | END 2022-08-05 19:31 | disposition home or self-care (01) | LOC: SLEEPLAB 19:30 | PROVIDERS: ATTEND Physician Assistant | DX: G47.33 Obstructive sleep apnea (adult) (pediatric) (principal); G47.10 Hypersomnia, unspecified | CPT/HCPCS: 95811 ==

== ENCOUNTER 2025-02-25 13:21 | Outpatient (CLI) | payer MEDICARE, BC | END 2025-02-25 13:22 | disposition home or self-care (01) | LOC: BICRAD 13:21 | DX: M54.41 Lumbago with sciatica, right side (principal); M54.42 Lumbago with sciatica, left side; M25.551 Pain in right hip; G89.29 Other chronic pain; M16.11 Unilateral primary osteoarthritis, right hip; M40.46 Postural lordosis, lumbar region; S32.019D Unspecified fracture of first lumbar vertebra, subsequent encounter for fracture with routine healing; M47.817 Spondylosis without myelopathy or radiculopathy, lumbosacral region; M48.07 Spinal stenosis, lumbosacral region | CPT/HCPCS: 72100 ==